=== PATIENT | male | born 1965 | race Two or more races ===

== ENCOUNTER 2024-02-19 22:42 | Emergency (ER) | payer OTHER, MEDICAID ==
[~2024-02-19] VITALS: Ht 167.6 cm; Wt 100.0 kg
[2024-02-19] MEDS: FAMOTIDINE (10MG/ML) 2ML VL IV ONE (23:00)
[2024-02-19] MEDS: SODIUM CHLORIDE 0.9% 500 ML IV ONE (23:00)
[2024-02-19] MEDS ORDERED: ONDANSETRON HCL 4 MG/2 ML VIAL IV ONE (23:00)
--- NOTE | 2024-02-19 23:04 | ED.PDOC ---
GI ASSESSMENT HPI Comments 58-year-old male came to ER via EMS for nausea and vomiting. Patient for the past couple of hours having episodes of nausea and vomiting, about 4-5 times, blackish in color. Noted to have abdominal discomfort, but denies any acute pain or changes in bowel habit. Patient admits that he has been drinking alcoh ol today. He does take Plavix for a recent cranial surgery/coiling of aneurysm. 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 Allergies: Coded Allergies: NO KNOWN ALLERGIES (Unverified , 02/19/24) Home Meds Active Scripts Famotidine (PEPCID TABLET) 20 Mg Tb, 1 TAB PO BID PRN for 30 Days, #60 TAB 5 Refills Prov:CHRISTEL LYON MD 02/20/24 Ondansetron HCl (Ondansetron Hydrochloride) 8 Mg Tab, 8 MG PO Q6HP PRN for 10 Days, #40 TAB Prov:CHRISTEL LYON MD 02/20/24 Famotidine (PEPCID TABLET) 20 Mg Tb, 1 TAB PO BID PRN for 10 Days, #20 TAB 5 Refills Prov:CHRISTEL LYON MD 02/20/24 Ondansetron HCl (Ondansetron Hydrochloride) 8 Mg Tab, 8 MG PO Q6HP PRN for 10 Days, #40 TAB Prov:CHRISTEL LYON MD 02/20/24 Information Source: Patient, Emergency Med Personnel Mode of Arrival: EMS Timing: Hours Duration: Since onset Prehospital treatment: None Quality: Aching Vomitus: Blood on Tissue Paper, Coffee Grounds Stool: Normal Severity: Moderate Recent: Ingestion of ETOH Recent Hx of: None Pain Location: Epigastric Modifying Factors: Nothing Associated sign and symptoms: Nausea, Vomiting, Hematemesis, Abdominal Pain Past Medical History PAST MEDICAL HISTORY: High Lipids, HTN Surgical History (Other): Coiling of aneurysm last month Family History Family History: Reviewed,noncontributory to illness Social History Smoker: Non-Smoker Alcohol: Heavy Drugs: Denies Drug Use Lives In: Home Constitutional: denies: chills, diaphoresis, fatigue, fever, malaise, sweats, weakness, others EENTM: denies: blurred vision, double vision, ear bleeding, ear discharge, ear drainage, ear pain, ear ringing, eye pain, eye redness, hearing loss, mouth pain, mouth swelling, nasal discharge, nose bleeding, nose congestion, nose pain, photophobia, tearing, throat pain, throat swelling, voice changes, others Respiratory: denies: cough, hemoptysis, orthopnea, SOB at rest, shortness of breath, SOB with excertion, stridor, wheezing, others Cardiovascular: denies: chest pain, dizzy spells, diaphoresis, Dyspnea on exertion, edema, irregular heart beat, left arm pain, lightheadedness, palpitations, PND, syncope, others Gastrointestinal: reports: abdominal pain, hematemesis, nausea, vomiting; denies: abdomen distended, blood streaked bowels, constipated, diarrhea, dysphagia, difficulty swallowing, melena, poor appetite, poor fluid intake, rectal bleeding, rectal pain, others Genitourinary: denies: burning, dysuria, flank pain, frequency, hematuria, incontinence, penile discharge, penile sore, pain, testicle pain, testicle swelling, urgency, others Neurological: denies: dizziness, fainting, headache, left sided numbness, left sided weakness, numbness, paresthesia, pre-existing deficit, right sided numbness, right sided weakness, seizure, speech problems, tingling, tremors, weakness, others Musculoskeletal: denies: back pain, gout, joint pain, joint swelling, muscle pain, muscle stiffness, neck pain, others Integumetry: denies: bruises, change in color, change in hair/nails, dryness, laceration, lesions, lumps, rash, wounds, others Allergic/Immunocompromised: denies: Difficulty Healing, Frequent Infections, Hives, Itching, others Hematologic/Lymphatic: denies: anemia, blood clots, easy bleeding, easy bruising, swollen glands, others Endocrine: denies: excessive hunger, excessive sweating, excessive thirst, excessive urination, flushing, intolerance to cold, intolerance to heat, unexplained weight gain, unexplained weight loss, others Psychiatric: denies: anxiety, bipolar disorder, depression, hopeless, panic disorder, schizophrenia, sleepless, suicidal, others Physical Exam General Appearance: No Apparent Distress, Normal HEENT: Normal ENT Inspection, Pharynx Normal, TMs Normal Neck: Full Range of Motion, Non-Tender, Normal, Normal Inspection Respiratory: Chest Non-Tender, Lungs Clear, No Accessory Muscle Use, No Respiratory Distress, Normal Breath Sounds Cardiovascular: No Edema, No JVD, No Murmur, No Gallop, Normal Peripheral Pulses, Regular Rate/Rhythm Breast Exam: Deferred Gastrointestinal: No Organomegaly, Non Tender, No Pulsatile Mass, Normal Bowel Sounds, Soft Genitalia: Deferred Pelvic: Deferred Rectal: Deferred Extremities: No calf tenderness, Normal capillary refill, Normal inspection, Normal range of motion, Non-tender, No pedal edema Musculoskeletal : Apperance: Normal Neurologic: Alert, bucket hooker II-XII nml as Tested, No Motor Deficits, Normal Affect, Normal Mood, No Sensory Deficits Cerebellar Function: Normal Reflexes: Normal Skin: Dry, Normal Color, Warm Lymphatic: No Adenopathy Was a procedure done? Was a procedure done?: No GI differential Dx Differential Diagnosis: Diverticular disease, Gastritis/PUD, Gastroenteritis, GI hemorrhage, Pancreatitis, UTI, Urolithiasis, Dehydration, Anemia, Esophageal Varicies X-Ray, Labs, Meds, VS Vital Signs Date Time Temp Pulse Resp B/P (MAP) Pulse Ox O2 Delivery O2 Flow Rate FiO2 02/20/24 00:40 98.5 83 21 110/74 (86) 96 98.5 02/19/24 22:50 98.5 92 18 131/80 (97) 99 Lab Test 02/19/24 23:05 Range/Units White Blood Count 6.1 4.4-10.8 10^3/uL Red Blood Count 4.48 L 4.5-5.90 10^6/uL Hemoglobin 12.4 L 13.5-17.5 g/dL Hematocrit 37.8 L 41.0-53.0 % Mean Corpuscular Volume 84.5 80.0-100.0 fL Mean Corpuscular Hemoglobin 27.6 L 28.0-32.0 pg Mean Corpuscular Hemoglobin Concent 32.6 32.0-36.0 g/dL Red Cell Distribution Width 15.1 H 11.8-14.3 % Platelet Count 394 140-450 10^3/uL Mean Platelet Volume 7.8 6.9-10.8 fL Neutrophils (%) (Auto) 61.2 37.0-80.0 % Lymphocytes (%) (Auto) 19.3 10.0-50.0 % Monocytes (%) (Auto) 6.8 0.0-12.0 % Eosinophils (%) (Auto) 11.9 H 0.0-7.0 % Basophils (%) (Auto) 0.8 0.0-2.0 % Neutrophils # (Auto) 3.7 1.6-8.6 10 ^3/uL Lymphocytes # (Auto) 1.2 0.4-5.4 10 ^3/uL Monocytes # (Auto) 0.4 0-1.3 10 ^3/uL Eosinophils # (Auto) 0.7 0-0.8 10 ^3/uL Basophils # (Auto) 0 0-0.2 10 ^3/uL Nucleated Red Blood Cells 0.1 % Prothrombin Time 11.5 9.3-11.8 sec Prothrombin Time INR 1.09 0.9-1.15 Activated Partial Thromboplast Time 29.8 24.5-34.5 SEC Sodium Level 141 136-145 mmol/L Potassium Level 3.2 L 3.5-5.1 mmol/L Chloride Level 99 98-107 mmol/L Carbon Dioxide Level 30 20-31 mmol/L Anion Gap 12 5-15 Blood Urea Nitrogen 18 9-23 mg/dL Creatinine 0.73 0.700-1.30 mg/dL Glomerular Filtration Rate Calc 105 >90 mL/min BUN/Creatinine Ratio 24.7 H 10.0-20.0 Serum Glucose 124 H 74-106 mg/dL Calcium Level 9.9 8.7-10.4 mg/dL Total Bilirubin 0.3 0.2-1.0 mg/dL Aspartate Amino Transferase (AST) 25 13-40 U/L Alanine Aminotransferase (ALT) 32 7-40 U/L Alkaline Phosphatase 98 46-116 U/L Total Protein 7.4 5.7-8.2 g/dL Albumin 4.4 3.2-4.8 g/dL Current Medications Medications (Trade) Dose Ordered Sig/Magdalene Route Start Time Stop Time Status Last Admin Famotidine (Pepcid Tablet) 40 mg ONCE ONCE PO 02/20/24 00:15 02/20/24 00:16 DC 02/20/24 00:30 Al Hydrox/Mg Hydrox/Simethicone (Maalox Plus) 30 ml ONCE ONCE PO 02/20/24 00:15 02/20/24 00:16 DC 11/30/24 00:30 Ondansetron HCl (Zofran Po) 4 mg ONCE ONCE PO 02/20/24 00:25 02/20/24 00:26 DC 02/20/24 00:30 Time of 1ST Reevaluation: 22:57 Reevaluation 1ST: Unchanged Patient Education/Counseling: Diagnosis, Treatment Family Education/Counseling: No Family Present Departure 1 Departure Time of Disposition: 23:50 Impression: Primary Impression: Nausea and vomiting Disposition: 01 HOME / SELF CARE / HOMELESS Condition: Stable e-Prescriptions Famotidine (PEPCID TABLET) 20 Mg Tb 1 TAB PO BID PRN for 30 Days, #60 TAB 5 Refills Prov: CHRISTEL LYON MD 02/20/24 Ondansetron HCl (Ondansetron Hydrochloride) 8 Mg Tab 8 MG PO Q6HP PRN for 10 Days, #40 TAB Prov: CHRISTEL LYON MD 02/20/24 Famotidine (PEPCID TABLET) 20 Mg Tb 1 TAB PO BID PRN for 10 Days, #20 TAB 5 Refills Prov: CHRISTEL LYON MD 02/20/24 Ondansetron HCl (Ondansetron Hydrochloride) 8 Mg Tab 8 MG PO Q6HP PRN for 10 Days, #40 TAB Prov: CHRISTEL LYON MD 02/20/24 Discharged With: Self Critical Care Note Critical Care Time?: No Stability Stability form required: No Heart Score Heart Score: Heart Score Response (Comments) Value History Slightly Suspicious 0 EKG Normal 0 Age 45-64 1 Risk Factors 1 or 2 risk factors 1 Troponin Normal limit 0 Total 2 I personally scribed for CHRISTEL LYON MD ([email or web address]) on 02/19/24 at 23:04. Electronically submitted by Chema Oden ([email or web address]). CHRISETL LYON MD Feb 19, 2024 23:04
[2024-02-19 23:19] LABS: Basophils # (auto) 0 10 ^3/uL (0-0.2); Basophils % (auto) 0.8 % (0.0-2.0); Eosinophils # (auto) 0.7 10 ^3/uL (0-0.8); Eosinophils % (auto) 11.9 % (0.0-7.0); Hematocrit 37.8 % (41.0-53.0); Hemoglobin 12.4 g/dL (13.5-17.5); Lymphocytes # (auto) 1.2 10 ^3/uL (0.4-5.4); Lymphocytes % (auto) 19.3 % (10.0-50.0); Mean Corpuscular Hemoglobin 27.6 pg (28.0-32.0); Mean Corpuscular Hgb Conc. 32.6 g/dL (32.0-36.0); Mean Corpuscular Volume 84.5 fL (80.0-100.0); Monocytes # (auto) 0.4 10 ^3/uL (0-1.3); Monocytes % (auto) 6.8 % (0.0-12.0); Neutrophils # (auto) 3.7 10 ^3/uL (1.6-8.6); Neutrophils % (auto) 61.2 % (37.0-80.0); Nucleated Red Blood Cells % 0.1 %; Platelet Count (auto) 394 10^3/uL (140-450); Red Blood Cells 4.48 10^6/uL (4.5-5.90); Red Cell Distribution Width 15.1 % (11.8-14.3); White Blood Cell 6.1 10^3/uL (4.4-10.8)
[2024-02-19 23:34] LABS: INR 1.09 (0.9-1.15); Partial Thromboplastin Time 29.8 SEC (24.5-34.5); Prothrombin Time 11.5 sec (9.3-11.8)
[2024-02-19 23:45] LABS: Alanine Aminotransferase 32 U/L (7-40); Albumin 4.4 g/dL (3.2-4.8); Alkaline Phosphatase 98 U/L (46-116); Anion Gap 12 (5-15); Aspartate Aminotransferase 25 U/L (13-40); BUN/Creatinine Ratio 24.7 (10.0-20.0); Blood Urea Nitrogen 18 mg/dL (9-23); Calcium 9.9 mg/dL (8.7-10.4); Carbon Dioxide 30 mmol/L (20-31); Chloride 99 mmol/L (98-107); Sodium 141 mmol/L (136-145)
[2024-02-19 23:46] LABS: Total Protein 7.4 g/dL (5.7-8.2)
[2024-02-19 23:54] LABS: Potassium 3.2 mmol/L (3.5-5.1)
[2024-02-19 23:55] LABS: Bilirubin, Total 0.3 mg/dL (0.2-1.0); Glucose 124 mg/dL (74-106)
[2024-02-20] MEDS ORDERED: ONDA-180 PO (00:11)
[2024-02-20] MEDS ORDERED: FAMO20TA10 PO (00:11)
[2024-02-20] MEDS: ONDANSETRON ODT 4 MG TAB PO ONE (00:30)
[2024-02-20] MEDS: FAMOTIDINE 20 MG TAB PO ONE (00:30)
[2024-02-20] MEDS: MAALOX PLUS or MAALOX 30 ML PO ONE (00:30)
[2024-02-20 00:40] VITALS: BP 110/74; PULSE 83; RESP 21; TEMP 98.5; O2SAT 96
== END 2024-02-20 00:41 | disposition home or self-care (01) ==
LOC: EDBD 22:42 → ER 22:42
DX: R11.2 Nausea with vomiting, unspecified (principal); E78.5 Hyperlipidemia, unspecified; I10 Essential (primary) hypertension; F10.10 Alcohol abuse, uncomplicated; Z98.890 Other specified postprocedural states; Z79.899 Other long term (current) drug therapy
CPT/HCPCS: 36415; 80053; 85025; 85610; 85730; 99284; Q0162

== ENCOUNTER 2024-08-22 03:05 | Inpatient (IN) | payer OTHER, MEDICAID ==
[2024-08-22] VITALS (7 sets, daily range): BP systolic 133–154; BP diastolic 77–83; PULSE 66–98; RESP 12–21; TEMP 98–98.6; O2SAT 95–98
[~2024-08-22] VITALS: Ht 175.3 cm; Wt 104.0 kg
[~2024-08-22 03:05] MED LIST: FAMO20TA10 PO; ONDA-180 PO
--- NOTE | 2024-08-22 03:49 | ED.PDOC ---
History of Present Illness HPI Comments 58 y/o M is BIBA for c/o nonradiating, diffused abdominal pain, with associated nausea and vomiting. Patient is a poor historian. He endorses on sudden and unprovoked onset of symptoms, that awoke him from his sleep, this morning. History of craniotomy, coiling of aneurism, C3-7 spine surgery, HLD, HTN, and alcohol abuse reported. Patient denies having any bloody or bilious vomitus, diarrhea, constipation, urinary symptoms, fever, chills, or further associated symptoms. Vitals were within normal limits and stable, with exception on being hypertensive. Chief Complaint: Abdominal Pain Time Seen by MD: 03:30 Reviewed Notes: Nurses Notes, Geophysical Laboratory Director Notes, Medications, Allergies Allergies: Coded Allergies: NO KNOWN ALLERGIES (Unverified , 02/19/24) Home Meds Active Scripts Famotidine (PEPCID TABLET) 20 Mg Tb, 1 TAB PO BID PRN for 30 Days, #60 TAB 5 Refills Prov:CHRISTEL LYON MD 02/20/24 Ondansetron HCl (Ondansetron Hydrochloride) 8 Mg Tab, 8 MG PO Q6HP PRN for 10 Days, #40 TAB Prov:CHRISTEL LYON MD 02/20/24 Famotidine (PEPCID TABLET) 20 Mg Tb, 1 TAB PO BID PRN for 10 Days, #20 TAB 5 Refills Prov:CHRISTEL LYON MD 02/20/24 Ondansetron HCl (Ondansetron Hydrochloride) 8 Mg Tab, 8 MG PO Q6HP PRN for 10 Days, #40 TAB Prov:CHRISTEL LYON MD 02/20/24 Information Source: Patient, Emergency Med Personnel Mode of Arrival: Ambulatory Severity: Moderate Timing: Hours Duration: Since onset Prehospital treatment: 12 Lead EKG, Accucheck, Building Pressure Washer Past Medical History PAST MEDICAL HISTORY: High Lipids, HTN Past Medical History (Other): brain aneurism Surgical History (Other): Craniotomy C3-7 spine surgery Coiling of aneurism Family History Family History: Reviewed,noncontributory to illness Social History Smoker: Non-Smoker Alcohol: Heavy Drugs: Denies Drug Use Lives In: Home All Other Systems: Reviewed and Negative (Comprehensive systems review obtained and negative except for what is stated in the HPI.) Physical Exam General Appearance: No Apparent Distress, Normal HEENT: Normal ENT Inspection, Pharynx Normal, TMs Normal Neck: Full Range of Motion, Non-Tender, Normal, Normal Inspection Respiratory: Chest Non-Tender, Lungs Clear, No Accessory Muscle Use, No Respiratory Distress, Normal Breath Sounds Cardiovascular: No Edema, No JVD, No Murmur, No Gallop, Normal Peripheral Puls es, Regular Rate/Rhythm Breast Exam: Deferred Gastrointestinal: Diffuse (tenderness), No Organomegaly, No Pulsatile Mass, Normal Bowel Sounds, Soft, Tenderness (diffused ) Genitalia: Deferred Pelvic: Deferred Rectal: Deferred Extremities: No calf tenderness, Normal capillary refill, Normal inspection, Normal range of motion, Non-tender, No pedal edema Musculoskeletal : Apperance: Normal Neurologic: Alert, novelties sales representative II-XII nml as Tested, No Motor Deficits, Normal Affect, Normal Mood, No Sensory Deficits Cerebellar Function: Normal Reflexes: Normal Skin: Dry, Normal Color, Warm Lymphatic: No Adenopathy Was a procedure done? Was a procedure done?: No Differential Dx Considerations may include: gastritis, gastroenteritis, cholelithiasis, cholecystitis, nephrolithiasis, UTI, diverticulitis, appendicitis, among others X-Ray, Labs, Meds, VS Vital Signs Date Time Temp Pulse Resp B/P (MAP) Pulse Ox O2 Delivery O2 Flow Rate FiO2 08/22/24 03:05 98.5 87 18 141/83 (102) 99 98.5 Lab Test 08/22/24 04:38 08/22/24 03:37 Range/Units Troponin I High Sensitivity 3 L < 3 L </=54 ng/L White Blood Count 5.1 4.4-10.8 10^3/uL Red Blood Count 5.18 4.5-5.90 10^6/uL Hemoglobin 14.5 13.5-17.5 g/dL Hematocrit 43.0 41.0-53.0 % Mean Corpuscular Volume 83.1 80.0-100.0 fL Mean Corpuscular Hemoglobin 28.1 28.0-32.0 pg Mean Corpuscular Hemoglobin Concent 33.8 32.0-36.0 g/dL Red Cell Distribution Width 19.8 H 11.8-14.3 % Platelet Count 249 140-450 10^3/uL Mean Platelet Volume 8.5 6.9-10.8 fL Neutrophils (%) (Auto) 72.8 37.0-80.0 % Lymphocytes (%) (Auto) 18.9 10.0-50.0 % Monocytes (%) (Auto) 5.3 0.0-12.0 % Eosinophils (%) (Auto) 2.3 0.0-7.0 % Basophils (%) (Auto) 0.7 0.0-2.0 % Neutrophils # (Auto) 3.7 1.6-8.6 10 ^3/uL Lymphocytes # (Auto) 1.0 0.4-5.4 10 ^3/uL Monocytes # (Auto) 0.3 0-1.3 10 ^3/uL Eosinophils # (Auto) 0.1 0-0.8 10 ^3/uL Basophils # (Auto) 0 0-0.2 10 ^3/uL Nucleated Red Blood Cells 0.0 % Sodium Level 135 L 136-145 mmol/L Potassium Level 3.5 3.5-5.1 mmol/L Chloride Level 95 L 98-107 mmol/L Carbon Dioxide Level 26 20-31 mmol/L Anion Gap 14 5-15 Blood Urea Nitrogen 16 9-23 mg/dL Creatinine 1.27 0.700-1.30 mg/dL Glomerular Filtration Rate Calc 65 >90 mL/min BUN/Creatinine Ratio 12.6 10.0-20.0 Serum Glucose 141 H 74-106 mg/dL Calcium Level 10.0 8.7-10.4 mg/dL Current Medications Medications (Trade) Dose Ordered Sig/Magdalene Route Start Time Stop Time Status Last Admin Sodium Chloride 1,000 ml @ 1,000 mls/hr Q1H ONCE IV 08/22/24 03:30 08/22/24 04:29 DC 08/22/24 03:53 Ondansetron HCl (Zofran) 4 mg ONCE ONCE IV 08/22/24 03:30 08/22/24 03:31 DC 08/22/24 03:53 Famotidine (Pepcid Injection) 20 mg ONCE ONCE IV 08/22/24 03:30 08/22/24 03:31 DC 08/22/24 03:53 Ondansetron HCl (Zofran) 4 mg ONCE ONCE IV 08/22/24 04:30 08/22/24 04:31 DC 08/22/24 04:28 Time of 1ST Reevaluation: 04:00 Reevaluation 1ST: Unchanged Patient Education/Counseling: Diagnosis, Treatment Family Education/Counseling: No Family Present Additional Information Previous visits reviewed: February 19, 2024 encounter for nausea and vomiting The following tests were ordered, and results were reviewed by me: EKG, CXR, CBC, BMP, troponin Additional Information was gathered from interviewing the following independent historians: EMS I reviewed and agreed with the following test results read by other providers: CXR I discussed treatment and results with medical personnel and: patient Departure 1 Departure Time of Disposition: 05:39 (Patient with intractable abdominal pain. Labs x- ray otherwise benign. We will admit patient for further workup and expert consultation) Impression: Primary Impression: Intractable abdominal pain Additional Impression: Nausea and vomiting Qualified Codes: R11.2 - Nausea with vomiting, unspecified Disposition: ADMITTED INPATIENT Admit to: Med Surg Condition: Serious Critical Care Note Critical Care Time?: No Stability Stability form required: No Heart Score Heart Score: Heart Score Response (Comments) Value History N/A 0 EKG N/A 0 Age N/A 0 Risk Factors N/A 0 Troponin N/A 0 Total 0 I personally scribed for BREE CARTER MD ([email or web address]) on 08/22/24 at 03:49. Electronically submitted by Pio Bess ([email or web address]). BREE CARTER MD Aug 22, 2024 03:49
[2024-08-22 03:51] LABS: Basophils # (auto) 0 10 ^3/uL (0-0.2); Basophils % (auto) 0.7 % (0.0-2.0); Eosinophils # (auto) 0.1 10 ^3/uL (0-0.8); Eosinophils % (auto) 2.3 % (0.0-7.0); Hemoglobin 14.5 g/dL (13.5-17.5); Lymphocytes % (auto) 18.9 % (10.0-50.0); Mean Corpuscular Hemoglobin 28.1 pg (28.0-32.0); Mean Corpuscular Hgb Conc. 33.8 g/dL (32.0-36.0); Mean Corpuscular Volume 83.1 fL (80.0-100.0); Monocytes # (auto) 0.3 10 ^3/uL (0-1.3); Monocytes % (auto) 5.3 % (0.0-12.0); Neutrophils # (auto) 3.7 10 ^3/uL (1.6-8.6); Neutrophils % (auto) 72.8 % (37.0-80.0); Platelet Count (auto) 249 10^3/uL (140-450); Red Blood Cells 5.18 10^6/uL (4.5-5.90); Red Cell Distribution Width 19.8 % (11.8-14.3); White Blood Cell 5.1 10^3/uL (4.4-10.8)
[2024-08-22] MEDS: ONDANSETRON HCL 4 MG/2 ML VIAL IV ONE ×3 (03:53→05:42)
[2024-08-22] MEDS: FAMOTIDINE (10MG/ML) 2ML VL IV ONE (03:53)
[2024-08-22] MEDS: SODIUM CHLORIDE 0.9% 1,000 ML IV ONE ×2 (03:53→09:29)
[2024-08-22 04:07] LABS: Potassium 3.5 mmol/L (3.5-5.1)
[2024-08-22 04:08] LABS: Anion Gap 14 (5-15); Carbon Dioxide 26 mmol/L (20-31); Chloride 95 mmol/L (98-107); Sodium 135 mmol/L (136-145)
[2024-08-22 04:13] LABS: BUN/Creatinine Ratio 12.6 (10.0-20.0); Blood Urea Nitrogen 16 mg/dL (9-23)
[2024-08-22 04:15] LABS: Glucose 141 mg/dL (74-106)
--- NOTE | 2024-08-22 05:41 | DVH ---
EXAM: XR Chest, 1 View CLINICAL INDICATION: chest pain TECHNIQUE: Frontal view of the chest. COMPARISON: None FINDINGS: LUNGS AND PLEURAL SPACES: Unremarkable. No consolidation. No pneumothorax. HEART: Unremarkable. No cardiomegaly. MEDIASTINUM: Unremarkable. Normal mediastinal contour. BONES/JOINTS: Unremarkable. No acute fracture. OTHER FINDINGS: . IMPRESSION: No acute cardiopulmonary process.
[2024-08-22] MEDS: IOHEXOL 300 MG/ML 100ML BOTTLE IJ ONE (06:24)
--- NOTE | 2024-08-22 06:37 | ECG ---
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
--- NOTE | 2024-08-22 06:45 | DVH ---
EXAM: CT Abdomen and Pelvis With Intravenous Contrast CLINICAL INDICATION: abdominal pain TECHNIQUE: Axial computed tomography images of the abdomen and pelvis with intravenous contrast. Th is CT exam was performed using one or more of the following dose reduction techniques: automated exp osure control, adjustment of the mA and/or kV according to patient size, and/or use of iterative [place] nstruction technique. CONTRAST: RADIATION DOSE: CTDIvol = 24.02 mGy, DLP = 1176.18 mGy-cm COMPARISON: None FINDINGS: LUNG BASES: Unremarkable. No mass. No consolidation. MEDIASTINUM: Small esophageal hiatal hernia. ABDOMEN: LIVER: Hepatomegaly with fatty infiltration. GALLBLADDER AND BILE DUCTS: Unremarkable. No calcified stones. No ductal dilation. PANCREAS: Unremarkable. No mass. No ductal dilation. SPLEEN: Unremarkable. No splenomegaly. ADRENALS: Unremarkable. No mass. KIDNEYS AND URETERS: Unremarkable. No solid mass. No hydronephrosis. STOMACH AND BOWEL: Fecal retention in the colon consistent with constipation. Colonic diverticulos is without acute diverticulitis. No obstruction. PELVIS: APPENDIX: No findings to suggest acute appendicitis. BLADDER: Unremarkable. No mass. REPRODUCTIVE: Unremarkable as visualized. ABDOMEN and PELVIS: INTRAPERITONEAL SPACE: Unremarkable. No free air. No significant fluid collection. BONES/JOINTS: No acute fracture. No dislocation. SOFT TISSUES: Umbilical hernia containing fat. VASCULATURE: Unremarkable. No abdominal aortic aneurysm. LYMPH NODES: Unremarkable. No enlarged lymph nodes. OTHER FINDINGS: . . IMPRESSION: 1. Small esophageal hiatal hernia. 2. Hepatomegaly with fatty infiltration. 3. Umbilical hernia containing fat. 4. Fecal retention in the colon consistent with constipation. 5. Colonic diverticulosis without acute diverticulitis.
[2024-08-22] MEDS ORDERED: ONDANSETRON HCL 4 MG/2 ML VIAL IV PRN ×2 (08:00→09:30)
[2024-08-22] MEDS ORDERED: ACETAMINOPHEN 325 MG TAB PO PRN (08:00)
[2024-08-22] MEDS ORDERED: DOCUSATE SOD 100 MG CAP PO PRN (08:00)
[2024-08-22] MEDS ORDERED: FLUO40CA PO (08:14)
[2024-08-22] MEDS ORDERED: ATOR40TA52 PO (08:14)
[2024-08-22] MEDS ORDERED: CLOP75TA70 PO (08:15)
[2024-08-22] MEDS ORDERED: QUET100T47 PO (08:15)
[2024-08-22] MEDS ORDERED: GABA-1250 PO (08:15)
[2024-08-22] MEDS ORDERED: ASPI-665 PO (08:15)
[2024-08-22] MEDS ORDERED: HYDR12.55 PO (08:15)
[2024-08-22] MEDS ORDERED: CHOL20003 PO (08:15)
[2024-08-22] MEDS ORDERED: HYDR-4072 PO (08:15)
[2024-08-22] MEDS ORDERED: MET50T PO (08:15)
--- NOTE | 2024-08-22 08:18 | DVHHP2 ---
History of Present Illness Reason for Visit: Abdominal pain History of Present Illness Wei Ojeda is a 58-year-old male with past medical history of hypertension, hyperlipidemia, chronic pain, brain aneurysm, bipolar, and schizophrenia, who came to the hospital due to abdominal pain. Patient states his abdominal pain started suddenly. He describes it as a burning pain. States he had an EGD completed prior that showed he had gastritis and esophagitis. He was on Prilosec and that worked well for him. Then he had to have a stent and coil placed in his brain. He was started on Plavix and the Prilosec was stopped and switched to pepcid. He states ever since then his stomach has been getting worse. He states the Pepcid does not work as well as the Prilosec did. 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 (brain aneurysm) Psych: Bipolar, Schizophrenia Smoke: <1 pack per day ALCOHOL: occassional Drugs: None Lives: Other (board and care) Domestic Violence: Neg Review of Systems Constitutional: No: Fever, Chills, Sweats, Weakness, Malaise, Other Eyes: No: Pain, Vision change, Conjunctivae inflammation, Eyelid inflammation, Other, Redness ENT: No: Ear pain, Ear discharge, Nose pain, Nose discharge, Nose congestion, Mouth pain, Mouth swelling, Throat pain, Throat swelling, Other Respiratory: No: Cough, Dry, Shortness of breath, SOB with excertion, Wheezing, Hemoptysis, Pleuritic Pain, Sputum, Wheezing, Other Cardiovascular: No: Chest Pain, Palpitations, Orthopnea, Paroxysmal Noc. Dyspnea, Edema, Lt Headedness, Other Gastrointestinal: Nausea, Vomiting, Abdominal Pain; No: Diarrhea, Constipation, Melena, Hematochezia, Other Genitourinary: No Dysuria, No Frequency, No Incontinence, No Hematuria, No Retention, No Other Musculoskeletal: No: other, neck pain, shoulder pain, arm pain, back pain, hand pain, leg pain, foot pain Skin: No: Rash, Lesions, Jaundice, Bruising, Other Neurological: No: Weakness, Numbness, Incoordination, Change in speech, Confusion, Seizures, Other Allergies: Coded Allergies: NO KNOWN ALLERGIES (Unverified , 02/19/24) Medications Current Medications Medications Dose Ordered Sig/Magdalene Route Start Time Stop Time Status Last Admin Dose Admin Metoclopramide HCl 5 mg Q6HPRN PRN IV 08/22/24 07:45 Exam Vital Signs Vital Signs Date Time Temp Pulse Resp B/P (MAP) Pulse Ox O2 Delivery O2 Flow Rate FiO2 08/22/24 06:30 98.5 91 21 131/88 (102) 96 98.5 08/22/24 06:30 Room Air* 0 21 General Appearance: Alert, Oriented X3, Cooperative, mild distress HEENT: Atraumatic, PERRLA Respiratory: Clear to auscultation, Normal air movement Cardiovascular: Regular rate, Normal S1, Normal S2, No murmurs Abdominal: Normal bowel sounds, Soft, No hepatospenomegaly, Other (C/O abdominal pain and nausea) Extremities: No clubbing, No cyanosis, No edema, Normal pulses, No tenderness/swelling Skin: No rashes, No breakdown, No significant lesion Neuro: Normal gait, Normal speech, Strength at 5/5 X4 ext, Normal tone Psych/Mental Status: Mental status NL, Mood NL Labs/Xrays Labs Test 08/22/24 07:45 08/22/24 03:37 Range/Units Troponin I High Sensitivity < 3 L </=54 ng/L White Blood Count 5.1 4.4-10.8 10^3/uL Red Blood Count 5.18 4.5-5.90 10^6/uL Hemoglobin 14.5 13.5-17.5 g/dL Hematocrit 43.0 41.0-53.0 % Mean Corpuscular Volume 83.1 80.0-100.0 fL Mean Corpuscular Hemoglobin 28.1 28.0-32.0 pg Mean Corpuscular Hemoglobin Concent 33.8 32.0-36.0 g/dL Red Cell Distribution Width 19.8 H 11.8-14.3 % Platelet Count 249 140-450 10^3/uL Mean Platelet Volume 8.5 6.9-10.8 fL Neutrophils (%) (Auto) 72.8 37.0-80.0 % Lymphocytes (%) (Auto) 18.9 10.0-50.0 % Monocytes (%) (Auto) 5.3 0.0-12.0 % Eosinophils (%) (Auto) 2.3 0.0-7.0 % Basophils (%) (Auto) 0.7 0.0-2.0 % Neutrophils # (Auto) 3.7 1.6-8.6 10 ^3/uL Lymphocytes # (Auto) 1.0 0.4-5.4 10 ^3/uL Monocytes # (Auto) 0.3 0-1.3 10 ^3/uL Eosinophils # (Auto) 0.1 0-0.8 10 ^3/uL Basophils # (Auto) 0 0-0.2 10 ^3/uL Nucleated Red Blood Cells 0.0 % Sodium Level 135 L 136-145 mmol/L Potassium Level 3.5 3.5-5.1 mmol/L Chloride Level 95 L 98-107 mmol/L Carbon Dioxide Level 26 20-31 mmol/L Anion Gap 14 5-15 Blood Urea Nitrogen 16 9-23 mg/dL Creatinine 1.27 0.700-1.30 mg/dL Glomerular Filtration Rate Calc 65 >90 mL/min BUN/Creatinine Ratio 12.6 10.0-20.0 Serum Glucose 141 H 74-106 mg/dL Calcium Level 10.0 8.7-10.4 mg/dL EXAM: XR Chest, 1 View COMPARISON: None FINDINGS: LUNGS AND PLEURAL SPACES: Unremarkable. No consolidation. No pneumothorax. HEART: Unremarkable. No cardiomegaly. MEDIASTINUM: Unremarkable. Normal mediastinal contour. BONES/JOINTS: Unremarkable. No acute fracture. OTHER FINDINGS: . IMPRESSION: No acute cardiopulmonary process. EXAM: CT Abdomen and Pelvis With Intravenous Contrast FINDINGS: LUNG BASES: Unremarkable. No mass. No consolidation. MEDIASTINUM: Small esophageal hiatal hernia. ABDOMEN: LIVER: Hepatomegaly with fatty infiltration. GALLBLADDER AND BILE DUCTS: Unremarkable. No calcified stones. No ductal dilation. PANCREAS: Unremarkable. No mass. No ductal dilation. SPLEEN: Unremarkable. No splenomegaly. ADRENALS: Unremarkable. No mass. KIDNEYS AND URETERS: Unremarkable. No solid mass. No hydronephrosis. STOMACH AND BOWEL: Fecal retention in the colon consistent with constipation. Colonic diverticulosis without acute diverticulitis. No obstruction. PELVIS: APPENDIX: No findings to suggest acute appendicitis. BLADDER: Unremarkable. No mass. REPRODUCTIVE: Unremarkable as visualized. ABDOMEN and PELVIS: INTRAPERITONEAL SPACE: Unremarkable. No free air. No significant fluid collection. BONES/JOINTS: No acute fracture. No dislocation. SOFT TISSUES: Umbilical hernia containing fat. VASCULATURE: Unremarkable. No abdominal aortic aneurysm. LYMPH NODES: Unremarkable. No enlarged lymph nodes. OTHER FINDINGS: . . IMPRESSION: 1. Small esophageal hiatal hernia. 2. Hepatomegaly with fatty infiltration. 3. Umbilical hernia containing fat. 4. Fecal retention in the colon consistent with constipation. 5. Colonic diverticulosis without acute diverticulitis. Assessment/Plan Assessment/Plan Assessment: Intractable abdominal pain, Constipation, Nausea/vomiting, Bipolar, Schizophrenia, Hypertension, Hyperlipidemia, Plan: Admit to Med-Surg, IV Protonix BID, Antiemetics, Lactulose for constipation, Pain management, Home medications reconciled, Plan discussed with: Patient My Orders Orders - SHELL VINCENT Procedure Category Date Status Time Metoclopramide PHA 08/22/24 In Process Injection (Reglan 07:45 Date of Service: Aug 22, 2024 Billing Provider: SHELL VINCENT Common Visit Codes: [id number] INP/OBS CARE (MOD) SHELL VINCENT Aug 22, 2024 08:18
[2024-08-22] MEDS: PANTOPRAZOLE 40 MG/10 ML VIAL INJ IV ONE (08:24)
[2024-08-22] MEDS: POTASSIUM CHL 20 Meq TABLET PO ONE (09:28)
[2024-08-22] MEDS: METOCLOPRAMIDE HCL 5MG/ml INJ 2ml VIAL IV PRN (09:28)
[2024-08-22] MEDS ORDERED: LACTULOSE 20Gm/30ML SOLN PO PRN (09:30)
[2024-08-22] MEDS ORDERED: LACTULOSE 20Gm/30ML SOLN PO ONE (09:30)
[2024-08-22] MEDS: SODIUM CHLORIDE 0.9% 1,000 ML IV SCH (10:15)
[2024-08-22] MEDS: GABAPENTIN 300 MG CAP PO SCH (13:22)
[2024-08-22] MEDS: CHOLECALCIFEROL (VITD3) 1,000UNIT=25mCg TAB PO SCH (15:03)
[2024-08-22] MEDS: HYDROcodone-ACET 10/325MG TAB PO PRN (17:43)
[2024-08-22] MEDS: QUEtiapine FUMARATE 100 MG TAB PO SCH (21:50)
[2024-08-22] MEDS: PANTOPRAZOLE 40 MG/10 ML VIAL INJ IV SCH (21:50)
[2024-08-22] MEDS: ATORVASTATIN 20 MG TAB PO SCH (21:51)
[2024-08-22] MEDS: METOPROLOL TARTRATE 50 MG TAB PO SCH (21:51)
[2024-08-22 22:10] LABS: Urine Bacteria None Seen /hpf (None Seen)
[2024-08-22 22:26] LABS: Urine Blood Negative /uL (Negative); Urine Clarity Clear (Clear); Urine Color Light-Yellow (Yellow); Urine Protein, UAD Negative (Negative); Urine Specific Gravity 1.018 (1.001-1.035); Urine Squamous Epithelial Cell None Seen /hpf (<5); Urine Urobilinogen Normal (Negative); Urine WBC < 1 /HPF (0-3)
[2024-08-23] VITALS (7 sets, daily range): BP systolic 105–127; BP diastolic 61–83; PULSE 70–79; RESP 16–19; TEMP 97.6–99; O2SAT 92–97
[2024-08-23 06:07] LABS: Basophils # (auto) 0 10 ^3/uL (0-0.2); Basophils % (auto) 0.8 % (0.0-2.0); Eosinophils # (auto) 0.2 10 ^3/uL (0-0.8); Eosinophils % (auto) 3.4 % (0.0-7.0); Hematocrit 32.9 % (41.0-53.0); Hemoglobin 10.9 g/dL (13.5-17.5); Lymphocytes % (auto) 20.2 % (10.0-50.0); Mean Corpuscular Hemoglobin 27.8 pg (28.0-32.0); Mean Corpuscular Hgb Conc. 33.3 g/dL (32.0-36.0); Mean Corpuscular Volume 83.4 fL (80.0-100.0); Monocytes # (auto) 0.4 10 ^3/uL (0-1.3); Monocytes % (auto) 8.8 % (0.0-12.0); Neutrophils # (auto) 3.2 10 ^3/uL (1.6-8.6); Neutrophils % (auto) 66.8 % (37.0-80.0); Nucleated Red Blood Cells % 0.1 %; Platelet Count (auto) 155 10^3/uL (140-450); Red Blood Cells 3.94 10^6/uL (4.5-5.90); Red Cell Distribution Width 20.6 % (11.8-14.3); White Blood Cell 4.7 10^3/uL (4.4-10.8)
[2024-08-23 06:17] LABS: Alanine Aminotransferase 32 U/L (7-40); Albumin 3.8 g/dL (3.2-4.8); Alkaline Phosphatase 90 U/L (46-116); Anion Gap 9 (5-15); Aspartate Aminotransferase 24 U/L (13-40); BUN/Creatinine Ratio 11.4 (10.0-20.0); Blood Urea Nitrogen 9 mg/dL (9-23); Carbon Dioxide 26 mmol/L (20-31); Chloride 103 mmol/L (98-107); Glucose 96 mg/dL (74-106); Potassium 3.8 mmol/L (3.5-5.1); Sodium 138 mmol/L (136-145)
[2024-08-23 06:18] LABS: Bilirubin, Total 0.7 mg/dL (0.2-1.0)
[2024-08-23 06:25] LABS: Calcium 8.2 mg/dL (8.7-10.4)
[2024-08-23] MEDS: ASPirin-EC 325mg tab PO SCH (09:32)
[2024-08-23] MEDS: FLUoxetine HCL 20 MG CAP PO SCH (09:33)
[2024-08-23] MEDS: CLOPIDOGREL BISULFATE 75 MG TAB PO SCH (09:34)
[2024-08-23] MEDS: hydroCHLOROthiazide 25 MG TAB PO SCH (09:35)
[2024-08-23 10:41] LABS: Hematocrit 34.5 % (41.0-53.0); Hemoglobin 11.3 g/dL (13.5-17.5)
--- NOTE | 2024-08-23 15:43 | DVHPN2 ---
Reviewed: Care Plan, H&P, Labs, Medications, Previous Orders, Radiology Changes from previous H/P or p: No Changes Eyes: No Pain, No Vision change, No Conjunctivae inflammation, No Eyelid inflammation, No Other, No Redness ENT: No Ear pain, No Ear discharge, No Nose pain, No Nose discharge, No Nose congestion, No Mouth pain, No Mouth swelling, No Throat pain, No Throat swelling, No Other Cardiovascular: No Chest Pain, No Palpitations, No Orthopnea, No Paroxysmal Noc. Dyspnea, No Edema, No Lt Headedness, No Other Respiratory: No Cough, No Dry, No Shortness of breath, No SOB with excertion, No Wheezing, No Hemoptysis, No Pleuritic Pain, No Sputum, No Other Gastrointestinal: Nausea, Vomiting, Abdominal Pain; No Diarrhea, No Constipation, No Melena, No Hematochezia, No Other Genitourinary: No Dysuria, No Frequency, No Incontinence, No Hematuria, No Retention, No Other Musculoskeletal: No other, No neck pain, No shoulder pain, No arm pain, No back pain, No hand pain, No leg pain, No foot pain Skin: No Rash, No Lesions, No Jaundice, No Bruising, No Other Objective Vitals Vital Signs Date Time Temp Pulse Resp B/P (MAP) Pulse Ox O2 Delivery O2 Flow Rate FiO2 08/23/24 13:00 97.9 75 18 115/82 (93) 95 97.9 08/23/24 08:00 Room Air* 0 21 Intake/Output Intake and Output 08/23/24 07:00 Intake Total 2400 ml Output Total 1000 ml Balance 1400 ml Intake Oral 100 ml IV Total 2300 ml Output Urine Total 600 ml Emesis 400 ml Medications Current Medications Medications Dose Ordered Sig/Magdalene Route Start Time Stop Time Status Last Admin Dose Admin Metoclopramide HCl 5 mg Q6HPRN PRN IV 08/22/24 07:45 08/22/24 17:38 5 MG Docusate Sodium 100 mg BIDPRN PRN PO 08/22/24 08:00 Acetaminophen 650 mg Q6HP PRN PO 08/22/24 08:00 Ondansetron HCl 4 mg Q4HPRN PRN IV 08/22/24 09:30 Sodium Chloride 1,000 ml @ 100 mls/hr Q10H IV 08/22/24 09:30 08/23/24 15:20 100 MLS/HR Lactulose 30 ml BIDPRN PRN PO 08/22/24 09:30 Pantoprazole Sodium 40 mg BID IV 08/22/24 22:00 08/23/24 09:35 40 MG Aspirin 325 mg DAILY PO 08/23/24 10:00 08/23/24 09:32 325 MG Clopidogrel Bisulfate 75 mg DAILY PO 08/23/24 10:00 08/23/24 09:34 75 MG Gabapentin 300 mg TID PO 08/22/24 14:00 08/23/24 14:15 300 MG Acetaminophen/ Hydrocodone Bitart 1 tab TIDPRN PRN PO 08/22/24 11:15 08/23/24 11:02 1 TAB Metoprolol Tartrate 50 mg BID PO 08/22/24 22:00 08/23/24 09:33 50 MG Quetiapine Fumarate 100 mg HS PO 08/22/24 22:00 08/22/24 21:50 100 MG Atorvastatin Calcium 40 mg HS PO 08/22/24 22:00 08/22/24 21:51 40 MG Cholecalciferol 2,000 unit DAILY PO 08/22/24 14:29 08/23/24 09:32 2,000 UNIT Fluoxetine HCl 40 mg DAILY PO 08/23/24 10:00 08/23/24 09:33 40 MG Hydrochlorothiazide 12.5 mg DAILY PO 08/23/24 10:00 08/23/24 09:35 12.5 MG Laboratory Results Laboratory Tests 08/23/24 05:36 08/23/24 10:20 Chemistry Test 08/23/24 05:36 Albumin 3.8 g/dL (3.2-4.8) Calcium Level 8.2 mg/dL (8.7-10.4) L Total Protein 6.0 g/dL (5.7-8.2) Lipid panel Test 08/23/24 05:36 Lipase Pending LFT Test 08/23/24 05:36 Alanine Aminotransferase (ALT) 32 U/L (7-40) Alkaline Phosphatase 90 U/L (46-116) Aspartate Amino Transferase (AST) 24 U/L (13-40) Total Bilirubin 0.7 mg/dL (0.2-1.0) Urinalysis Test 08/22/24 22:00 Urine Color Light-yellow (Yellow) Urine Clarity Clear (Clear) Urine pH 6.0 (5.0-9.0) Urine Specific [place] 1.018 (1.001-1.035) Urine Protein Negative (Negative) Urine Ketones Negative (Negative) Urine Blood Negative /uL (Negative) Urine Nitrite Negative (Negative) Urine Bilirubin Negative (Negative) Urine Urobilinogen Normal mg/dL (Negative) Urine Leukocyte Esterase Negative /uL (Negative) Urine RBC None seen /hpf (0 - 3) Urine Microscopic WBC < 1 /HPF (0-3) Urine Squamous Epithelial Cells None seen /hpf (<5) Urine Bacteria None seen /hpf (None Seen) Urine Glucose Normal mg/dL (Normal) Labs and/or images reviewed: Labs reviewed by me, Image(s) reviewed by me Assessment/Plan Assessment/Plan Acute abdominal pain: Pantoprazole Carafate consult for GI Dr.N Willingham History of esophagitis Hypertension Hypercholesterolemia Bipolar History of brain aneurysm Schizophrenia Chronic current smoker Plan discussed with: Patient My Orders Orders - JOSSE DIAZ MD Procedure Category Date Status Time Lipase LAB 08/23/24 In Process 15:35 * Gi [facility] Wet Process Miller Head Assistant CONS 08/23/24 Transmitted 15:35 Date of Service: Aug 23, 2024 Billing Provider: JOSSE DIAZ MD Common Visit Codes: [id number] INP/OBS CARE(HIGH) JOSSE DIAZ MD Aug 23, 2024 15:43
[2024-08-23] MEDS: SUCRALFATE 1 GM/10 ML ORAL SUSP PO SCH (17:24)
--- NOTE | 2024-08-23 20:09 | DVHINCON2 ---
Date of service: Aug 23, 2024 Referring Physician Abisai Bullock Reason for Consultation UGI bleed History of Present Illness Wei Ojeda is a 58-year-old male with past medical history of hypertension, hyperlipidemia, chronic pain, brain aneurysm, bipolar, and schizophrenia, who came to the hospital due to abdominal pain. Patient states his abdominal pain started suddenly. He describes it as a burning epigastric pain. States he had an EGD a few yrs ago that showed he had gastritis and esophagitis. He was on Prilosec and that worked well for him. Then he had to have a stent and coil placed in his brain. He was started on Plavix and the Prilosec was stopped and switched to pepcid. He states ever since then his stomach has been getting worse. He states the Pepcid does not work as well as the Prilosec did. 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) Psych: Bipolar, Schizophrenia Smoke: <1 pack per day ALCOHOL: occassional Family History: FH: hypertension Allergies: Coded Allergies: NO KNOWN ALLERGIES (Unverified , 02/19/24) Home Meds Active Scripts Famotidine (PEPCID TABLET) 20 Mg Tb, 1 TAB PO BID PRN for 10 Days, #20 TAB 5 Refills Prov:CHRISTEL LYON MD 02/20/24 Reported Medications Metoprolol Tartrate (LOPRESSOR TABLET) 50 Mg Tb, 1 TAB PO BID 08/22/24 Cholecalciferol (Vitamin D-3 Super Strengt) 2,000 Unit Tab, 1 TAB PO DAILY 08/22/24 Hydrocodone-Acetaminophen (Hydrocodone/Acetaminophen 10-325 mg) 1 Tab Tab, 1 TAB PO TIDPRN PRN 08/22/24 Aspirin (Aspirin Regular Strength) 325 Mg Tab, 1 TAB PO DAILY 08/22/24 Hydrochlorothiazide (Hydrochlorothiazide) 12.5 Mg Tab, 1 TAB PO DAILY 08/22/24 Clopidogrel Bisulfate (CLOPIDOGREL) 75 Mg Tab, 1 TAB PO DAILY 08/22/24 Quetiapine Fumerate (QUETIAPINE FUMARATE) 100 Mg Tab, 1 TAB PO HS 08/22/24 Gabapentin (Gabapentin) 300 Mg Cap, 1 CAP PO TID 08/22/24 Fluoxetine Hcl (Fluoxetine Hcl) 40 Mg Cap, 1 CAP PO DAILY 08/22/24 Atorvastatin Calcium (ATORVASTATIN CALCIUM) 40 Mg Tab, 1 TAB PO DAILY 08/22/24 Discontinued Scripts Famotidine (PEPCID TABLET) 20 Mg Tb, 1 TAB PO BID PRN for 30 Days, #60 TAB 5 Refills Prov:CHRISTEL LYON MD 02/20/24 Ondansetron HCl (Ondansetron Hydrochloride) 8 Mg Tab, 8 MG PO Q6HP PRN for 10 Days, #40 TAB Prov:CHRISTEL LYON MD 02/20/24 Ondansetron HCl (Ondansetron Hydrochloride) 8 Mg Tab, 8 MG PO Q6HP PRN for 10 Days, #40 TAB Prov:CHRISTEL LYON MD 02/20/24 Current Medications Current Medications Medications (Trade) Dose Ordered Sig/Magdalene Route PRN Reason Start Time Stop Time Status Last Admin Pantoprazole Sodium (Protonix) 40 mg BID IV 08/22/24 22:00 08/23/24 09:35 Aspirin (Ecotrin Enteric Coated Tablet) 325 mg DAILY PO 08/23/24 10:00 08/23/24 16:47 DC 08/23/24 09:32 Clopidogrel Bisulfate (Plavix) 75 mg DAILY PO 08/23/24 10:00 08/23/24 16:47 DC 08/23/24 09:34 Metoprolol Tartrate (Lopressor Tablet) 50 mg BID PO 08/22/24 22:00 08/23/24 09:33 Quetiapine Fumarate (SEROquel TABLET) 100 mg HS PO 08/22/24 22:00 08/22/24 21:50 Atorvastatin Calcium (Lipitor) 40 mg HS PO 08/22/24 22:00 08/22/24 21:51 Fluoxetine HCl (PROzac CAPSULE) 40 mg DAILY PO 08/23/24 10:00 08/23/24 09:33 Hydrochlorothiazide (hydroCHLOROthiazide TABLET) 12.5 mg DAILY PO 08/23/24 10:00 08/23/24 09:35 Sucralfate (Carafate Susp) 1 gm QID@0600,1130,1700,2200 PO 08/23/24 17:00 08/23/24 17:24 Vital Signs Vital Signs Date Time Temp Pulse Resp B/P (MAP) Pulse Ox O2 Delivery O2 Flow Rate FiO2 08/23/24 17:00 99.0 70 18 127/81 (96) 92 99.0 08/23/24 08:00 Room Air* 0 21 Physical Exam General Appearance: Alert, Oriented X3, Cooperative, mild distress HEENT: Atraumatic, PERRLA Respiratory: Clear to auscultation, Normal air movement Cardiovascular: Regular rate, Normal S1, Normal S2, No murmurs Abdominal: Normal bowel sounds, Soft, No hepatospenomegaly, Other (C/O abdominal pain and nausea) Extremities: No clubbing, No cyanosis, No edema, Normal pulses, No tenderness/swelling Skin: No rashes, No breakdown, No significant lesion Neuro: Normal gait, Normal speech, Strength at 5/5 X4 ext, Normal tone Psych/Mental Status: Mental status NL, Mood NL Labs/Diagnostic Data Labs Test 08/23/24 10:20 08/23/24 05:36 08/22/24 22:00 08/22/24 07:45 Range/Units Hemoglobin 11.3 L 13.5-17.5 g/dL Hematocrit 34.5 L 41.0-53.0 % White Blood Count 4.7 4.4-10.8 10^3/uL Red Blood Count 3.94 L 4.5-5.90 10^6/uL Mean Corpuscular Volume 83.4 80.0-100.0 fL Mean Corpuscular Hemoglobin 27.8 L 28.0-32.0 pg Mean Corpuscular Hemoglobin Concent 33.3 32.0-36.0 g/dL Red Cell Distribution Width 20.6 H 11.8-14.3 % Platelet Count 155 140-450 10^3/uL Mean Platelet Volume 8.3 6.9-10.8 fL Neutrophils (%) (Auto) 66.8 37.0-80.0 % Lymphocytes (%) (Auto) 20.2 10.0-50.0 % Monocytes (%) (Auto) 8.8 0.0-12.0 % Eosinophils (%) (Auto) 3.4 0.0-7.0 % Basophils (%) (Auto) 0.8 0.0-2.0 % Neutrophils # (Auto) 3.2 1.6-8.6 10 ^3/uL Lymphocytes # (Auto) 1.0 0.4-5.4 10 ^3/uL Monocytes # (Auto) 0.4 0-1.3 10 ^3/uL Eosinophils # (Auto) 0.2 0-0.8 10 ^3/uL Basophils # (Auto) 0 0-0.2 10 ^3/uL Nucleated Red Blood Cells 0.1 % Sodium Level 138 136-145 mmol/L Potassium Level 3.8 3.5-5.1 mmol/L Chloride Level 103 98-107 mmol/L Carbon Dioxide Level 26 20-31 mmol/L Anion Gap 9 5-15 Blood Urea Nitrogen 9 9-23 mg/dL Creatinine 0.79 0.700-1.30 mg/dL Glomerular Filtration Rate Calc 103 >90 mL/min BUN/Creatinine Ratio 11.4 10.0-20.0 Serum Glucose 96 74-106 mg/dL Calcium Level 8.2 L 8.7-10.4 mg/dL Total Bilirubin 0.7 0.2-1.0 mg/dL Aspartate Amino Transferase (AST) 24 13-40 U/L Alanine Aminotransferase (ALT) 32 7-40 U/L Alkaline Phosphatase 90 46-116 U/L Total Protein 6.0 5.7-8.2 g/dL Albumin 3.8 3.2-4.8 g/dL Lipase 32 12-53 U/L Urine Color Light-yellow Yellow Urine Clarity Clear Clear Urine pH 6.0 5.0-9.0 Urine Specific [place] 1.018 1.001-1.035 Urine Protein Negative Negative Urine Ketones Negative Negative Urine Blood Negative Negative /uL Urine Nitrite Negative Negative Urine Bilirubin Negative Negative Urine Urobilinogen Normal Negative mg/dL Urine Leukocyte Esterase Negative Negative /uL Urine RBC None seen 0 - 3 /hpf Urine Microscopic WBC < 1 0-3 /HPF Urine Squamous Epithelial Cells None seen <5 /hpf Urine Bacteria None seen None Seen /hpf Urine Glucose Normal Normal mg/dL Troponin I High Sensitivity < 3 L </=54 ng/L CT SCAN ABD PELVIS IMPRESSION: 1. Small esophageal hiatal hernia. 2. Hepatomegaly with fatty infiltration. 3. Umbilical hernia containing fat. 4. Fecal retention in the colon consistent with constipation. 5. Colonic diverticulosis without acute diverticulitis. Problems(with codes): (1) Intractable abdominal pain (2) Nausea and vomiting Plan/Recommendation Plan Hold Plavix and aspirin today and tomorrow Protonix 40 mg IV q.12 hours Carafate suspension 1 g 4 times a day to treat suspected esophagitis gastritis NPO after midnight Schedule a possible endoscopy with biopsy on 08/24/2024 Further recommendations made after the above Plan discussed with: Patient, Other (Nurse) JAZZY NULL MD Aug 23, 2024 20:09
[2024-08-24] VITALS (9 sets, daily range): BP systolic 104–140; BP diastolic 62–88; PULSE 57–75; RESP 17–20; TEMP 97.2–98.3; O2SAT 93–98
--- NOTE | 2024-08-24 09:29 | DVHPN2 ---
Reviewed: Care Plan, H&P, Labs, Medications, Previous Orders, Radiology Changes from previous H/P or p: No Changes Eyes: No Pain, No Vision change, No Conjunctivae inflammation, No Eyelid inflammation, No Other, No Redness ENT: No Ear pain, No Ear discharge, No Nose pain, No Nose discharge, No Nose congestion, No Mouth pain, No Mouth swelling, No Throat pain, No Throat swelling, No Other Cardiovascular: No Chest Pain, No Palpitations, No Orthopnea, No Paroxysmal Noc. Dyspnea, No Edema, No Lt Headedness, No Other Respiratory: No Cough, No Dry, No Shortness of breath, No SOB with excertion, No Wheezing, No Hemoptysis, No Pleuritic Pain, No Sputum, No Other Gastrointestinal: Nausea, Vomiting, Abdominal Pain; No Diarrhea, No Constipation, No Melena, No Hematochezia, No Other Genitourinary: No Dysuria, No Frequency, No Incontinence, No Hematuria, No Retention, No Other Musculoskeletal: No other, No neck pain, No shoulder pain, No arm pain, No back pain, No hand pain, No leg pain, No foot pain Skin: No Rash, No Lesions, No Jaundice, No Bruising, No Other Objective Vitals Vital Signs Date Time Temp Pulse Resp B/P (MAP) Pulse Ox O2 Delivery O2 Flow Rate FiO2 08/24/24 08:53 98.1 68 19 129/88 (102) 98 98.1 08/23/24 20:10 Room Air* 0 21 Intake/Output Intake and Output 08/24/24 07:00 Intake Total 1000 ml Balance 1000 ml IV Total 1000 ml Medications Current Medications Medications Dose Ordered Sig/Magdalene Route Start Time Stop Time Status Last Admin Dose Admin Metoclopramide HCl 5 mg Q6HPRN PRN IV 08/22/24 07:45 08/22/24 17:38 5 MG Docusate Sodium 100 mg BIDPRN PRN PO 08/22/24 08:00 Acetaminophen 650 mg Q6HP PRN PO 08/22/24 08:00 Ondansetron HCl 4 mg Q4HPRN PRN IV 08/22/24 09:30 Sodium Chloride 1,000 ml @ 100 mls/hr Q10H IV 08/22/24 09:30 08/24/24 07:22 100 MLS/HR Lactulose 30 ml BIDPRN PRN PO 08/22/24 09:30 Pantoprazole Sodium 40 mg BID IV 08/22/24 22:00 08/24/24 08:50 40 MG Gabapentin 300 mg TID PO 08/22/24 14:00 08/24/24 05:29 300 MG Acetaminophen/ Hydrocodone Bitart 1 tab TIDPRN PRN PO 08/22/24 11:15 08/24/24 08:51 1 TAB Metoprolol Tartrate 50 mg BID PO 08/22/24 22:00 08/24/24 08:52 50 MG Quetiapine Fumarate 100 mg HS PO 08/22/24 22:00 08/23/24 22:09 100 MG Atorvastatin Calcium 40 mg HS PO 08/22/24 22:00 08/23/24 22:08 40 MG Cholecalciferol 2,000 unit DAILY PO 08/22/24 14:29 08/24/24 08:52 2,000 UNIT Fluoxetine HCl 40 mg DAILY PO 08/23/24 10:00 08/24/24 08:52 40 MG Hydrochlorothiazide 12.5 mg DAILY PO 08/23/24 10:00 08/24/24 08:50 12.5 MG Sucralfate 1 gm QID@0600,1130,1700,2200 PO 08/23/24 17:00 08/24/24 05:30 1 GM Laboratory Results Laboratory Tests 08/23/24 05:36 08/23/24 10:20 Urinalysis Test 08/22/24 22:00 Urine Color Light-yellow (Yellow) Urine Clarity Clear (Clear) Urine pH 6.0 (5.0-9.0) Urine Specific [place] 1.018 (1.001-1.035) Urine Protein Negative (Negative) Urine Ketones Negative (Negative) Urine Blood Negative /uL (Negative) Urine Nitrite Negative (Negative) Urine Bilirubin Negative (Negative) Urine Urobilinogen Normal mg/dL (Negative) Urine Leukocyte Esterase Negative /uL (Negative) Urine RBC None seen /hpf (0 - 3) Urine Microscopic WBC < 1 /HPF (0-3) Urine Squamous Epithelial Cells None seen /hpf (<5) Urine Bacteria None seen /hpf (None Seen) Urine Glucose Normal mg/dL (Normal) Labs and/or images reviewed: Labs reviewed by me, Image(s) reviewed by me Assessment/Plan Assessment/Plan Acute abdominal pain: Pantoprazole Carafate consult for GI Dr.N Willingham History of esophagitis Hypertension Hypercholesterolemia Bipolar History of brain aneurysm status post clipping in [facility] Schizophrenia Chronic current smoker EGD today: Holding aspirin and Plavix Plan discussed with: Patient My Orders Orders - JOSSE DIAZ MD Procedure Category Date Status Time * [facility] Investigator Cash Shortage CONS 08/23/24 Transmitted 15:35 Date of Service: Aug 24, 2024 Billing Provider: JOSSE DIAZ MD Common Visit Codes: [id number] INP/OBS CARE(HIGH) JOSSE DIAZ MD Aug 24, 2024 09:29
[2024-08-24] MEDS ORDERED: SODIUM CHLORIDE LOCK 10 ML ONE (09:38)
[2024-08-24] MEDS: LIDOCAINE VISCOUS 2% 15ML UD ONE (17:30)
[2024-08-24] MEDS: fentaNYL CITRATE 100 MCG/2 ML VL ONE (17:30)
[2024-08-24] MEDS: diphenhdrAMINE HCL 50 MG/1 ML VL ONE (17:30)
[2024-08-24] MEDS: MIDAZOLAM HCL 5 MG/ML-1ML VIAL ONE (17:30)
--- NOTE | 2024-08-24 17:45 | DVHOP2 ---
Operative Report DATE OF OPERATION: 08/24/24 PROCEDURE: Upper Endoscopy with biopsy. PREOPERATIVE INDICATION: The patient is a 58 -year-old male undergoing endoscopy for atypical chest pain nausea vomiting coffee-ground emesis POSTOPERATIVE DIAGNOSES: 1. 2 cm sliding-type hiatal hernia with severe grade C erosive esophagitis with esophageal ulcers extending into the distal 8-10 cm of the esophagus from which biopsies were obtained 2. Mild to moderate antral gastritis with involvement of the pyloric channel pylorospasm and superficial pyloric channel ulceration from which biopsies were obtained 3. Otherwise normal examination up to the 2nd and 3rd part of the duodenum with no active bleeding and good bile drainage PROCEDURE PERFORMED BY: Jazzy Willingham GI NURSE: Alicia SCOPE: Olympus videoendoscope. ASA CLASS: 3 PREOPERATIVE MEDICATIONS: Versed 3 mg, Fentanyl 100 mcg, Benadryl 50 mg I administered moderate sedation throughout this _10_ minutes procedure. An independent trained observer pushed medications at my direction, and monitored the patient's level of consciousness and physiological status throughout. PROCEDURE IN DETAIL: After obtaining an informed consent, the patient was placed on left lateral decubitus position. The patient was then sedated with the above medications. A bite block was placed between his teeth. The endoscope was then passed through the oropharynx, into the esophagus, and through the stomach and pylorus up to the second and third part of the duodenum. The endoscope was then withdrawn. The 2nd and 3rd part of the duodenum and the duodenal bulb were normal. Patient had pylorospasm There was pre-pyloric antral gastritis and some superficial pyloric channel inflammation and ulceration. On retroflexion the fundus cardia and angularis were normal. Duodenal and gastric biopsies were obtained. The endoscope was then withdrawn into the distal esophagus where he had a 2-3 cm sliding-type hiatal hernia with severe grade C erosive esophagitis There were esophageal ulcers extending into the distal 8-10 cm of the esophagus from which biopsies were obtained. The remaining proximal esophagus and oropharynx were unremarkable. The patient tolerated the procedure well without difficulty. COMPLICATIONS : None SPECIMENS: Duodenal biopsies Gastric biopsies Esophageal biopsies DISPOSITION: Transfer back to the floor Stable PLAN: 1. Await for biopsy result 2. Will place pt on Protonix 40 mg bid IV 3. Carafate suspension 1 g p.o. 4 times a day 4. Full liquid diet advance to soft mechanical 5. Lifestyle and dietary modifications for GERD 6. Outpatient follow up with [place] to review results discuss further management including trial of Voquenza if symptoms persist 7. Resume aspirin and Plavix in 24-48 hours JAZZY WILLINGHAM MD Aug 24, 2024 17:45
[2024-08-25] VITALS (7 sets, daily range): BP systolic 111–142; BP diastolic 70–94; PULSE 56–76; RESP 17–21; TEMP 97–98.3; O2SAT 93–96
--- NOTE | 2024-08-25 09:32 | DVHPN2 ---
Reviewed: Care Plan, H&P, Labs, Medications, Previous Orders, Radiology Changes from previous H/P or p: No Changes Eyes: No Pain, No Vision change, No Conjunctivae inflammation, No Eyelid inflammation, No Other, No Redness ENT: No Ear pain, No Ear discharge, No Nose pain, No Nose discharge, No Nose congestion, No Mouth pain, No Mouth swelling, No Throat pain, No Throat swelling, No Other Cardiovascular: No Chest Pain, No Palpitations, No Orthopnea, No Paroxysmal Noc. Dyspnea, No Edema, No Lt Headedness, No Other Respiratory: No Cough, No Dry, No Shortness of breath, No SOB with excertion, No Wheezing, No Hemoptysis, No Pleuritic Pain, No Sputum, No Other Gastrointestinal: Nausea, Vomiting, Abdominal Pain; No Diarrhea, No Constipation, No Melena, No Hematochezia, No Other Genitourinary: No Dysuria, No Frequency, No Incontinence, No Hematuria, No Retention, No Other Musculoskeletal: No other, No neck pain, No shoulder pain, No arm pain, No back pain, No hand pain, No leg pain, No foot pain Skin: No Rash, No Lesions, No Jaundice, No Bruising, No Other Objective Vitals Vital Signs Date Time Temp Pulse Resp B/P (MAP) Pulse Ox O2 Delivery O2 Flow Rate FiO2 08/25/24 08:39 98.0 64 18 133/94 (107) 93 98.0 08/25/24 08:15 Room Air* 0 21 Intake/Output Intake and Output 08/25/24 07:00 Intake Total 3700 ml Output Total 1400 ml Balance 2300 ml Intake Oral 800 ml IV Total 2900 ml Output Urine Total 1400 ml Medications Current Medications Medications Dose Ordered Sig/Magdalene Route Start Time Stop Time Status Last Admin Dose Admin Metoclopramide HCl 5 mg Q6HPRN PRN IV 08/22/24 07:45 08/25/24 03:58 5 MG Docusate Sodium 100 mg BIDPRN PRN PO 08/22/24 08:00 Acetaminophen 650 mg Q6HP PRN PO 08/22/24 08:00 Ondansetron HCl 4 mg Q4HPRN PRN IV 08/22/24 09:30 Sodium Chloride 1,000 ml @ 100 mls/hr Q10H IV 08/22/24 09:30 08/24/24 21:51 100 MLS/HR Lactulose 30 ml BIDPRN PRN PO 08/22/24 09:30 Pantoprazole Sodium 40 mg BID IV 08/22/24 22:00 08/24/24 21:29 40 MG Gabapentin 300 mg TID PO 08/22/24 14:00 08/25/24 05:36 300 MG Acetaminophen/ Hydrocodone Bitart 1 tab TIDPRN PRN PO 08/22/24 11:15 08/25/24 03:58 1 TAB Metoprolol Tartrate 50 mg BID PO 08/22/24 22:00 08/24/24 21:29 50 MG Quetiapine Fumarate 100 mg HS PO 08/22/24 22:00 08/24/24 21:34 100 MG Atorvastatin Calcium 40 mg HS PO 08/22/24 22:00 08/24/24 21:27 40 MG Cholecalciferol 2,000 unit DAILY PO 08/22/24 14:29 08/24/24 08:52 2,000 UNIT Fluoxetine HCl 40 mg DAILY PO 08/23/24 10:00 08/24/24 08:52 40 MG Hydrochlorothiazide 12.5 mg DAILY PO 08/23/24 10:00 08/24/24 08:50 12.5 MG Sucralfate 1 gm QID@0600,1130,1700,2200 PO 08/23/24 17:00 08/25/24 05:36 1 GM Laboratory Results Laboratory Tests 08/23/24 05:36 08/23/24 10:20 Urinalysis Test 08/22/24 22:00 Urine Color Light-yellow (Yellow) Urine Clarity Clear (Clear) Urine pH 6.0 (5.0-9.0) Urine Specific [place] 1.018 (1.001-1.035) Urine Protein Negative (Negative) Urine Ketones Negative (Negative) Urine Blood Negative /uL (Negative) Urine Nitrite Negative (Negative) Urine Bilirubin Negative (Negative) Urine Urobilinogen Normal mg/dL (Negative) Urine Leukocyte Esterase Negative /uL (Negative) Urine RBC None seen /hpf (0 - 3) Urine Microscopic WBC < 1 /HPF (0-3) Urine Squamous Epithelial Cells None seen /hpf (<5) Urine Bacteria None seen /hpf (None Seen) Urine Glucose Normal mg/dL (Normal) Labs and/or images reviewed: Labs reviewed by me, Image(s) reviewed by me Assessment/Plan Assessment/Plan Acute abdominal pain: Pantoprazole Carafate consult for GI Dr.N Willingham EGD by Dr Glenis Willingham 08-24-24: Severe grade C erosive esophagitis with esophageal ulcers extending into the distal 8-10 cm of the esophagus from which biopsies were obtained Mild to moderate antral gastritis with involvement of the pyloric channel pylorospasm and superficial pyloric channel ulceration from which biopsies were obtained continue pantoprazole and Carafate History of esophagitis Hypertension Hypercholesterolemia Bipolar History of brain aneurysm status post clipping in [facility] History of C-spine surgery two years ago Schizophrenia Chronic current smoker Holding Aspirin and Plavix Patient lives in the Room and Board Physical therapy ordered Plan discussed with: Patient Date of Service: Aug 25, 2024 Billing Provider: JOSSE DIAZ MD Common Visit Codes: [id number] INP/OBS CARE(HIGH) JOSSE DIAZ MD Aug 25, 2024 09:32
[2024-08-25] MEDS: CLOPIDOGREL BISULFATE 75 MG TAB PO SCH (12:53)
[2024-08-25] MEDS: ASPirin 81 mg TAB PO SCH (12:53)
--- NOTE | 2024-08-25 23:04 | DVHPN2 ---
Progress Note - Dictate Date Seen: Aug 25, 2024 Medical Necessity Reason Pt with a Central, PICC or Fol: No Subjective No new complaints Tolerating full liquid diet vital signs Vital Sign Date Time Temp Pulse Resp B/P (MAP) Pulse Ox O2 Delivery O2 Flow Rate FiO2 08/25/24 21:46 62 138/81 08/25/24 21:00 97.7 18 96 97.7 08/25/24 08:15 Room Air* 0 21 Total Intake and Output 08/24/24 08/24/24 08/25/24 15:00 23:00 07:00 Intake Total 1000 ml 1000 ml 1700 ml Output Total 1400 ml Balance 1000 ml 1000 ml 300 ml medications Current Medications Medications Dose Ordered Sig/Magdalene Route Start Time Stop Time Status Last Admin Dose Admin Metoclopramide HCl 5 mg Q6HPRN PRN IV 08/22/24 07:45 08/25/24 03:58 5 MG Docusate Sodium 100 mg BIDPRN PRN PO 08/22/24 08:00 Acetaminophen 650 mg Q6HP PRN PO 08/22/24 08:00 Ondansetron HCl 4 mg Q4HPRN PRN IV 08/22/24 09:30 Sodium Chloride 1,000 ml @ 100 mls/hr Q10H IV 08/22/24 09:30 08/25/24 09:23 100 MLS/HR Lactulose 30 ml BIDPRN PRN PO 08/22/24 09:30 Pantoprazole Sodium 40 mg BID IV 08/22/24 22:00 08/25/24 21:39 40 MG Gabapentin 300 mg TID PO 08/22/24 14:00 08/25/24 21:39 300 MG Acetaminophen/ Hydrocodone Bitart 1 tab TIDPRN PRN PO 08/22/24 11:15 08/25/24 14:48 1 TAB Metoprolol Tartrate 50 mg BID PO 08/22/24 22:00 08/25/24 21:46 50 MG Quetiapine Fumarate 100 mg HS PO 08/22/24 22:00 08/25/24 21:39 100 MG Atorvastatin Calcium 40 mg HS PO 08/22/24 22:00 08/25/24 21:39 40 MG Cholecalciferol 2,000 unit DAILY PO 08/22/24 14:29 08/25/24 09:21 2,000 UNIT Fluoxetine HCl 40 mg DAILY PO 08/23/24 10:00 08/25/24 09:22 40 MG Hydrochlorothiazide 12.5 mg DAILY PO 08/23/24 10:00 08/25/24 09:23 12.5 MG Sucralfate 1 gm QID@0600,1130,1700,2200 PO 08/23/24 17:00 08/25/24 21:39 1 GM Aspirin 81 mg DAILY PO 08/25/24 10:00 08/25/24 12:53 81 MG Clopidogrel Bisulfate 75 mg DAILY PO 08/25/24 10:00 08/25/24 12:53 75 MG objective General Appearance: Alert, Oriented X3, Cooperative, mild distress HEENT: Atraumatic, PERRLA Respiratory: Clear to auscultation, Normal air movement Cardiovascular: Regular rate, Normal S1, Normal S2, No murmurs Abdominal: Normal bowel sounds, Soft, No hepatospenomegaly, Other (C/O abdominal pain and nausea) Extremities: No clubbing, No cyanosis, No edema, Normal pulses, No tenderness/swelling Skin: No rashes, No breakdown, No significant lesion Neuro: Normal gait, Normal speech, Strength at 5/5 X4 ext, Normal tone Psych/Mental Status: Mental status NL, Mood NL laboratory and microbiology Laboratory Tests 08/23/24 10:20 08/23/24 05:36 Test 08/23/24 05:36 Range/Units Serum Glucose 96 74-106 mg/dL Problems(with codes): (1) Hiatal hernia with gastroesophageal reflux disease and esophagitis (2) Intractable abdominal pain (3) Nausea and vomiting Prognosis Plan Advance to soft mechanical diet Continue PPI and Carafate while in the hospital and also upon discharge Patient can resume his Plavix and aspirin on 08/26/2024 He should avoid NSAIDs spicy foods and continue lifestyle modifications for GERD Plan discussed with: Patient JAZZY NULL MD Aug 25, 2024 23:04
[2024-08-26] VITALS (8 sets, daily range): BP systolic 107–139; BP diastolic 62–90; PULSE 58–75; RESP 16–18; TEMP 97.7–98.1; O2SAT 91–96
--- NOTE | 2024-08-26 10:44 | DVHPN2 ---
Reviewed: Care Plan, H&P, Labs, Medications, Previous Orders, Radiology Changes from previous H/P or p: No Changes Eyes: No Pain, No Vision change, No Conjunctivae inflammation, No Eyelid inflammation, No Other, No Redness ENT: No Ear pain, No Ear discharge, No Nose pain, No Nose discharge, No Nose congestion, No Mouth pain, No Mouth swelling, No Throat pain, No Throat swelling, No Other Cardiovascular: No Chest Pain, No Palpitations, No Orthopnea, No Paroxysmal Noc. Dyspnea, No Edema, No Lt Headedness, No Other Respiratory: No Cough, No Dry, No Shortness of breath, No SOB with excertion, No Wheezing, No Hemoptysis, No Pleuritic Pain, No Sputum, No Other Gastrointestinal: Nausea, Vomiting, Abdominal Pain; No Diarrhea, No Constipation, No Melena, No Hematochezia, No Other Genitourinary: No Dysuria, No Frequency, No Incontinence, No Hematuria, No Retention, No Other Musculoskeletal: No other, No neck pain, No shoulder pain, No arm pain, No back pain, No hand pain, No leg pain, No foot pain Skin: No Rash, No Lesions, No Jaundice, No Bruising, No Other Objective Vitals Vital Signs Date Time Temp Pulse Resp B/P (MAP) Pulse Ox O2 Delivery O2 Flow Rate FiO2 08/26/24 09:43 123/74 08/26/24 09:43 75 08/26/24 09:00 97.7 17 91 97.7 08/25/24 20:00 Room Air* 0 21 Intake/Output Intake and Output 08/26/24 07:00 Intake Total 4300 ml Output Total 5010 ml Balance -710 ml Intake Oral 3300 ml IV Total 1000 ml Output Urine Total 5010 ml Medications Current Medications Medications Dose Ordered Sig/Magdalene Route Start Time Stop Time Status Last Admin Dose Admin Metoclopramide HCl 5 mg Q6HPRN PRN IV 08/22/24 07:45 08/25/24 03:58 5 MG Docusate Sodium 100 mg BIDPRN PRN PO 08/22/24 08:00 Acetaminophen 650 mg Q6HP PRN PO 08/22/24 08:00 Ondansetron HCl 4 mg Q4HPRN PRN IV 08/22/24 09:30 Sodium Chloride 1,000 ml @ 100 mls/hr Q10H IV 08/22/24 09:30 08/26/24 05:19 100 MLS/HR Lactulose 30 ml BIDPRN PRN PO 08/22/24 09:30 Pantoprazole Sodium 40 mg BID IV 08/22/24 22:00 08/26/24 09:42 40 MG Gabapentin 300 mg TID PO 08/22/24 14:00 08/26/24 05:19 300 MG Acetaminophen/ Hydrocodone Bitart 1 tab TIDPRN PRN PO 08/22/24 11:15 08/26/24 09:55 1 TAB Metoprolol Tartrate 50 mg BID PO 08/22/24 22:00 08/26/24 09:43 50 MG Quetiapine Fumarate 100 mg HS PO 08/22/24 22:00 08/25/24 21:39 100 MG Atorvastatin Calcium 40 mg HS PO 08/22/24 22:00 08/25/24 21:39 40 MG Cholecalciferol 2,000 unit DAILY PO 08/22/24 14:29 08/26/24 09:44 2,000 UNIT Fluoxetine HCl 40 mg DAILY PO 08/23/24 10:00 08/26/24 09:42 40 MG Hydrochlorothiazide 12.5 mg DAILY PO 08/23/24 10:00 08/26/24 09:43 12.5 MG Sucralfate 1 gm QID@0600,1130,1700,2200 PO 08/23/24 17:00 08/26/24 05:19 1 GM Aspirin 81 mg DAILY PO 08/25/24 10:00 08/26/24 09:44 81 MG Clopidogrel Bisulfate 75 mg DAILY PO 08/25/24 10:00 08/26/24 09:43 75 MG Laboratory Results Laboratory Tests 08/23/24 05:36 08/23/24 10:20 Urinalysis Test 08/22/24 22:00 Urine Color Light-yellow (Yellow) Urine Clarity Clear (Clear) Urine pH 6.0 (5.0-9.0) Urine Specific [place] 1.018 (1.001-1.035) Urine Protein Negative (Negative) Urine Ketones Negative (Negative) Urine Blood Negative /uL (Negative) Urine Nitrite Negative (Negative) Urine Bilirubin Negative (Negative) Urine Urobilinogen Normal mg/dL (Negative) Urine Leukocyte Esterase Negative /uL (Negative) Urine RBC None seen /hpf (0 - 3) Urine Microscopic WBC < 1 /HPF (0-3) Urine Squamous Epithelial Cells None seen /hpf (<5) Urine Bacteria None seen /hpf (None Seen) Urine Glucose Normal mg/dL (Normal) Labs and/or images reviewed: Labs reviewed by me, Image(s) reviewed by me Assessment/Plan Assessment/Plan Acute abdominal pain: Pantoprazole Carafate consult for GI Dr.N Willingham EGD by Dr Glenis Willingham 08-24-24: Severe grade C erosive esophagitis with esophageal ulcers extending into the distal 8-10 cm of the esophagus from which biopsies were obtained Mild to moderate antral gastritis with involvement of the pyloric channel pylorospasm and superficial pyloric channel ulceration from which biopsies were obtained continue pantoprazole and Carafate History of esophagitis Hypertension Hypercholesterolemia Bipolar History of brain aneurysm status post clipping in [facility] History of C-spine surgery two years ago Schizophrenia Chronic current smoker Resume aspirin and Plavix Patient lives in the Room and Board Physical therapy ordered Plan discussed with: Patient Date of Service: Aug 26, 2024 Billing Provider: JOSSE DIAZ MD Common Visit Codes: [id number] INP/OBS CARE(HIGH) JOSSE DIAZ MD Aug 26, 2024 10:44
--- NOTE | 2024-08-26 10:50 | DVHDS2 ---
Discharge Summary Date of Admission Aug 22, 2024 at 07:56 Date of Discharge: Aug 26, 2024 Admitting Diagnosis Acute abdominal pain Wounds: EGD Labs/Diagnostic Data: Laboratory Results Test 08/23/24 10:20 08/23/24 05:36 08/22/24 22:00 08/22/24 07:45 Hemoglobin 11.3 g/dL (13.5-17.5) Hematocrit 34.5 % (41.0-53.0) White Blood Count 4.7 10^3/uL (4.4-10.8) Red Blood Count 3.94 10^6/uL (4.5-5.90) Mean Corpuscular Volume 83.4 fL (80.0-100.0) Mean Corpuscular Hemoglobin 27.8 pg (28.0-32.0) Mean Corpuscular Hemoglobin Concent 33.3 g/dL (32.0-36.0) Red Cell Distribution Width 20.6 % (11.8-14.3) Platelet Count 155 10^3/uL (140-450) Mean Platelet Volume 8.3 fL (6.9-10.8) Neutrophils (%) (Auto) 66.8 % (37.0-80.0) Lymphocytes (%) (Auto) 20.2 % (10.0-50.0) Monocytes (%) (Auto) 8.8 % (0.0-12.0) Eosinophils (%) (Auto) 3.4 % (0.0-7.0) Basophils (%) (Auto) 0.8 % (0.0-2.0) Neutrophils # (Auto) 3.2 10 ^3/uL (1.6-8.6) Lymphocytes # (Auto) 1.0 10 ^3/uL (0.4-5.4) Monocytes # (Auto) 0.4 10 ^3/uL (0-1.3) Eosinophils # (Auto) 0.2 10 ^3/uL (0-0.8) Basophils # (Auto) 0 10 ^3/uL (0-0.2) Nucleated Red Blood Cells 0.1 % Sodium Level 138 mmol/L (136-145) Potassium Level 3.8 mmol/L (3.5-5.1) Chloride Level 103 mmol/L (98-107) Carbon Dioxide Level 26 mmol/L (20-31) Anion Gap 9 (5-15) Blood Urea Nitrogen 9 mg/dL (9-23) Creatinine 0.79 mg/dL (0.700-1.30) Glomerular Filtration Rate Calc 103 mL/min (>90) BUN/Creatinine Ratio 11.4 (10.0-20.0) Serum Glucose 96 mg/dL (74-106) Calcium Level 8.2 mg/dL (8.7-10.4) Total Bilirubin 0.7 mg/dL (0.2-1.0) Aspartate Amino Transferase (AST) 24 U/L (13-40) Alanine Aminotransferase (ALT) 32 U/L (7-40) Alkaline Phosphatase 90 U/L (46-116) Total Protein 6.0 g/dL (5.7-8.2) Albumin 3.8 g/dL (3.2-4.8) Lipase 32 U/L (12-53) Urine Color Light-yellow (Yellow) Urine Clarity Clear (Clear) Urine pH 6.0 (5.0-9.0) Urine Specific [place] 1.018 (1.001-1.035) Urine Protein Negative (Negative) Urine Ketones Negative (Negative) Urine Blood Negative /uL (Negative) Urine Nitrite Negative (Negative) Urine Bilirubin Negative (Negative) Urine Urobilinogen Normal mg/dL (Negative) Urine Leukocyte Esterase Negative /uL (Negative) Urine RBC None seen /hpf (0 - 3) Urine Microscopic WBC < 1 /HPF (0-3) Urine Squamous Epithelial Cells None seen /hpf (<5) Urine Bacteria None seen /hpf (None Seen) Urine Glucose Normal mg/dL (Normal) Troponin I High Sensitivity < 3 ng/L (</=54) Other Laboratory Tests 08/23/24 10:20 08/23/24 05:36 Brief Hx & Hospital Course: 58-year-old male with a history of erosive esophagitis hypotension hypercholesterolemia bipolar history of brain aneurysm status post clipping in [facility] history of C spine surgery two years ago schizophrenia chronic current smoker on aspirin and Plavix came in for severe abdominal pain found to have grade C severe erosive esophagitis by EGD by Dr. Glenis Willingham occupying the entire distal 8-10 cm of the esophagus biopsies were performed placed on pantoprazole and Carafate. [facility] to receive pantoprazole 40 mg IV q.12h for one month along with the Carafate . The plan is acceptable to the patient Acute abdominal pain: Pantoprazole Carafate consult for GI Dr.N Willingham Consults/Reason for consult GI Dr. Glenis Willingham Operations or Procedures EGD Condition at Discharge: Fair Final Diagnosis/Problems List Acute abdominal pain: Pantoprazole Carafate consult for GI Dr.N Willingham EGD by Dr Glenis Willingham 08-24-24: Severe grade C erosive esophagitis with esophageal ulcers extending into the distal 8-10 cm of the esophagus from which biopsies were obtained Mild to moderate antral gastritis with involvement of the pyloric channel pylorospasm and superficial pyloric channel ulceration from which biopsies were obtained continue pantoprazole and Carafate History of esophagitis Hypertension Hypercholesterolemia Bipolar History of brain aneurysm status post clipping in [facility] History of C-spine surgery two years ago Schizophrenia Chronic current smoker Resume aspirin and Plavix Discharge Disposition: Longterm Facility Discharge Instruct/Medications Diet: Cardiac 2g Na,low cholest Activity: Light activity Follow Up/Referral: Follow up with the [facility] doctor Medications: see list Pantoprazole 40 mg IV q.12h for one month 39 (Time taken for discharge summary 39 minutes) Discharge Statement: "Patient was advised to return to the ER or call 911 if any headaches, dizziness, shortness of breath, chest pain, abdominal pain, bleeding, fevers, or worsening of medical condition. Patient was counseled about treatment plan, medications, possible side effects, patientverbalized understanding. All questions were answered to the best of my ability. This discharge took greater then 30 minutes in planning, reviewing documentation, counseling the patient, and discussing with other team members." ASSESSMENT ASSESSMENT Hospital Course Improved Assessment Acute abdominal pain: Pantoprazole Carafate consult for GI Dr.N Willingham EGD by Dr Glenis Willingham 08-24-24: Severe grade C erosive esophagitis with esophageal ulcers extending into the distal 8-10 cm of the esophagus from which biopsies were obtained Mild to moderate antral gastritis with involvement of the pyloric channel pylorospasm and superficial pyloric channel ulceration from which biopsies were obtained continue pantoprazole and Carafate History of esophagitis Hypertension Hypercholesterolemia Bipolar History of brain aneurysm status post clipping in [facility] [place] History of C-spine surgery two years ago Schizophrenia Chronic current smoker Resume aspirin and Plavix Date of Service: Aug 26, 2024 Billing Provider: JOSSE DIAZ MD Common Visit Codes: [id number] DISCH DAY >30min JOSSE DIAZ MD Aug 26, 2024 10:50
--- NOTE | 2024-08-26 11:54 | DVHPN2 ---
Progress Note - Dictate Date Seen: Aug 26, 2024 Medical Necessity Reason Pt with a Central, PICC or Fol: No Subjective No new complaints Tolerating soft mechanical diet Patient stated because he had Plavix due to his stents his doctor had taken him off the Prilosec and put him on Pepcid which does not appear to be strong enough to control his GERD symptoms vital signs Vital Sign Date Time Temp Pulse Resp B/P (MAP) Pulse Ox O2 Delivery O2 Flow Rate FiO2 08/26/24 10:43 70 124/56 08/26/24 09:00 97.7 17 91 97.7 08/25/24 20:00 Room Air* 0 21 Total Intake and Output 08/25/24 08/25/24 08/26/24 15:00 23:00 07:00 Intake Total 2100 ml 2200 ml Output Total 3860 ml 1150 ml Balance -1760 ml 1050 ml medications Current Medications Medications Dose Ordered Sig/Magdalene Route Start Time Stop Time Status Last Admin Dose Admin Metoclopramide HCl 5 mg Q6HPRN PRN IV 08/22/24 07:45 08/25/24 03:58 5 MG Docusate Sodium 100 mg BIDPRN PRN PO 08/22/24 08:00 Acetaminophen 650 mg Q6HP PRN PO 08/22/24 08:00 Ondansetron HCl 4 mg Q4HPRN PRN IV 08/22/24 09:30 Sodium Chloride 1,000 ml @ 100 mls/hr Q10H IV 08/22/24 09:30 08/26/24 05:19 100 MLS/HR Lactulose 30 ml BIDPRN PRN PO 08/22/24 09:30 Pantoprazole Sodium 40 mg BID IV 08/22/24 22:00 08/26/24 09:42 40 MG Gabapentin 300 mg TID PO 08/22/24 14:00 08/26/24 05:19 300 MG Acetaminophen/ Hydrocodone Bitart 1 tab TIDPRN PRN PO 08/22/24 11:15 08/26/24 09:55 1 TAB Metoprolol Tartrate 50 mg BID PO 08/22/24 22:00 08/26/24 09:43 50 MG Quetiapine Fumarate 100 mg HS PO 08/22/24 22:00 08/25/24 21:39 100 MG Atorvastatin Calcium 40 mg HS PO 08/22/24 22:00 08/25/24 21:39 40 MG Cholecalciferol 2,000 unit DAILY PO 08/22/24 14:29 08/26/24 09:44 2,000 UNIT Fluoxetine HCl 40 mg DAILY PO 08/23/24 10:00 08/26/24 09:42 40 MG Hydrochlorothiazide 12.5 mg DAILY PO 08/23/24 10:00 08/26/24 09:43 12.5 MG Sucralfate 1 gm QID@0600,1130,1700,2200 PO 08/23/24 17:00 08/26/24 11:16 1 GM Aspirin 81 mg DAILY PO 08/25/24 10:00 08/26/24 09:44 81 MG Clopidogrel Bisulfate 75 mg DAILY PO 08/25/24 10:00 08/26/24 09:43 75 MG objective General Appearance: Alert, Oriented X3, Cooperative, mild distress HEENT: Atraumatic, PERRLA Respiratory: Clear to auscultation, Normal air movement Cardiovascular: Regular rate, Normal S1, Normal S2, No murmurs Abdominal: Normal bowel sounds, Soft, No hepatospenomegaly, Other (C/O abdominal pain and nausea) Extremities: No clubbing, No cyanosis, No edema, Normal pulses, No tenderness/swelling Skin: No rashes, No breakdown, No significant lesion Neuro: Normal gait, Normal speech, Strength at 5/5 X4 ext, Normal tone Psych/Mental Status: Mental status NL, Mood NL laboratory and microbiology Laboratory Tests 08/23/24 10:20 08/23/24 05:36 Test 08/23/24 05:36 Range/Units Serum Glucose 96 74-106 mg/dL Problems(with codes): (1) Hiatal hernia with gastroesophageal reflux disease and esophagitis (2) Intractable abdominal pain (3) Nausea and vomiting Prognosis Plan Protonix 40 mg p.o. twice a day, this medication is safer to use along with Plavix or there could be consideration for Dexilant 60 mg p.o. daily Lifestyle and dietary modifications for GERD ; Carafate suspension 1 g p.o. twice a day Outpatient follow up with me in 4-6 weeks or as needed Discharge planning is in order, patient is going to [facility] for IV antibiotics Plan discussed with: Patient JAZZY NULL MD Aug 26, 2024 11:54
[2024-08-26 12:01] LABS: COVID19 ANTIGEN SOFIA FIA NEGATIVE (NEGATIVE)
[2024-08-27 01:00] VITALS: BP 115/72; PULSE 68; RESP 18; TEMP 98; O2SAT 97
[2024-08-27 05:08] VITALS: BP 119/76; PULSE 70; RESP 18; TEMP 97.9; O2SAT 96
[2024-08-27 09:00] VITALS: BP 125/72; PULSE 68; RESP 16; TEMP 97.9; O2SAT 96
--- NOTE | 2024-08-27 10:27 | DVHPN2 ---
Reviewed: Care Plan, H&P, Labs, Medications, Previous Orders, Radiology Changes from previous H/P or p: No Changes Eyes: No Pain, No Vision change, No Conjunctivae inflammation, No Eyelid inflammation, No Other, No Redness ENT: No Ear pain, No Ear discharge, No Nose pain, No Nose discharge, No Nose congestion, No Mouth pain, No Mouth swelling, No Throat pain, No Throat swelling, No Other Cardiovascular: No Chest Pain, No Palpitations, No Orthopnea, No Paroxysmal Noc. Dyspnea, No Edema, No Lt Headedness, No Other Respiratory: No Cough, No Dry, No Shortness of breath, No SOB with excertion, No Wheezing, No Hemoptysis, No Pleuritic Pain, No Sputum, No Other Gastrointestinal: Nausea, Vomiting, Abdominal Pain; No Diarrhea, No Constipation, No Melena, No Hematochezia, No Other Genitourinary: No Dysuria, No Frequency, No Incontinence, No Hematuria, No Retention, No Other Musculoskeletal: No other, No neck pain, No shoulder pain, No arm pain, No back pain, No hand pain, No leg pain, No foot pain Skin: No Rash, No Lesions, No Jaundice, No Bruising, No Other Objective Vitals Vital Signs Date Time Temp Pulse Resp B/P (MAP) Pulse Ox O2 Delivery O2 Flow Rate FiO2 08/27/24 09:00 97.9 68 16 125/72 (89) 96 97.9 08/26/24 20:00 Room Air* 0 21 Intake/Output Intake and Output 08/27/24 07:00 Intake Total 2000 ml Output Total 3151 ml Balance -1151 ml Intake Oral 2000 ml Output Urine Total 3150 ml Stool Total 1 ml Medications Current Medications Medications Dose Ordered Sig/Magdalene Route Start Time Stop Time Status Last Admin Dose Admin Metoclopramide HCl 5 mg Q6HPRN PRN IV 08/22/24 07:45 08/25/24 03:58 5 MG Docusate Sodium 100 mg BIDPRN PRN PO 08/22/24 08:00 Acetaminophen 650 mg Q6HP PRN PO 08/22/24 08:00 Ondansetron HCl 4 mg Q4HPRN PRN IV 08/22/24 09:30 Sodium Chloride 1,000 ml @ 100 mls/hr Q10H IV 08/22/24 09:30 08/26/24 05:19 100 MLS/HR Lactulose 30 ml BIDPRN PRN PO 08/22/24 09:30 Pantoprazole Sodium 40 mg BID IV 08/22/24 22:00 08/27/24 08:48 40 MG Gabapentin 300 mg TID PO 08/22/24 14:00 08/27/24 05:25 300 MG Acetaminophen/ Hydrocodone Bitart 1 tab TIDPRN PRN PO 08/22/24 11:15 08/26/24 21:58 1 TAB Metoprolol Tartrate 50 mg BID PO 08/22/24 22:00 08/27/24 08:50 50 MG Quetiapine Fumarate 100 mg HS PO 08/22/24 22:00 08/26/24 20:56 100 MG Atorvastatin Calcium 40 mg HS PO 08/22/24 22:00 08/26/24 20:56 40 MG Cholecalciferol 2,000 unit DAILY PO 08/22/24 14:29 08/27/24 08:51 2,000 UNIT Fluoxetine HCl 40 mg DAILY PO 08/23/24 10:00 08/27/24 08:51 40 MG Hydrochlorothiazide 12.5 mg DAILY PO 08/23/24 10:00 08/27/24 08:49 12.5 MG Sucralfate 1 gm QID@0600,1130,1700,2200 PO 08/23/24 17:00 08/27/24 05:24 1 GM Aspirin 81 mg DAILY PO 08/25/24 10:00 08/27/24 08:48 81 MG Clopidogrel Bisulfate 75 mg DAILY PO 08/25/24 10:00 08/27/24 08:51 75 MG Laboratory Results Laboratory Tests 08/23/24 05:36 08/23/24 10:20 Urinalysis Test 08/22/24 22:00 Urine Color Light-yellow (Yellow) Urine Clarity Clear (Clear) Urine pH 6.0 (5.0-9.0) Urine Specific [place] 1.018 (1.001-1.035) Urine Protein Negative (Negative) Urine Ketones Negative (Negative) Urine Blood Negative /uL (Negative) Urine Nitrite Negative (Negative) Urine Bilirubin Negative (Negative) Urine Urobilinogen Normal mg/dL (Negative) Urine Leukocyte Esterase Negative /uL (Negative) Urine RBC None seen /hpf (0 - 3) Urine Microscopic WBC < 1 /HPF (0-3) Urine Squamous Epithelial Cells None seen /hpf (<5) Urine Bacteria None seen /hpf (None Seen) Urine Glucose Normal mg/dL (Normal) Labs and/or images reviewed: Labs reviewed by me, Image(s) reviewed by me Assessment/Plan Assessment/Plan Acute abdominal pain: Pantoprazole Carafate consult for GI Dr.N Willingham EGD by Dr Glenis Willingham 08-24-24: Severe grade C erosive esophagitis with esophageal ulcers extending into the distal 8-10 cm of the esophagus from which biopsies were obtained Mild to moderate antral gastritis with involvement of the pyloric channel pylorospasm and superficial pyloric channel ulceration from which biopsies were obtained continue pantoprazole and Carafate History of esophagitis Hypertension Hypercholesterolemia Bipolar History of brain aneurysm status post clipping in [facility] History of C-spine surgery two years ago Schizophrenia Chronic current smoker Resume aspirin and Plavix Patient lives in the Room and Board Physical therapy ordered Patient's insurance [facility] denied authorization to go to [facility] facility and advised the patient can go on p.o. pantoprazole instead of IV pantoprazole Discharged back to board and care Medications transmitted to the pharmacy Plan discussed with: Patient My Orders Orders - JOSSE DIAZ MD Procedure Category Date Status Time Pt Request For Service PT 08/26/24 Logged 10:18 Insert Midline ORDERS 08/26/24 Transmitted 10:45 * Pre Fabricator CONS 08/26/24 Transmitted Consult Date of Service: Aug 27, 2024 Billing Provider: JOSSE DIAZ MD Common Visit Codes: [id number] INP/OBS CARE(HIGH) JOSSE DIAZ MD Aug 27, 2024 10:27
[2024-08-27] MEDS ORDERED: SUCR1TAB31 PO (10:29)
[2024-08-27] MEDS ORDERED: PANT40T PO (10:29)
[2024-08-27 12:31] VITALS: BP 121/76; PULSE 67; RESP 17; TEMP 98; O2SAT 93
== END 2024-08-27 13:45 | disposition home or self-care (01) | DRG 392 ==
LOC: EDBD 03:05 → ER 03:05 → OVERFLOW 07:56 → EAST 17:31
PROVIDERS: ADMIT Family Medicine; ATTEND Family Medicine
PROC: 0DB68ZX Excision of Stomach, Via Natural or Artificial Opening Endoscopic, Diagnostic (ICD-10-PCS; 2024-08-24)
PROC: 0DB38ZX Excision of Lower Esophagus, Via Natural or Artificial Opening Endoscopic, Diagnostic (ICD-10-PCS; 2024-08-24)
PROC: 0DB98ZX Excision of Duodenum, Via Natural or Artificial Opening Endoscopic, Diagnostic (ICD-10-PCS; principal; 2024-08-24 17:25)
PROC: 05HF33Z Insertion of Infusion Device into Left Cephalic Vein, Percutaneous Approach (ICD-10-PCS; 2024-08-26)
PROC: B54NZZA Ultrasonography of Left Upper Extremity Veins, Guidance (ICD-10-PCS; 2024-08-26)
DX: K29.70 Gastritis, unspecified, without bleeding (principal); K22.10 Ulcer of esophagus without bleeding; F20.9 Schizophrenia, unspecified; F31.9 Bipolar disorder, unspecified; I10 Essential (primary) hypertension; K59.00 Constipation, unspecified; K31.3 Pylorospasm, not elsewhere classified; K44.9 Diaphragmatic hernia without obstruction or gangrene; F17.210 Nicotine dependence, cigarettes, uncomplicated; E78.00 Pure hypercholesterolemia, unspecified; Z82.49 Family history of ischemic heart disease and other diseases of the circulatory system; Z79.82 Long term (current) use of aspirin; Z79.899 Other long term (current) drug therapy
CPT/HCPCS: 36415; 43239; 71045; 74177; 80048; 80053; 81001; 83690; 84484; 85014; 85018; 85025; 87426; 93005; 96374; 96375; 97163; G0378; J2250; J2405; J2470; J3490

== ENCOUNTER 2024-09-12 01:17 | Inpatient (IN) | payer OTHER, MEDICAID ==
[~2024-09-12] VITALS: Ht 168.9 cm; Wt 96.8 kg
[~2024-09-12 01:17] MED LIST changes: +ASPI-665 PO; +ATOR40TA52 PO; +CHOL20003 PO; +CLOP75TA70 PO; +FLUO40CA PO; +GABA-1250 PO; +HYDR-4072 PO; +HYDR12.55 PO; +MET50T PO; -ONDA-180 PO; +PANT40T PO; +QUET100T47 PO; +SUCR1TAB31 PO
[2024-09-12] MEDS: HALOPERIDOL LACTATE 5 MG/ML INJ VIAL IM ONE (01:51)
[2024-09-12 02:20] VITALS: PULSE 78; RESP 74; O2SAT 96
[2024-09-12 03:41] LABS: Basophils # (auto) 0.1 10 ^3/uL (0-0.2); Basophils % (auto) 1.1 % (0.0-2.0); Eosinophils # (auto) 0.6 10 ^3/uL (0-0.8); Eosinophils % (auto) 8.7 % (0.0-7.0); Hematocrit 44.8 % (41.0-53.0); Hemoglobin 14.9 g/dL (13.5-17.5); Lymphocytes # (auto) 1.6 10 ^3/uL (0.4-5.4); Lymphocytes % (auto) 24.1 % (10.0-50.0); Mean Corpuscular Hemoglobin 28.4 pg (28.0-32.0); Mean Corpuscular Hgb Conc. 33.4 g/dL (32.0-36.0); Mean Corpuscular Volume 85.2 fL (80.0-100.0); Monocytes # (auto) 0.5 10 ^3/uL (0-1.3); Monocytes % (auto) 7.2 % (0.0-12.0); Neutrophils % (auto) 58.9 % (37.0-80.0); Nucleated Red Blood Cells % 0.1 %; Platelet Count (auto) 234 10^3/uL (140-450); Red Blood Cells 5.25 10^6/uL (4.5-5.90); Red Cell Distribution Width 19.6 % (11.8-14.3); White Blood Cell 6.7 10^3/uL (4.4-10.8)
[2024-09-12 03:54] LABS: Anion Gap 13 (5-15); BUN/Creatinine Ratio 10.7 (10.0-20.0); Blood Urea Nitrogen 16 mg/dL (9-23); Calcium 9.5 mg/dL (8.7-10.4); Carbon Dioxide 25 mmol/L (20-31); Magnesium 1.8 mg/dL (1.6-2.6); Total Protein 7.7 g/dL (5.7-8.2)
[2024-09-12 04:02] LABS: Lactic Acid w/Reflex 3.3 mmol/L (0.4-2.0)
[2024-09-12 04:03] LABS: Alanine Aminotransferase 54 U/L (7-40); Albumin 4.9 g/dL (3.2-4.8); Alkaline Phosphatase 129 U/L (46-116); Aspartate Aminotransferase 51 U/L (<34); Chloride 97 mmol/L (98-107); Glucose 127 mg/dL (74-106); Lipase 59 U/L (12-53); Potassium 3.2 mmol/L (3.5-5.1); Sodium 135 mmol/L (136-145)
[2024-09-12 04:04] LABS: Bilirubin, Total 0.5 mg/dL (0.2-1.0)
--- NOTE | 2024-09-12 04:05 | ED.PDOC ---
History of Present Illness HPI Comments 58-year-old male who is brought in by ambulance from home for altered level of consciousness. Per EMS report, family called, due to patient behaving unusual following alcohol consumption, earlier. Alcohol consumption amount reported to be either a couple of drinks to nonstop consumption of several beverages all day, today. Patient has a history of DM, HTN, HLD, GERD, and thrombosis with current Plavix use. Vitals were noted to have been stable and within normal limits, with a blood glucose of 169 and a 12 lead showing elevation V1, V2, and V3. Patient has no reported chest pain, shortness of breath, headache, dizziness, or further associated symptoms. 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 Chief Complaint: ALOC Time Seen by MD: :30 Reviewed Notes: Nurses Notes, Alfalfa Dehydrator Operator Notes, Medications, Allergies Allergies: Coded Allergies: NO KNOWN ALLERGIES (Unverified , 02/19/24) Home Meds Active Scripts Sucralfate (CARAFATE) 1 Gm Tab, 1 GM PO QID, #120 TAB Prov:JOSSE DIAZ MD 08/27/24 Pantoprazole Sodium Sesquihydr (Pantoprazole Sodium) 40 Mg Tab, 40 MG PO BID, #60 TAB Prov:JOSSE DIAZ MD 08/27/24 Famotidine (PEPCID TABLET) 20 Mg Tb, 1 TAB PO BID PRN for 10 Days, #20 TAB 5 Refills Prov:CHRISTEL LYON MD 02/20/24 Reported Medications Hydrocodone-Acetaminophen (Hydrocodone Bitartrate/AC 10-325 mg) 1 Tab Tab, 1 TAB PO, TAB 09/12/24 Metoprolol Tartrate (Metoprolol Tartrate) 50 Mg Tab, 50 MG PO BID, TAB 09/12/24 Hydrochlorothiazide (Hydrochlorothiazide) 12.5 Mg Tab, 1 TAB PO DAILY 09/12/24 Aspirin (Aspirin Regular Strength) 325 Mg Tab, 1 TAB PO DAILY 09/12/24 Clopidogrel Bisulfate (CLOPIDOGREL) 75 Mg Tab, 1 TAB PO DAILY 09/12/24 Gabapentin (Gabapentin) 300 Mg Cap, 1 CAP PO TID 09/12/24 Atorvastatin Calcium (ATORVASTATIN CALCIUM) 40 Mg Tab, 1 TAB PO HS 09/12/24 Sucralfate (Sucralfate) 1 Gm Tab, 1 TAB PO QID 09/12/24 Fluoxetine Hcl (Fluoxetine Hcl) 40 Mg Cap, 1 CAP PO DAILY 09/12/24 Metoprolol Tartrate (LOPRESSOR TABLET) 50 Mg Tb, 1 TAB PO BID 08/22/24 Cholecalciferol (Vitamin D-3 Super Strengt) 2,000 Unit Tab, 1 TAB PO DAILY 08/22/24 Hydrocodone-Acetaminophen (Hydrocodone/Acetaminophen 10-325 mg) 1 Tab Tab, 1 TAB PO TIDPRN PRN 08/22/24 Aspirin (Aspirin Regular Strength) 325 Mg Tab, 1 TAB PO DAILY 08/22/24 Hydrochlorothiazide (Hydrochlorothiazide) 12.5 Mg Tab, 1 TAB PO DAILY 08/22/24 Clopidogrel Bisulfate (CLOPIDOGREL) 75 Mg Tab, 1 TAB PO DAILY 08/22/24 Quetiapine Fumerate (QUETIAPINE FUMARATE) 100 Mg Tab, 1 TAB PO HS 08/22/24 Gabapentin (Gabapentin) 300 Mg Cap, 1 CAP PO TID 08/22/24 Fluoxetine Hcl (Fluoxetine Hcl) 40 Mg Cap, 1 CAP PO DAILY 08/22/24 Atorvastatin Calcium (ATORVASTATIN CALCIUM) 40 Mg Tab, 1 TAB PO DAILY 08/22/24 Information Source: Emergency Med Personnel Mode of Arrival: EMS Severity: Moderate Timing: Hours Duration: Since onset Prehospital treatment: 12 Lead EKG, Accucheck, Electrical Maintenance Supervisor Review of Systems: REVIEW OF SYSTEMS: No fever, no chills, or fatigue HEENT: No sore throat, no earache, no congestion, no neck pain. Cardiac: No chest pain. No palpitations. Lungs: No shortness of breath, no cough. GI: No nausea, no vomiting, no diarrhea, no constipation, no abdominal pain : No dysuria, frequency, or urgency. No hematuria. Musculoskeletal: No joint pain , no joint swelling, no extremity edema. Skin: No rash, no itching. Neuro: Altered level of consciousness. No headache, no dizziness, no weakness Vital Signs Vital Signs Date Time Temp Pulse Resp B/P (MAP) Pulse Ox O2 Delivery O2 Flow Rate FiO2 09/12/24 07:30 79 14 110/82 (91) 94 09/12/24 07:30 Room Air* 0 21 09/12/24 02:35 98.1 98.1 Physical Exam General: Awake, intoxicated. No acute distress. Skin: Skin in warm, dry and intact. Appropriate color for ethnicity. HEENT: The head is normocephalic and atraumatic. Conjunctivae are clear without exudates or hemorrhage. Sclera is non-icteric. EOM are intact. No signs of nystagmus. Eyelids are normal in appearance without swelling or lesions. Oral mucosa is pink and moist Neck: The neck is supple with normal range of motion. No JVD. Cardiac: Heart rate and rhythm are normal. No murmurs, gallops, or rubs are auscultated. Respiratory: No signs of respiratory distress. Lung sounds are clear in all lobes bilaterally without rales, rhonchi, or wheezes. Abdominal: Abdomen is soft, non-tender without distention, guarding or rigidity. Bowel sounds are present and normoactive in all four quadrants. Extremities: Upper and lower extremities are atraumatic in appearance without deformity or edema. Neurological: The patient is awake, speech is slurred. There is no facial asymmetry. Psychiatric: Intoxicated mood and affect. Past Medical History PAST MEDICAL HISTORY: DM, GERD, High Lipids, HTN Past Medical History (Other): Thrombosis Surgical History: Unknown, Unobtainable Family History Family History: Unknown, Unobtainable Social History Smoker: Unknown, Unobtainable Alcohol: Heavy Drugs: Unknown, Unobtainable Lives In: Home Was a procedure done? Was a procedure done?: No Differential Dx Considerations may include: Differential diagnosis considered includes but not limited to intracranial hemorrhage, stroke, head injury, seizure, metabolic disturbance, electrolyte imbalance, infection, substance intoxication, psychiatric cause, other systemic illness, other X-Ray, Labs, Meds, VS Vital Signs Date Time Temp Pulse Resp B/P (MAP) Pulse Ox O2 Delivery O2 Flow Rate FiO2 09/12/24 07:30 79 14 110/82 (91) 94 09/12/24 07:30 79 14 94 Room Air* 0 21 09/12/24 06:35 82 19 110/67 (81) 09/12/24 06:05 76 09/12/24 04:35 75 25 100/62 (75) 93 09/12/24 04:00 84 09/12/24 02:35 98.1 77 20 101/59 (73) 90 98.1 09/12/24 02:34 77 09/12/24 02:20 78 74 96 Room Air* 0 21 09/12/24 01:22 97.9 78 18 108/83 (91) 96 97.9 Lab Test 09/12/24 08:31 09/12/24 08:28 09/12/24 08:10 09/12/24 07:53 Range/Units Urine Color Colorless Yellow Urine Clarity Clear Clear Urine pH 6.0 5.0-9.0 Urine Specific [place] 1.006 1.001-1.035 Urine Protein Negative Negative Urine Ketones Negative Negative Urine Blood 1+ H Negative /uL Urine Nitrite Negative Negative Urine Bilirubin Negative Negative Urine Urobilinogen Normal Negative mg/dL Urine Leukocyte Esterase Negative Negative /uL Urine RBC <1 0 - 3 /hpf Urine Microscopic WBC 1 0-3 /HPF Urine Squamous Epithelial Cells Few <5 /hpf Urine Bacteria None seen None Seen /hpf Urine Glucose Normal Normal mg/dL Urine Opiates Screen Neg NEGATIVE Urine Fentanyl Screen Neg NEGATIVE Urine Barbiturates Screen Neg NEGATIVE Urine Phencyclidine Screen Neg NEGATIVE Urine Amphetamines Screen Neg NEGATIVE Urine Benzodiazepines Screen Neg NEGATIVE Urine Cocaine Screen Neg NEGATIVE Urine Cannabinoids Screen Neg NEGATIVE Lactic Acid Level 2.8 *H 0.4-2.0 mmol/L POC Glucose 115 H 70-106 mg/dl Influenza Type A Antigen Negative Negative Influenza Type B Antigen Negative Negative SARS-CoV-2 Antigen (Rapid) Negative NEGATIVE Test 09/12/24 06:50 09/12/24 04:40 09/12/24 03:22 Range/Units Troponin I High Sensitivity < 3 L < 3 L < 3 L </=54 ng/L Free Thyroxine (T4) Calculated 1.20 0.89-1.76 ng/dL Free Triiodothyronine (T3) pg/mL 3.44 2.3-4.2 pg/mL White Blood Count 6.7 4.4-10.8 10^3/uL Red Blood Count 5.25 4.5-5.90 10^6/uL Hemoglobin 14.9 13.5-17.5 g/dL Hematocrit 44.8 41.0-53.0 % Mean Corpuscular Volume 85.2 80.0-100.0 fL Mean Corpuscular Hemoglobin 28.4 28.0-32.0 pg Mean Corpuscular Hemoglobin Concent 33.4 32.0-36.0 g/dL Red Cell Distribution Width 19.6 H 11.8-14.3 % Platelet Count 234 140-450 10^3/uL Mean Platelet Volume 8.0 6.9-10.8 fL Neutrophils (%) (Auto) 58.9 37.0-80.0 % Lymphocytes (%) (Auto) 24.1 10.0-50.0 % Monocytes (%) (Auto) 7.2 0.0-12.0 % Eosinophils (%) (Auto) 8.7 H 0.0-7.0 % Basophils (%) (Auto) 1.1 0.0-2.0 % Neutrophils # (Auto) 4.0 1.6-8.6 10 ^3/uL Lymphocytes # (Auto) 1.6 0.4-5.4 10 ^3/uL Monocytes # (Auto) 0.5 0-1.3 10 ^3/uL Eosinophils # (Auto) 0.6 0-0.8 10 ^3/uL Basophils # (Auto) 0.1 0-0.2 10 ^3/uL Nucleated Red Blood Cells 0.1 % Sodium Level 135 L 136-145 mmol/L Potassium Level 3.2 L 3.5-5.1 mmol/L Chloride Level 97 L 98-107 mmol/L Carbon Dioxide Level 25 20-31 mmol/L Anion Gap 13 5-15 Blood Urea Nitrogen 16 9-23 mg/dL Creatinine 1.50 H 0.700-1.30 mg/dL Glomerular Filtration Rate Calc 54 >90 mL/min BUN/Creatinine Ratio 10.7 10.0-20.0 Serum Glucose 127 H 74-106 mg/dL Lactic Acid Level 3.3 *H 0.4-2.0 mmol/L Calcium Level 9.5 8.7-10.4 mg/dL Magnesium Level 1.8 1.6-2.6 mg/dL Total Bilirubin 0.5 0.2-1.0 mg/dL Aspartate Amino Transferase (AST) 51 H <34 U/L Alanine Aminotransferase (ALT) 54 H 7-40 U/L Alkaline Phosphatase 129 H 46-116 U/L B-Type Natriuretic Peptide 10.44 0-100 pg/mL Total Protein 7.7 5.7-8.2 g/dL Albumin 4.9 H 3.2-4.8 g/dL Lipase 59 H 12-53 U/L Thyroid Stimulating Hormone (TSH) 0.53 L 0.55-4.78 uIU/mL Plasma/Serum Blood Alcohol 305.1 H <10 mg/dL Microbiology Date/Time Source Procedure Growth Status 09/12/24 03:22 Blood Blood Culture - Final NO GROWTH AFTER 5 DAYS OF INCUBATION. Complete 09/12/24 03:15 Blood Blood Culture - Final NO GROWTH AFTER 5 DAYS OF INCUBATION. Complete Time of 1ST Reevaluation: 02:00 Reevaluation 1ST: Unchanged Patient Education/Counseling: Other (Patient is altered) Family Education/Counseling: No Family Present SEPSIS Sepsis Screen Date sepsis recognized/suspect: Sep 12, 2024 Time Sepsis recognized/suspect: 012 Recent Procedure: No On Antibiotic Therapy: No Respiratory Rate >20: No Heart Rate >90: No Temp<36 C (96.8 F) or >38.3 C: No SBP <90 or MAP <65 mmHG: No New Acute Mental Status Change: No Is the patient on CPAP, BIPAP,: No Physician Orders Chest Xray 1 View (09/12/24 01:37) Electrocardigram (09/12/24 01:37) Straight Cath. (09/12/24 ) Head Without Contrast (09/12/24 01:37) Electrical Maintenance Supervisor (09/12/24 ) Vital Signs Date Time Temp Pulse Resp B/P (MAP) Pulse Ox O2 Delivery O2 Flow Rate FiO2 09/12/24 07:30 79 14 110/82 (91) 94 09/12/24 07:30 79 14 94 Room Air* 0 21 09/12/24 06:35 82 19 110/67 (81) 09/12/24 06:05 76 09/12/24 04:35 75 25 100/62 (75) 93 09/12/24 04:00 84 09/12/24 02:35 98.1 77 20 101/59 (73) 90 98.1 09/12/24 02:34 77 09/12/24 02:20 78 74 96 Room Air* 0 21 09/12/24 01:22 97.9 78 18 108/83 (91) 96 97.9 Laboratory Tests Test 09/12/24 03:22 09/12/24 08:28 Lactic Acid Level 3.3 mmol/L (0.4-2.0) *H 2.8 mmol/L (0.4-2.0) *H White Blood Count 6.7 10^3/uL (4.4-10.8) Departure 1 Departure Time of Disposition: 05:20 Impression: Primary Impression: Altered mental status Additional Impressions: Alcohol intoxication Lactic acidemia Hypokalemia Hyponatremia MENA (acute kidney injury) Elevated LFTs Disposition: ADMITTED INPATIENT Condition: Stable Comments 58-year-old male arrived to the emergency department with altered mental status, intoxicated, uncooperative, unsafe for discharge, attempting to get out of bed, fall risk. Patient was placed in soft restraints and Haldol administered. Patient is stabilized in the ED Patient admitted to hospitalist service for further treatment, evaluation and monitoring. Extensive evaluation was performed in attempt to identify or rule out: (See differential diagnosis section) The following tests were ordered, and results were reviewed by me and discussed with patient: (See diagnostic results section) The following test were independently interpreted by me: N/A I reviewed and agreed with the following test results read by other providers: N/A I reviewed the following notes from the pt's past medical encounters: N/A Additional information was gathered from interviewing the following independent historians: EMS personnel Discussion of management or test interpretation with external physician/other qualified health critical care unit manager: N/A Decision regarding hospitalization or escalation of hospital level of care: Risks and benefits of admission for further treatment of patient's condition was considered however due to patient's stable condition patient will be discharged to follow up closely or return to care for worsening of condition or inability to follow up. Critical Care Note Critical Care Time?: No Stability Stability form required: No Heart Score Heart Score: Heart Score Response (Comments) Value History N/A 0 EKG N/A 0 Age N/A 0 Risk Factors N/A 0 Troponin N/A 0 Total 0 I personally scribed for RIVAS BLANK MD ([email or web address]) on 09/12/24 at 04:05. Electronically submitted by Pio Bess [email or web address]). I personally scribed for RIVAS BLANK MD ([email or web address]) on 09/12/24 at 04:45. Electronically submitted by Pio Bess [email or web address]). RIVAS BLANK MD Sep 12, 2024 04:05
[2024-09-12 05:03] LABS: Blood Alcohol 305.1 mg/dL (<10)
--- NOTE | 2024-09-12 05:07 | DVH ---
EXAM: CT HEAD WITHOUT CONTRAST INDICATION: ALTERED MENTAL STATUS TECHNIQUE: CT of the head without intravenous contrast. Radiation Dose : 1. Head: CT Dose: CTDI volume is 62 mGy. Dose-length product is 1099 mGy*cm The dose indicators for CT are the volume Computed Tomography (CT) Dose Index (CTDIvol) and the Dose Length Product (DLP), and are measured in units of mGy and mGy-cm, respectively. These indicators are not patient dose, but values generated from the CT scanner acquisition factors. The report includes radiation exposure data for exposures received during this examination. COMPARISON: None FINDINGS: There is no evidence of acute intracranial hemorrhage, extra-axial collection, mass effect, midline s hift, herniation or hydrocephalus. The ventricles, sulci and cisterns are age appropriate. The harden-white differentiation is intact. Patchy periventricular and subcortical white matter hypoattenuation is nonspecific but may be related to small vessel ischemic disease. Embolization coils in the region of the anterior cerebral artery. The visualized paranasal sinuses and mastoid air cells are clear. The surrounding soft tissues and osseous structures are unremarkable. Right frontal craniotomy. IMPRESSION: No acute intracranial abnormality. Radiation optimization: All CT scans at this facility use at least one of these dose optimization aaron hniques: automated exposure control mA and/or kV adjustment per patient size (includes targeted exam s where dose is matched to clinical indication) or iterative reconstruction.
--- NOTE | 2024-09-12 05:14 | DVH ---
EXAM: XR Chest, 1 View CLINICAL INDICATION: Pain TECHNIQUE: Frontal view of the chest. COMPARISON: No relevant prior studies available. FINDINGS: LUNGS AND PLEURAL SPACES: Unremarkable. No consolidation. No pneumothorax. HEART: Unremarkable. No cardiomegaly. MEDIASTINUM: Unremarkable. Normal mediastinal contour. BONES/JOINTS: Unremarkable. No acute fracture. IMPRESSION: No acute cardiopulmonary process.
[2024-09-12] MEDS: POTASSIUM CHL 20MEQ/100ML 100 ML IV ONE (06:04)
[2024-09-12] MEDS: SODIUM CHLORIDE 0.9% 1,000 ML IV ONE ×3 (06:05→09:31)
[2024-09-12 07:30] VITALS: PULSE 79; RESP 14; O2SAT 94
[2024-09-12 08:36] LABS: Urine Bacteria None Seen /hpf (None Seen)
[2024-09-12] MEDS ORDERED: ATOR40TA52 PO (08:39)
[2024-09-12] MEDS ORDERED: HYDR12.55 PO (08:39)
[2024-09-12] MEDS ORDERED: ASPI-665 PO (08:39)
[2024-09-12] MEDS ORDERED: METO-158 PO (08:39)
[2024-09-12] MEDS ORDERED: FLUO40CA PO (08:39)
[2024-09-12] MEDS ORDERED: SUCR1TAB PO (08:39)
[2024-09-12] MEDS ORDERED: GABA-1250 PO (08:39)
[2024-09-12] MEDS ORDERED: CLOP75TA70 PO (08:39)
[2024-09-12 08:41] LABS: Urine Blood 1+ /uL (Negative); Urine Clarity Clear (Clear); Urine Color Colorless (Yellow); Urine Protein, UAD Negative (Negative); Urine Specific Gravity 1.006 (1.001-1.035); Urine Squamous Epithelial Cell FEW /hpf (<5); Urine Urobilinogen Normal (Negative); Urine WBC 1 /HPF (0-3)
[2024-09-12] MEDS ORDERED: NITROGLYCERIN 0.4 MG SL TAB SL PRN (08:45)
[2024-09-12] MEDS ORDERED: HYDROcodone-ACET 5/325MG TAB PO PRN (08:45)
[2024-09-12] MEDS ORDERED: DOCUSATE SOD 100 MG CAP PO PRN (08:45)
[2024-09-12] MEDS ORDERED: ACETAMINOPHEN 325 MG TAB PO PRN (08:45)
[2024-09-12] MEDS ORDERED: ONDANSETRON HCL 4 MG/2 ML VIAL IV PRN (08:45)
[2024-09-12] MEDS ORDERED: LORazepam 2MG/ML-1ML VIAL IV PRN (08:45)
[2024-09-12] MEDS ORDERED: MORPHINE SULFATE INJ 2 MG/ml SYRG IV PRN (08:45)
[2024-09-12 08:55] LABS: Amphetamine Screen, Urine Neg (NEGATIVE); Barbiturate Scree,Urine Neg (NEGATIVE); Benzodiazephine Screen, Urine Neg (NEGATIVE); Cannabinoid Screen, Urine Neg (NEGATIVE); Cocaine Screen, Urine Neg (NEGATIVE); Opiate Scree,Urine Neg (NEGATIVE); Phencyclidine Screen, Urine Neg (NEGATIVE)
[2024-09-12 08:59] LABS: Rapid Influenza A Negative (Negative); Rapid Influenza B Negative (Negative)
[2024-09-12 09:00] LABS: COVID19 ANTIGEN SOFIA FIA NEGATIVE (NEGATIVE)
--- NOTE | 2024-09-12 09:29 | DVHHP2 ---
History of Present Illness Reason for Visit: ALOC History of Present Illness Wei Ojeda is a 58-year-old male with past medical history of hypertension, hyperlipidemia, brain aneurysm in 1995, who was brought to the hospital for ALOC. According to family the patient was drinking alcohol and began acting weird, prompting them to call EMS. When first in the ER the patient was not following commands or being cooperative with his care. At my time of a ssessment the patient is calm, answering questions, and agrees with the plan of care. Cardiovascular: HTN, hyperipidemia GI: GERD Past Surgical History: Other (Spine surgery) Smoke: <1 pack per day ALCOHOL: heavy Drugs: None Lives: with Family Domestic Violence: Neg Review of Systems Constitutional: No: Fever, Chills, Sweats, Weakness, Malaise, Other Eyes: No: Pain, Vision change, Conjunctivae inflammation, Eyelid inflammation, Other, Redness ENT: No: Ear pain, Ear discharge, Nose pain, Nose discharge, Nose congestion, Mouth pain, Mouth swelling, Throat pain, Throat swelling, Other Respiratory: No: Cough, Dry, Shortness of breath, SOB with excertion, Wheezing, Hemoptysis, Pleuritic Pain, Sputum, Wheezing, Other Cardiovascular: No: Chest Pain, Palpitations, Orthopnea, Paroxysmal Noc. Dyspnea, Edema, Lt Headedness, Other Gastrointestinal: No: Nausea, Vomiting, Abdominal Pain, Diarrhea, Constipation, Melena, Hematochezia, Other Genitourinary: No Dysuria, No Frequency, No Incontinence, No Hematuria, No Retention, No Other Musculoskeletal: No: other, neck pain, shoulder pain, arm pain, back pain, hand pain, leg pain, foot pain Skin: No: Rash, Lesions, Jaundice, Bruising, Other Neurological: Weakness, Incoordination, Change in speech, Confusion; No: Numbness, Seizures, Other Allergies: Coded Allergies: NO KNOWN ALLERGIES (Unverified , 09/12/24) Medications Current Medications Medications Dose Ordered Sig/Magdalene Route Start Time Stop Time Status Last Admin Dose Admin Multivitamins 1 tab DAILY PO 09/12/24 10:00 UNV Folic Acid 1 mg DAILY PO 09/12/24 10:00 UNV Thiamine HCl 100 mg DAILY PO 09/12/24 10:00 UNV Chlordiazepoxide HCl 50 mg Q8H PO 09/12/24 08:45 09/13/24 00:46 UNV Chlordiazepoxide HCl 50 mg Q12HR PO 09/13/24 10:00 09/13/24 22:01 UNV Chlordiazepoxide HCl 25 mg Q12HR PO 09/14/24 10:00 09/14/24 22:01 UNV Chlordiazepoxide HCl 25 mg QAM PO 09/15/24 07:00 09/15/24 07:01 UNV Lorazepam 1 mg Q2HP PRN IV 09/12/24 08:45 UNV Acetaminophen/ Hydrocodone Bitart 1 tab Q4HP PRN PO 09/12/24 08:45 UNV Ondansetron HCl 4 mg Q4HP PRN IV 09/12/24 08:45 UNV Docusate Sodium 100 mg BIDPRN PRN PO 09/12/24 08:45 UNV Acetaminophen 650 mg Q6HP PRN PO 09/12/24 08:45 UNV Nitroglycerin 0.4 mg Q5MINP PRN SL 09/12/24 08:45 UNV Morphine Sulfate 2 mg Q30M PRN IV 09/12/24 08:45 UNV Exam Vital Signs Vital Signs Date Time Temp Pulse Resp B/P (MAP) Pulse Ox O2 Delivery O2 Flow Rate FiO2 09/12/24 06:35 82 19 110/67 (81) 09/12/24 04:35 93 09/12/24 02:35 98.1 98.1 09/12/24 02:20 Room Air* 0 21 General Appearance: Alert, Oriented X3, Cooperative, mild distress HEENT: Atraumatic, PERRLA, Mucous membr. moist/pink Respiratory: Clear to auscultation, Normal air movement Cardiovascular: Regular rate, Normal S1, Normal S2, No murmurs Abdominal: Normal bowel sounds, Soft, No tenderness Extremities: No clubbing, No cyanosis, No edema, Normal pulses, No tenderness/swelling Skin: No rashes, No breakdown, No significant lesion Neuro: Normal gait, Normal speech, Strength at 5/5 X4 ext Psych/Mental Status: Mental status NL, Mood NL Labs/Xrays Labs Test 09/12/24 08:31 09/12/24 08:28 09/12/24 08:10 09/12/24 07:53 Range/Units POC Glucose 115 H 70-106 mg/dl Test 09/12/24 06:50 09/12/24 03:22 Range/Units Troponin I High Sensitivity < 3 L </=54 ng/L White Blood Count 6.7 4.4-10.8 10^3/uL Red Blood Count 5.25 4.5-5.90 10^6/uL Hemoglobin 14.9 13.5-17.5 g/dL Hematocrit 44.8 41.0-53.0 % Mean Corpuscular Volume 85.2 80.0-100.0 fL Mean Corpuscular Hemoglobin 28.4 28.0-32.0 pg Mean Corpuscular Hemoglobin Concent 33.4 32.0-36.0 g/dL Red Cell Distribution Width 19.6 H 11.8-14.3 % Platelet Count 234 140-450 10^3/uL Mean Platelet Volume 8.0 6.9-10.8 fL Neutrophils (%) (Auto) 58.9 37.0-80.0 % Lymphocytes (%) (Auto) 24.1 10.0-50.0 % Monocytes (%) (Auto) 7.2 0.0-12.0 % Eosinophils (%) (Auto) 8.7 H 0.0-7.0 % Basophils (%) (Auto) 1.1 0.0-2.0 % Neutrophils # (Auto) 4.0 1.6-8.6 10 ^3/uL Lymphocytes # (Auto) 1.6 0.4-5.4 10 ^3/uL Monocytes # (Auto) 0.5 0-1.3 10 ^3/uL Eosinophils # (Auto) 0.6 0-0.8 10 ^3/uL Basophils # (Auto) 0.1 0-0.2 10 ^3/uL Nucleated Red Blood Cells 0.1 % Sodium Level 135 L 136-145 mmol/L Potassium Level 3.2 L 3.5-5.1 mmol/L Chloride Level 97 L 98-107 mmol/L Carbon Dioxide Level 25 20-31 mmol/L Anion Gap 13 5-15 Blood Urea Nitrogen 16 9-23 mg/dL Creatinine 1.50 H 0.700-1.30 mg/dL Glomerular Filtration Rate Calc 54 >90 mL/min BUN/Creatinine Ratio 10.7 10.0-20.0 Serum Glucose 127 H 74-106 mg/dL Calcium Level 9.5 8.7-10.4 mg/dL Magnesium Level 1.8 1.6-2.6 mg/dL Total Bilirubin 0.5 0.2-1.0 mg/dL Aspartate Amino Transferase (AST) 51 H <34 U/L Alanine Aminotransferase (ALT) 54 H 7-40 U/L Alkaline Phosphatase 129 H 46-116 U/L B-Type Natriuretic Peptide 10.44 0-100 pg/mL Total Protein 7.7 5.7-8.2 g/dL Albumin 4.9 H 3.2-4.8 g/dL Lipase 59 H 12-53 U/L Thyroid Stimulating Hormone (TSH) 0.53 L 0.55-4.78 uIU/mL Plasma/Serum Blood Alcohol 305.1 H <10 mg/dL EXAM: XR Chest, 1 View FINDINGS: LUNGS AND PLEURAL SPACES: Unremarkable. No consolidation. No pneumothorax. HEART: Unremarkable. No cardiomegaly. MEDIASTINUM: Unremarkable. Normal mediastinal contour. BONES/JOINTS: Unremarkable. No acute fracture. IMPRESSION: No acute cardiopulmonary process. EXAM: CT HEAD WITHOUT CONTRAST FINDINGS: There is no evidence of acute intracranial hemorrhage, extra-axial collection, mass effect, midline shift, herniation or hydrocephalus. The ventricles, sulci and cisterns are age appropriate. The harden-white differentiation is intact. Patchy periventricular and subcortical white matter hypoattenuation is nonspecific but may be related to small vessel ischemic disease. Embolization coils in the region of the anterior cerebral artery. The visualized paranasal sinuses and mastoid air cells are clear. The surrounding soft tissues and osseous structures are unremarkable. Right frontal craniotomy. IMPRESSION: No acute intracranial abnormality. 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 Procedure Category Date Status Time Sodium Chloride 0.9% PHA 09/12/24 Logged 08:45 Multiple Vitamin PHA 09/12/24 Logged Tablet (Mvi Tab) 10:00 Folic Acid Tablet PHA 09/12/24 Logged 10:00 Thiamine Tab PHA 09/12/24 Logged 10:00 Chlordiazepoxide Hcl PHA 09/12/24 Logged Capsule (Librium Ca 08:45 Chlordiazepoxide Hcl PHA 09/13/24 Logged Capsule (Librium Ca 10:00 Chlordiazepoxide Hcl PHA 09/14/24 Logged Capsule (Librium Ca 10:00 Chlordiazepoxide Hcl PHA 09/15/24 Logged Capsule (Librium Ca 07:00 Lorazepam 2mg/Ml Inj PHA 09/12/24 Logged (Ativan Inj) 08:45 Admit ADMIT 09/12/24 Transmitted 08:33 Code Status CODE 09/12/24 Transmitted 08:33 2 Gm Sodium Diet DIET 09/12/24 Transmitted Breakfast Hydrocodone-Acet PHA 09/12/24 Logged 5/325mg Tab ([place] 08:45 Ondansetron Hcl PHA 09/12/24 Logged (Zofran) 08:45 Docusate Sodium PHA 09/12/24 Logged Capsule (Colace 08:45 Complete Blood Count LAB 09/13/24 Verified 04:00 Comprehensive LAB 09/13/24 Verified Metabolic Panel 04:00 Condition: Serious [place] 09/12/24 In Process 08:33 Acetaminophen Tablet PHA 09/12/24 Logged (Tylenol Tablet) 08:45 Nitroglycerin PHA 09/12/24 Logged Sublingual (Ntrostat 08:45 Morphine Sulfate PHA 09/12/24 Logged Injection 08:45 Stat Ekg For Chest [place] 09/12/24 In Process Pain 08:33 Notify Of Changes [facility] 09/12/24 In Process From Base 08:33 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 HALLEY 09/12/24 In Process 24 Hours 08:33 Emergency Dysrhythmia [place] 09/12/24 In Process Protocol 08:33 Rhythm Strips Once [place] 09/12/24 In Process Every Shift 08:33 Oxygen By Nasal RT 09/12/24 Transmitted Cannula 08:33 Aspirin Enteric PHA 09/12/24 Transmitted Coated Tablet 10:00 Clopidogrel Bisulfate PHA 09/12/24 Transmitted (Plavix) 10:00 Metoprolol Tartrate PHA 09/12/24 Transmitted Tablet (Lopressor Ta 10:00 Sucralfate Tab PHA 09/12/24 Transmitted (Carafate Tab) 12:00 (Nf) Atorvastatin PHA 09/12/24 Transmitted Calcium 22:00 (Nf) Fluoxetine Hcl PHA 09/12/24 Transmitted 10:00 (NF) PHA 09/12/24 Transmitted Hydrochlorothiazide 10:00 Date of Service: Sep 12, 2024 Billing Provider: SHELL VINCENT Common Visit Codes: [id number] INP/OBS CARE (MOD) SHELL VINCENT Sep 12, 2024 09:29
[2024-09-12] MEDS: chlordiazePOXIDE HCL 25 MG CAP PO SCH (09:31)
--- NOTE | 2024-09-12 09:50 | DVH ---
INDICATION: Transaminitis, ETOH abuse TECHNIQUE: Multiple real-time sonographic images of the abdomen were obtained. COMPARISON: None FINDINGS: The liver is heterogeneous in echogenicity. The liver measures 18cm. No intrahepatic bilia ry ductal dilatation is noted. The gallbladder wall measures 0.2 cm and is unremarkable. No gallstones or sludge is seen. The commo n duct measures 0.5 cm and is unremarkable. No pericholecystic fluid is noted. The right kidney measures 10cm. No hydronephrosis. The left kidney measures 11cm. No hydronephrosis . The pancreas is not well visualized due to obscuration from bowel gas. The visualized portions of the IVC and aorta are grossly unremarkable. IMPRESSION: Hepatic steatosis. Hepatomegaly.
[2024-09-12] MEDS ORDERED: PATIENTS OWN MEDICATION (Hydrochlorothiazide 1 TAB) PO SCH (10:00)
[2024-09-12] MEDS ORDERED: PATIENTS OWN MEDICATION (Fluoxetine Hcl 1 CAP) PO SCH (10:00)
[2024-09-12] MEDS: hydroCHLOROthiazide 25 MG TAB PO SCH (10:00)
[2024-09-12] MEDS: METOPROLOL TARTRATE 50 MG TAB PO SCH (10:00)
[2024-09-12] MEDS: FOLIC ACID 1 MG TAB PO SCH (10:04)
[2024-09-12] MEDS: FLUoxetine HCL 20 MG CAP PO SCH (10:05)
[2024-09-12] MEDS: CLOPIDOGREL BISULFATE 75 MG TAB PO SCH (10:05)
[2024-09-12] MEDS: ASPirin-EC 325mg tab PO SCH (10:05)
[2024-09-12] MEDS: THIAMINE HCL 100 MG TAB PO SCH (10:05)
[2024-09-12] MEDS: MULTIPLE VITAMIN TAB PO SCH (10:06)
[2024-09-12 10:11] LABS: Free T3 3.44 pg/mL (2.3-4.2)
[2024-09-12 10:13] LABS: Free T4 (Free Thyroxine) 1.2 ng/dL (0.89-1.76)
[2024-09-12] MEDS: SUCRALFATE 1 GM TAB PO SCH (12:22)
[2024-09-12 12:26] LABS: Potassium 3.9 mmol/L (3.5-5.1)
[2024-09-12 12:59] LABS: Magnesium 1.8 mg/dL (1.6-2.6)
[2024-09-12] MEDS: GABAPENTIN 300 MG CAP PO SCH (14:19)
[2024-09-12] MEDS: MAGNESIUM SULFATE 1GM/100ML 100 ML IV SCH (16:05)
[2024-09-12 19:35] VITALS: PULSE 92; RESP 20; O2SAT 90
[2024-09-12 20:40] VITALS: BP 143/76; PULSE 83; RESP 20; O2SAT 96
[2024-09-12] MEDS ORDERED: HYDR-4798 PO (21:28)
[2024-09-12] MEDS: ATORVASTATIN 20 MG TAB PO SCH (21:47)
[2024-09-12] MEDS ORDERED: PATIENTS OWN MEDICATION (Atorvastatin Calcium 1 TAB) PO SCH (22:00)
[2024-09-12 22:45] VITALS: PULSE 82; RESP 18; O2SAT 96
[2024-09-13 01:00] VITALS: BP 131/81; PULSE 84; RESP 18; TEMP 98; O2SAT 95
[2024-09-13 05:00] VITALS: BP 137/75; PULSE 82; RESP 18; TEMP 97.8; O2SAT 96
[2024-09-13 06:43] LABS: Albumin 3.8 g/dL (3.2-4.8); Alkaline Phosphatase 89 U/L (46-116); Anion Gap 11 (5-15); BUN/Creatinine Ratio 16.2 (10.0-20.0); Blood Urea Nitrogen 12 mg/dL (9-23); Calcium 8.9 mg/dL (8.7-10.4); Carbon Dioxide 27 mmol/L (20-31); Chloride 106 mmol/L (98-107); Glucose 91 mg/dL (74-106); Magnesium 1.7 mg/dL (1.6-2.6); Potassium 4.2 mmol/L (3.5-5.1); Sodium 144 mmol/L (136-145); Total Protein 5.9 g/dL (5.7-8.2)
[2024-09-13 06:44] LABS: Bilirubin, Total 0.3 mg/dL (0.2-1.0)
[2024-09-13 06:46] LABS: Basophils # (auto) 0.1 10 ^3/uL (0-0.2); Basophils % (auto) 1.1 % (0.0-2.0); Eosinophils # (auto) 0.4 10 ^3/uL (0-0.8); Eosinophils % (auto) 6.8 % (0.0-7.0); Hematocrit 34.9 % (41.0-53.0); Hemoglobin 11.6 g/dL (13.5-17.5); Lymphocytes # (auto) 1.2 10 ^3/uL (0.4-5.4); Lymphocytes % (auto) 21.8 % (10.0-50.0); Mean Corpuscular Hemoglobin 27.7 pg (28.0-32.0); Mean Corpuscular Hgb Conc. 33.2 g/dL (32.0-36.0); Mean Corpuscular Volume 83.2 fL (80.0-100.0); Monocytes # (auto) 0.6 10 ^3/uL (0-1.3); Monocytes % (auto) 10.4 % (0.0-12.0); Neutrophils # (auto) 3.3 10 ^3/uL (1.6-8.6); Neutrophils % (auto) 59.9 % (37.0-80.0); Nucleated Red Blood Cells % 0.2 %; Platelet Count (auto) 214 10^3/uL (140-450); Red Cell Distribution Width 19.6 % (11.8-14.3); White Blood Cell 5.5 10^3/uL (4.4-10.8)
[2024-09-13 06:51] LABS: Alanine Aminotransferase 45 U/L (7-40); Aspartate Aminotransferase 46 U/L (<34)
[2024-09-13 08:00] VITALS: PULSE 71
[2024-09-13 08:38] LABS: Platelet Estimate Adequate
[2024-09-13 09:00] VITALS: BP 130/75; PULSE 74; RESP 19; TEMP 97.6; O2SAT 98
[2024-09-13] MEDS: chlordiazePOXIDE HCL 25 MG CAP PO SCH (09:20)
--- NOTE | 2024-09-13 14:03 | ECG ---
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
--- NOTE | 2024-09-13 14:42 | DVHDS2 ---
Discharge Summary Date of Admission Sep 12, 2024 at 08:33 Date of Discharge: Sep 13, 2024 Labs/Diagnostic Data: Laboratory Results Test 09/13/24 05:49 09/12/24 16:00 09/12/24 08:31 09/12/24 08:10 White Blood Count 5.5 10^3/uL (4.4-10.8) Red Blood Count 4.20 10^6/uL (4.5-5.90) Hemoglobin 11.6 g/dL (13.5-17.5) Hematocrit 34.9 % (41.0-53.0) Mean Corpuscular Volume 83.2 fL (80.0-100.0) Mean Corpuscular Hemoglobin 27.7 pg (28.0-32.0) Mean Corpuscular Hemoglobin Concent 33.2 g/dL (32.0-36.0) Red Cell Distribution Width 19.6 % (11.8-14.3) Platelet Count 214 10^3/uL (140-450) Mean Platelet Volume 8.4 fL (6.9-10.8) Neutrophils (%) (Auto) 59.9 % (37.0-80.0) Lymphocytes (%) (Auto) 21.8 % (10.0-50.0) Monocytes (%) (Auto) 10.4 % (0.0-12.0) Eosinophils (%) (Auto) 6.8 % (0.0-7.0) Basophils (%) (Auto) 1.1 % (0.0-2.0) Neutrophils # (Auto) 3.3 10 ^3/uL (1.6-8.6) Lymphocytes # (Auto) 1.2 10 ^3/uL (0.4-5.4) Monocytes # (Auto) 0.6 10 ^3/uL (0-1.3) Eosinophils # (Auto) 0.4 10 ^3/uL (0-0.8) Basophils # (Auto) 0.1 10 ^3/uL (0-0.2) Nucleated Red Blood Cells 0.2 % Platelet Estimate Adequate Clumped Platelets None Sodium Level 144 mmol/L (136-145) Potassium Level 4.2 mmol/L (3.5-5.1) Chloride Level 106 mmol/L (98-107) Carbon Dioxide Level 27 mmol/L (20-31) Anion Gap 11 (5-15) Blood Urea Nitrogen 12 mg/dL (9-23) Creatinine 0.74 mg/dL (0.700-1.30) Glomerular Filtration Rate Calc 105 mL/min (>90) BUN/Creatinine Ratio 16.2 (10.0-20.0) Serum Glucose 91 mg/dL (74-106) Calcium Level 8.9 mg/dL (8.7-10.4) Magnesium Level 1.7 mg/dL (1.6-2.6) Total Bilirubin 0.3 mg/dL (0.2-1.0) Aspartate Amino Transferase (AST) 46 U/L (<34) Alanine Aminotransferase (ALT) 45 U/L (7-40) Alkaline Phosphatase 89 U/L (46-116) Total Protein 5.9 g/dL (5.7-8.2) Albumin 3.8 g/dL (3.2-4.8) Lactic Acid Level 2.0 mmol/L (0.4-2.0) Urine Color Colorless (Yellow) Urine Clarity Clear (Clear) Urine pH 6.0 (5.0-9.0) Urine Specific [place] 1.006 (1.001-1.035) Urine Protein Negative (Negative) Urine Ketones Negative (Negative) Urine Blood 1+ /uL (Negative) Urine Nitrite Negative (Negative) Urine Bilirubin Negative (Negative) Urine Urobilinogen Normal mg/dL (Negative) Urine Leukocyte Esterase Negative /uL (Negative) Urine RBC <1 /hpf (0 - 3) Urine Microscopic WBC 1 /HPF (0-3) Urine Squamous Epithelial Cells Few /hpf (<5) Urine Bacteria None seen /hpf (None Seen) Urine Glucose Normal mg/dL (Normal) Urine Opiates Screen Neg (NEGATIVE) Urine Fentanyl Screen Neg (NEGATIVE) Urine Barbiturates Screen Neg (NEGATIVE) Urine Phencyclidine Screen Neg (NEGATIVE) Urine Amphetamines Screen Neg (NEGATIVE) Urine Benzodiazepines Screen Neg (NEGATIVE) Urine Cocaine Screen Neg (NEGATIVE) Urine Cannabinoids Screen Neg (NEGATIVE) POC Glucose 115 mg/dl (70-106) Test 09/12/24 07:53 09/12/24 06:50 09/12/24 03:22 Influenza Type A Antigen Negative (Negative) Influenza Type B Antigen Negative (Negative) SARS-CoV-2 Antigen (Rapid) Negative (NEGATIVE) Troponin I High Sensitivity < 3 ng/L (</=54) Free Thyroxine (T4) Calculated 1.20 ng/dL (0.89-1.76) Free Triiodothyronine (T3) pg/mL 3.44 pg/mL (2.3-4.2) B-Type Natriuretic Peptide 10.44 pg/mL (0-100) Lipase 59 U/L (12-53) Thyroid Stimulating Hormone (TSH) 0.53 uIU/mL (0.55-4.78) Plasma/Serum Blood Alcohol 305.1 mg/dL (<10) Other Laboratory Tests 09/13/24 05:49 Brief Hx & Hospital Course: Wei Ojeda is a 58-year-old male with past medical history of hypertension, hyperlipidemia, brain aneurysm in 1995, who was brought to the hospital for ALOC. According to family the patient was drinking alcohol and began acting weird, prompting them to call EMS. When first in the ER the patient was not following commands or being cooperative with his care. At my time of assessment the patient is calm, answering questions, and agrees with the plan of care. Alcohol intoxication, Hypokalemia, Acute kidney injury, Dehydration, Transaminitis, Lactic acidosis, Hypertension, Hyperlipidemia, discharged to home Condition at Discharge: Fair Final Diagnosis/Problems List see above Discharge Disposition: Home Discharge Instruct/Medications Diet: Cardiac 2g Na,low cholest Activity: No Restrictions, As Tolerated Discharge Statement: "Patient was advised to return to the ER or call 911 if any headaches, dizziness, shortness of breath, chest pain, abdominal pain, bleeding, fevers, or worsening of medical condition. Patient was counseled about treatment plan, medications, possible side effects, patientverbalized understanding. All questions were answered to the best of my ability. This discharge took greater then 30 minutes in planning, reviewing documentation, counseling the patient, and discussing with other team members." ASSESSMENT ASSESSMENT Assessment Date of Service: Sep 13, 2024 Billing Provider: SABINO CAPONE DO Common Visit Codes: [id number] DISCH DAY >30min SABINO CAPONE DO Sep 13, 2024 14:42
[2024-09-14] MEDS ORDERED: chlordiazePOXIDE HCL 25 MG CAP PO SCH (10:00)
[2024-09-15] MEDS ORDERED: chlordiazePOXIDE HCL 25 MG CAP PO SCH (07:00)
== END 2024-09-13 16:34 | disposition home or self-care (01) | DRG 917 ==
LOC: ER 01:17 → EDBD 01:17 → OVERFLOW 08:33 → MERGE 08:33 → TELE-EAST 22:45
PROVIDERS: ADMIT Internal Medicine; ATTEND Internal Medicine
DX: T51.0X1A Toxic effect of ethanol, accidental (unintentional), initial encounter (principal); G92.8 Other toxic encephalopathy; N17.0 Acute kidney failure with tubular necrosis; E87.1 Hypo-osmolality and hyponatremia; E87.20 Acidosis, unspecified; E86.0 Dehydration; E78.5 Hyperlipidemia, unspecified; Z20.822 Contact with and (suspected) exposure to COVID-19; E87.6 Hypokalemia; F10.129 Alcohol abuse with intoxication, unspecified; I10 Essential (primary) hypertension; K21.9 Gastro-esophageal reflux disease without esophagitis; E11.9 Type 2 diabetes mellitus without complications; R74.01 Elevation of levels of liver transaminase levels; F17.210 Nicotine dependence, cigarettes, uncomplicated; Z79.899 Other long term (current) drug therapy; Y90.8 Blood alcohol level of 240 mg/100 ml or more; Y92.89 Other specified places as the place of occurrence of the external cause
CPT/HCPCS: 36415; 70450; 71045; 76700; 80053; 80307; 80320; 81001; 82962; 83605; 83690; 83735; 83880; 84132; 84439; 84443; 84481; 84484; 85025; 87040; 87426; 87804; 93005; 96365; 96372; G0378; J3480

== ENCOUNTER 2024-11-16 11:58 | Emergency (ER) | payer OTHER, MEDICAID ==
[~2024-11-16] VITALS: Ht 167.6 cm; Wt 99.3 kg
[~2024-11-16 11:58] MED LIST changes: +HYDR-4798 PO; +METO-158 PO; +SUCR1TAB PO
[2024-11-16 12:00] VITALS: BP 127/74; PULSE 104; RESP 18; O2SAT 96
--- NOTE | 2024-11-16 13:09 | ED.PDOC ---
Musculoskeletal HPI Comments THIS IS A 59 YEAR-OLD WHO PRESENTS TO THE ED WITH A CHIEF COMPLAINT OF R KNEE PAIN WITH ASSOCIATED SWELLING FOR X4 DAYS. PATIENT REPORTS BUMPING HIS R KNEE INTO A WALL. PATIENT HAS NO FURTHER COMPLAINTS AT THIS TIME AND OTHERWISE DENIES FURTHER ASSOCIATED SYMPTOMS OF CHEST PAIN, DIZZINESS, WEAKNESS, N/V, FEVER, OR CHILLS. PATIENT IS ALERT, ORIENTED X 4, AND HAS STEADY GAIT. Chief Complaint: Lower Extremity Time Seen by MD: 12:20 Reviewed Notes: Medications, Allergies Allergies: Coded Allergies: NO KNOWN ALLERGIES (Unverified , 02/19/24) Home Meds Active Scripts Sucralfate (CARAFATE) 1 Gm Tab, 1 GM PO QID, #120 TAB Prov:JOSSE DIAZ MD 08/27/24 Pantoprazole Sodium Sesquihydr (Pantoprazole Sodium) 40 Mg Tab, 40 MG PO BID, #60 TAB Prov:JOSSE DIAZ MD 08/27/24 Famotidine (PEPCID TABLET) 20 Mg Tb, 1 TAB PO BID PRN for 10 Days, #20 TAB 5 Refills Prov:CHRISTEL LYON MD 02/20/24 Reported Medications Hydrocodone-Acetaminophen (Hydrocodone Bitartrate/AC 10-325 mg) 1 Tab Tab, 1 TAB PO, TAB 09/12/24 Metoprolol Tartrate (Metoprolol Tartrate) 50 Mg Tab, 50 MG PO BID, TAB 09/12/24 Hydrochlorothiazide (Hydrochlorothiazide) 12.5 Mg Tab, 1 TAB PO DAILY 09/12/24 Aspirin (Aspirin Regular Strength) 325 Mg Tab, 1 TAB PO DAILY 09/12/24 Clopidogrel Bisulfate (CLOPIDOGREL) 75 Mg Tab, 1 TAB PO DAILY 09/12/24 Gabapentin (Gabapentin) 300 Mg Cap, 1 CAP PO TID 09/12/24 Atorvastatin Calcium (ATORVASTATIN CALCIUM) 40 Mg Tab, 1 TAB PO HS 09/12/24 Sucralfate (Sucralfate) 1 Gm Tab, 1 TAB PO QID 09/12/24 Fluoxetine Hcl (Fluoxetine Hcl) 40 Mg Cap, 1 CAP PO DAILY 09/12/24 Metoprolol Tartrate (LOPRESSOR TABLET) 50 Mg Tb, 1 TAB PO BID 08/22/24 Cholecalciferol (Vitamin D-3 Super Strengt) 2,000 Unit Tab, 1 TAB PO DAILY 08/22/24 Hydrocodone-Acetaminophen (Hydrocodone/Acetaminophen 10-325 mg) 1 Tab Tab, 1 TAB PO TIDPRN PRN 08/22/24 Aspirin (Aspirin Regular Strength) 325 Mg Tab, 1 TAB PO DAILY 08/22/24 Hydrochlorothiazide (Hydrochlorothiazide) 12.5 Mg Tab, 1 TAB PO DAILY 08/22/24 Clopidogrel Bisulfate (CLOPIDOGREL) 75 Mg Tab, 1 TAB PO DAILY 08/22/24 Quetiapine Fumerate (QUETIAPINE FUMARATE) 100 Mg Tab, 1 TAB PO HS 08/22/24 Gabapentin (Gabapentin) 300 Mg Cap, 1 CAP PO TID 08/22/24 Fluoxetine Hcl (Fluoxetine Hcl) 40 Mg Cap, 1 CAP PO DAILY 08/22/24 Atorvastatin Calcium (ATORVASTATIN CALCIUM) 40 Mg Tab, 1 TAB PO DAILY 08/22/24 Information Source: Patient Mode of Arrival: Ambulatory Location: Right Extremity Location: Knee Timing: Days Prehospital treatment: None Severity: Moderate Able to Move Extremity: Yes Pain: Moderate Onset of Symptoms: After Trauma Symptoms: Swelling, Pain DVT Risk Factors: NONE Last Tetanus: UTD Associated signs and symptoms: Knee pain (RIGHT ) Past Medical History PAST MEDICAL HISTORY: High Lipids, HTN Surgical History: Denies all surgeries Family History Family History: Reviewed,noncontributory to illness Social History Smoker: Non-Smoker Alcohol: Heavy Drugs: Denies Drug Use Lives In: Home Constitutional: denies: chills, diaphoresis, fatigue, fever, malaise, sweats, weakness, others EENTM: denies: blurred vision, double vision, ear bleeding, ear discharge, ear drainage, ear pain, ear ringing, eye pain, eye redness, hearing loss, mouth pain, mouth swelling, nasal discharge, nose bleeding, nose congestion, nose pain, photophobia, tearing, throat pain, throat swelling, voice changes, others Respiratory: denies: cough, hemoptysis, orthopnea, SOB at rest, shortness of breath, SOB with excertion, stridor, wheezing, others Cardiovascular: denies: chest pain, dizzy spells, diaphoresis, Dyspnea on exertion, edema, irregular heart beat, left arm pain, lightheadedness, palpitations, PND, syncope, others Gastrointestinal: denies: abdomen distended, abdominal pain, blood streaked bowels, constipated, diarrhea, dysphagia, difficulty swallowing, hematemesis, melena, nausea, poor appetite, poor fluid intake, rectal bleeding, rectal pain, vomiting, others Genitourinary: denies: burning, dysuria, flank pain, frequency, hematuria, incontinence, penile discharge, penile sore, pain, testicle pain, testicle swelling, urgency, others Neurological: denies: dizziness, fainting, headache, left sided numbness, left sided weakness, numbness, paresthesia, pre-existing deficit, right sided numbness, right sided weakness, seizure, speech problems, tingling, tremors, weakness, others Musculoskeletal: reports: joint pain; denies: back pain, gout, joint swelling, muscle pain, muscle stiffness, neck pain, others Integumetry: reports: bruises (RIGHT ANTERIOR KNEE, NO BONY TENDERNESS AND DEFORMITY. ); denies: change in color, change in hair/nails, dryness, laceration, lesions, lumps, rash, wounds, others Allergic/Immunocompromised: denies: Difficulty Healing, Frequent Infections, Hives, Itching, others Hematologic/Lymphatic: denies: anemia, blood clots, easy bleeding, easy bruising, swollen glands, others Endocrine: denies: excessive hunger, excessive sweating, excessive thirst, excessive urination, flushing, intolerance to cold, intolerance to heat, unexplained weight gain, unexplained weight loss, others Psychiatric: denies: anxiety, bipolar disorder, depression, hopeless, panic disorder, schizophrenia, sleepless, suicidal, others All Other Systems: Reviewed and Negative Physical Exam General Appearance: Mild Distress, Normal HEENT: Normal ENT Inspection, PERRL/EOMI, Pharynx Normal, TMs Normal Neck: Full Range of Motion, Non-Tender, Normal, Normal Inspection Respiratory: Chest Non-Tender, Lungs Clear, No Accessory Muscle Use, No Respiratory Distress, Normal Breath Sounds Cardiovascular: No Edema, No JVD, No Murmur, No Gallop, Normal Peripheral Pulse s, Regular Rate/Rhythm Breast Exam: Deferred Gastrointestinal: No Organomegaly, Non Tender, No Pulsatile Mass, Normal Bowel Sounds, Soft Genitalia: Deferred Pelvic: Deferred Rectal: Deferred Extremities: No calf tenderness, Normal capillary refill, Normal range of motion, No pedal edema, Tender (AND CONTUSION ON RIGHT ANTERIOR KNEE, NO BONY TENDERNESS AND DEFORMITY. ) Musculoskeletal : Apperance: Normal Neurologic: Alert, tree cutter II-XII nml as Tested, No Motor Deficits, Normal Affect, Normal Mood, No Sensory Deficits Cerebellar Function: Normal Reflexes: Normal Skin: Bruises (ON RIGHT ANTERIOR KNEE. ), Dry, Normal Color, Warm Peripheral Pulses: 2+ carotid (R), 2+ carotid (L), 2+ dorsalis pedis (R), 2+ dorsalis pedis (L) Lymphatic: No Adenopathy Was a procedure done? Was a procedure done?: No Differential Diagnosis EXT Differential Diagnosis: Fracture, Sprain, Contusion, Strain, Bursitis X-Ray, Labs, Meds, VS Vital Signs Date Time Temp Pulse Resp B/P (MAP) Pulse Ox O2 Delivery O2 Flow Rate FiO2 11/16/24 12:00 104 18 127/74 [address] [address] Ph: [phone] DIAGNOSTIC IMAGING Diagnostic Imaging Report : [id number] Signed PATIENT: GENI STAPLETON ACCT: [id number] UNIT: [id number] : 1965 LOC: ER ROOM / BED: / AGE / SEX: 59 / M ADM STATUS: REG ER SERVICE [id number] ORDERING PHYSICIAN: LUIS ENRIQUE CAMERON PROCEDURE(s): RKN3 - R KNEE 3V XRAY REASON: HIOT THE DOOR ORDER NUMBER(s): [id number], ACCESSION NUMBER(s): [id number] CLINICAL INDICATION: HIOT THE DOOR TECHNIQUE: XY R KNEE 3V XRAY Comparison: None FINDINGS/IMPRESSION: : There is no evidence of acute fracture or dislocation. Soft tissues are unremarkable. ATED BY: ANGEL SWAIN MD DICTATED DATE/TIME: 11/16/24 1308 SIGNED BY: ANGEL SWAIN MD SIGNED DATE/TIME: 11/16/24 1308 CC: X-Ray, Labs, Meds, VS Comment EXTERNAL MEDICAL RECORDS REVIEWED: [NONE] INDEPENDENT HISTORIANS: [NONE] SOCIAL DETERMINANTS OF HEALTH: [NONE] LABS ORDERED: NONE REVIEWED AND INTERPRETED RESULTS: NONE IMAGING ORDERED: R KNEE XRAY TREATMENTS ORDERED: NONE PROCEDURES PERFORMED: NONE CRITICAL CARE TIME: NONE I HAVE DISCUSSED THE PATIENT WITH THE ATTENDING PHYSICIAN, DR. BUSH, AND HE AGREES WITH THE PATIENT'S PLAN OF CARE AND DISPOSITION. BASED ON HISTORY OF PRESENT ILLNESS, AND PHYSICAL EXAM, PATIENT WILL BE DISCHARGED HOME. SHARED DECISION MAKING: DISCUSSED WITH PATIENT THAT THEIR WORKUP WAS NORMAL. PATIENT INSTRUCTED TO FOLLOW UP WITH PRIMARY CARE PROVIDER IN 1-2 DAYS FOR RE- EVALUATION OF SYMPTOMS. PATIENT VERBALIZES UNDERSTANDING TO RETURN TO ED FOR NEW OR WORSENING SYMPTOMS OR IF FOLLOW UP WITH PCP CANNOT BE OBTAINED. PATIENT FEELS COMFORTABLE GOING HOME AT THIS TIME. ALL QUESTIONS ADDRESSED AT TIME OF DISCHARGE. Images Reviewed?: Images reviewed and evaluated by me Time of 1ST Reevaluation: 13:08 Reevaluation 1ST: Improved Patient Education/Counseling: Diagnosis, Treatment, Need For Follow Up Family Education/Counseling: Diagnosis, Treatment, No Family Present Medical Screening: No EMC Exist At This Time Departure 1 Departure Time of Disposition: 13:30 Impression: Primary Impression: Contusion of right knee Qualified Codes: S80.01XA - Contusion of right knee, initial encounter Disposition: HOME / SELF CARE / HOMELESS Condition: Stable Additional Instructions: FOLLOW-UP WITH PCP IN 1 TO 2 DAYS. TAKE MEDICATIONS PRESCRIBED. RETURN TO ED FOR ANY NEW OR WORSENING SYMPTOMS. Discharged With: Self Critical Care Note Critical Care Time?: No Stability Stability form required: No Heart Score Heart Score: Heart Score Response (Comments) Value History N/A 0 EKG N/A 0 Age N/A 0 Risk Factors N/A 0 Troponin N/A 0 Total 0 I personally scribed for LUIS ENRIQUE CAMERON ([email or web address]) on 11/16/24 at 13:09. Electronically submitted by Isabel Gastelum (Dot [email or web address]). I personally scribed for LUIS ENRIQUE CAMERON ([email or web address]) on 11/16/24 at 13:13. Electronically submitted by Isabel Gastelum (Dot [email or web address]). I personally scribed for LUIS ENRIQUE CAMERON ([email or web address]) on 11/16/24 at 13:21. Electronically submitted by Isabel Gastelum (Dot [email or web address]). LUIS ENRIQUE CAMERON Nov 16, 2024 13:09
== END 2024-11-16 13:29 | disposition home or self-care (01) ==
LOC: ER 11:58
DX: S80.01XA Contusion of right knee, initial encounter (principal); E78.5 Hyperlipidemia, unspecified; I10 Essential (primary) hypertension; F10.90 Alcohol use, unspecified, uncomplicated; Z79.899 Other long term (current) drug therapy; Z79.82 Long term (current) use of aspirin; Z79.02 Long term (current) use of antithrombotics/antiplatelets; W22.01XA Walked into wall, initial encounter; Y93.89 Activity, other specified; Y92.098 Other place in other non-institutional residence as the place of occurrence of the external cause; Y99.8 Other external cause status; Y90.9 Presence of alcohol in blood, level not specified
CPT/HCPCS: 73562

== ENCOUNTER 2024-12-19 06:19 | Inpatient (IN) | payer MEDICARE, MEDICAID ==
[~2024-12-19] VITALS: Ht 167.6 cm; Wt 96.7 kg
--- NOTE | 2024-12-19 06:39 | ED.PDOC ---
GI ASSESSMENT HPI Comments 59 year old male presents to the ED via EMS with a chief complaint of abdominal pain onset today (12/19/24) around 00:00. Patient states he was trying to sleep around midnight, was not able to due to diffused abdominal pain as well as nausea/vomiting. Patient began experiencing cold symptoms 4 days ago, including cough, runny nose, congestion, intermittent shortness of breath, took OTC medication, symptoms had slight improvement. He has not taken his Protonix for the past 2 weeks. PMHx HTN, HLD. NO other symptoms or modifying factors present at this time. Time Seen by MD: 06:30 Reviewed Notes: Medications, Allergies Allergies: Coded Allergies: NO KNOWN ALLERGIES (Unverified , 02/19/24) Home Meds Active Scripts Sucralfate (CARAFATE) 1 Gm Tab, 1 GM PO QID, #120 TAB Prov:JOSSE DIAZ MD 08/27/24 Pantoprazole Sodium Sesquihydr (Pantoprazole Sodium) 40 Mg Tab, 40 MG PO BID, #60 TAB Prov:JOSSE DIAZ MD 08/27/24 Famotidine (PEPCID TABLET) 20 Mg Tb, 1 TAB PO BID PRN for 10 Days, #20 TAB 5 Refills Prov:CHRISTEL LYON MD 02/20/24 Reported Medications Hydrocodone-Acetaminophen (Hydrocodone Bitartrate/AC 10-325 mg) 1 Tab Tab, 1 TAB PO, TAB 09/12/24 Metoprolol Tartrate (Metoprolol Tartrate) 50 Mg Tab, 50 MG PO BID, TAB 09/12/24 Hydrochlorothiazide (Hydrochlorothiazide) 12.5 Mg Tab, 1 TAB PO DAILY 09/12/24 Aspirin (Aspirin Regular Strength) 325 Mg Tab, 1 TAB PO DAILY 09/12/24 Clopidogrel Bisulfate (CLOPIDOGREL) 75 Mg Tab, 1 TAB PO DAILY 09/12/24 Gabapentin (Gabapentin) 300 Mg Cap, 1 CAP PO TID 09/12/24 Atorvastatin Calcium (ATORVASTATIN CALCIUM) 40 Mg Tab, 1 TAB PO HS 09/12/24 Sucralfate (Sucralfate) 1 Gm Tab, 1 TAB PO QID 09/12/24 Fluoxetine Hcl (Fluoxetine Hcl) 40 Mg Cap, 1 CAP PO DAILY 09/12/24 Metoprolol Tartrate (LOPRESSOR TABLET) 50 Mg Tb, 1 TAB PO BID 08/22/24 Cholecalciferol (Vitamin D-3 Super Strengt) 2,000 Unit Tab, 1 TAB PO DAILY 08/22/24 Hydrocodone-Acetaminophen (Hydrocodone/Acetaminophen 10-325 mg) 1 Tab Tab, 1 TAB PO TIDPRN PRN 08/22/24 Aspirin (Aspirin Regular Strength) 325 Mg Tab, 1 TAB PO DAILY 08/22/24 Hydrochlorothiazide (Hydrochlorothiazide) 12.5 Mg Tab, 1 TAB PO DAILY 08/22/24 Clopidogrel Bisulfate (CLOPIDOGREL) 75 Mg Tab, 1 TAB PO DAILY 08/22/24 Quetiapine Fumerate (QUETIAPINE FUMARATE) 100 Mg Tab, 1 TAB PO HS 08/22/24 Gabapentin (Gabapentin) 300 Mg Cap, 1 CAP PO TID 08/22/24 Fluoxetine Hcl (Fluoxetine Hcl) 40 Mg Cap, 1 CAP PO DAILY 08/22/24 Atorvastatin Calcium (ATORVASTATIN CALCIUM) 40 Mg Tab, 1 TAB PO DAILY 08/22/24 Information Source: Patient, Emergency Med Personnel Timing: Hours Duration: Since onset Prehospital treatment: None Quality: Sharp Severity: Moderate Recent: None Recent Hx of: None Pain Location: Diffuse Modifying Factors: Nothing Associated sign and symptoms: Nausea, Vomiting, Abdominal Pain Past Medical History PAST MEDICAL HISTORY: High Lipids, HTN Past Medical History (Other): gastritis Surgical History: Denies all surgeries Family History Family History: Reviewed,noncontributory to illness Social History Smoker: Non-Smoker, Quit Greater Than 1 Year Alcohol: Heavy Drugs: Denies Drug Use Lives In: Home Constitutional: denies: chills, diaphoresis, fatigue, fever, malaise, sweats, weakness, others EENTM: reports: nose congestion; denies: blurred vision, double vision, ear bleeding, ear discharge, ear drainage, ear pain, ear ringing, eye pain, eye redness, hearing loss, mouth pain, mouth swelling, nasal discharge, nose bleeding, nose pain, photophobia, tearing, throat pain, throat swelling, voice changes, others Respiratory: reports: cough, shortness of breath; denies: hemoptysis, ort hopnea, SOB at rest, SOB with excertion, stridor, wheezing, others Cardiovascular: denies: chest pain, dizzy spells, diaphoresis, Dyspnea on exertion, edema, irregular heart beat, left arm pain, lightheadedness, palpitations, PND, syncope, others Gastrointestinal: reports: abdominal pain, nausea, vomiting; denies: abdomen distended, blood streaked bowels, constipated, diarrhea, dysphagia, difficulty swallowing, hematemesis, melena, poor appetite, poor fluid intake, rectal bleeding, rectal pain, others Genitourinary: denies: burning, dysuria, flank pain, frequency, hematuria, incontinence, penile discharge, penile sore, pain, testicle pain, testicle swelling, urgency, others Neurological: denies: dizziness, fainting, headache, left sided numbness, left sided weakness, numbness, paresthesia, pre-existing deficit, right sided numbness, right sided weakness, seizure, speech problems, tingling, tremors, weakness, others Musculoskeletal: denies: back pain, gout, joint pain, joint swelling, muscle pain, muscle stiffness, neck pain, others Integumetry: denies: bruises, change in color, change in hair/nails, dryness, laceration, lesions, lumps, rash, wounds, others Allergic/Immunocompromised: denies: Difficulty Healing, Frequent Infections, Hives, Itching, others Hematologic/Lymphatic: denies: anemia, blood clots, easy bleeding, easy bruising, swollen glands, others Endocrine: denies: excessive hunger, excessive sweating, excessive thirst, excessive urination, flushing, intolerance to cold, intolerance to heat, une xplained weight gain, unexplained weight loss, others Psychiatric: denies: anxiety, bipolar disorder, depression, hopeless, panic disorder, schizophrenia, sleepless, suicidal, others All Other Systems: Reviewed and Negative Physical Exam General Appearance: Moderate Distress, Normal HEENT: Normal ENT Inspection, Pharynx Normal, TMs Normal Neck: Full Range of Motion, Non-Tender, Normal, Normal Inspection Respiratory: Chest Non-Tender, Lungs Clear, No Accessory Muscle Use, No Respiratory Distress, Normal Breath Sounds Cardiovascular: No Edema, No JVD, No Murmur, No Gallop, Normal Peripheral Pulses, Regular Rate/Rhythm Breast Exam: Deferred Gastrointestinal: No Organomegaly, Non Tender, No Pulsatile Mass, Normal Bowel Sounds, Soft Genitalia: Deferred Pelvic: Deferred Rectal: Deferred Extremities: No calf tenderness, Normal capillary refill, Normal inspection, Normal range of motion, Non-tender, No pedal edema Musculoskeletal : Apperance: Normal Neurologic: Alert, ios 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 Was a procedure done?: No GI differential Dx Differential Diagnosis: Constipation, Diverticular disease, Esophagitis, Gastritis/PUD, Gastroenteritis X-Ray, Labs, Meds, VS Vital Signs Date Time Temp Pulse Resp B/P (MAP) Pulse Ox O2 Delivery O2 Flow Rate FiO2 12/19/24 06:54 98.4 100 18 137/87 95 98.4 Lab Test 12/19/24 06:46 Range/Units White Blood Count 3.8 L 4.4-10.8 10^3/uL Red Blood Count 4.29 L 4.5-5.90 10^6/uL Hemoglobin 12.6 L 13.5-17.5 g/dL Hematocrit 37.0 L 41.0-53.0 % Mean Corpuscular Volume 86.2 80.0-100.0 fL Mean Corpuscular Hemoglobin 29.3 28.0-32.0 pg Mean Corpuscular Hemoglobin Concent 34.0 32.0-36.0 g/dL Red Cell Distribution Width 16.6 H 11.8-14.3 % Platelet Count 234 140-450 10^3/uL Mean Platelet Volume 8.1 6.9-10.8 fL Neutrophils (%) (Auto) 65.0 37.0-80.0 % Lymphocytes (%) (Auto) 16.1 10.0-50.0 % Monocytes (%) (Auto) 9.3 0.0-12.0 % Eosinophils (%) (Auto) 8.7 H 0.0-7.0 % Basophils (%) (Auto) 0.9 0.0-2.0 % Neutrophils # (Auto) 2.5 1.6-8.6 10 ^3/uL Lymphocytes # (Auto) 0.6 0.4-5.4 10 ^3/uL Monocytes # (Auto) 0.4 0-1.3 10 ^3/uL Eosinophils # (Auto) 0.3 0-0.8 10 ^3/uL Basophils # (Auto) 0 0-0.2 10 ^3/uL Nucleated Red Blood Cells 0.1 % Sodium Level 134 L 136-145 mmol/L Potassium Level 3.7 3.5-5.1 mmol/L Chloride Level 96 L 98-107 mmol/L Carbon Dioxide Level 26 20-31 mmol/L Anion Gap 12 5-15 Blood Urea Nitrogen 15 9-23 mg/dL Creatinine 0.85 0.700-1.30 mg/dL Glomerular Filtration Rate Calc 100 >90 mL/min BUN/Creatinine Ratio 17.6 10.0-20.0 Serum Glucose 82 74-106 mg/dL Calcium Level 9.7 8.7-10.4 mg/dL Troponin I High Sensitivity 3 L </=54 ng/L Patient alert. Came in because of abdominal pain nausea vomiting. Vitals stable. Answering questions. Saturation pristine on room air. Continues to have abdominal pain. Cardiac marker within normal limits. Establish intravenous access. Was given fluids. Explained to the patient. Continue monitoring. Time of 1ST Reevaluation: 07:00 Reevaluation 1ST: Unchanged Patient Education/Counseling: Diagnosis, Treatment, Prognosis Family Education/Counseling: No Family Present SEPSIS Sepsis Screen Physician Orders Chest Portable (12/19/24 06:34) Ct Ab Pel Wo Con-No Oral Or Iv (12/19/24 08:13) Pantoprazole (Protonix) (12/19/24 08:15) Vital Signs Date Time Temp Pulse Resp B/P (MAP) Pulse Ox O2 Delivery O2 Flow Rate FiO2 12/19/24 06:54 98.4 100 18 137/87 95 98.4 Laboratory Tests Test 12/19/24 06:46 White Blood Count 3.8 10^3/uL (4.4-10.8) L Departure 1 Departure Time of Disposition: 08:12 Impression: Primary Impression: Acute abdominal pain Additional Impression: Gastritis Qualified Codes: K29.00 - Acute gastritis without bleeding Disposition: ADMITTED INPATIENT Admit to: Med Surg Condition: Guarded Critical Care Note Critical Care Time?: No Stability Stability form required: No Heart Score Heart Score: Heart Score Response (Comments) Value History N/A 0 EKG N/A 0 Age N/A 0 Risk Factors N/A 0 Troponin N/A 0 Total 0 I personally scribed for ELICEO BUSH MD ([email or web address]) on 12/19/24 at 06:39. Electronically submitted by Nancy Lehman ([email or web address]). ELICEO BUSH MD Dec 19, 2024 06:39
[2024-12-19 07:05] LABS: Hematocrit 37.0 % (41.0-53.0); Hemoglobin 12.6 g/dL (13.5-17.5); Mean Corpuscular Hemoglobin 29.3 pg (28.0-32.0); Mean Corpuscular Volume 86.2 fL (80.0-100.0); Nucleated Red Blood Cells % 0.1 %
[2024-12-19 07:11] LABS: Potassium 3.7 mmol/L (3.5-5.1)
[2024-12-19 07:12] LABS: Anion Gap 12 (5-15); Carbon Dioxide 26 mmol/L (20-31)
[2024-12-19 07:13] LABS: Calcium 9.7 mg/dL (8.7-10.4)
[2024-12-19 07:14] LABS: Chloride 96 mmol/L (98-107); Sodium 134 mmol/L (136-145)
[2024-12-19 07:17] LABS: BUN/Creatinine Ratio 17.6 (10.0-20.0); Blood Urea Nitrogen 15 mg/dL (9-23); Glucose 82 mg/dL (74-106)
--- NOTE | 2024-12-19 08:41 | DVH ---
INDICATION: sob TECHNIQUE: Frontal view of the chest. COMPARISON: XY CHEST XRAY 1 VIEW on DOS: 09/12/24, XY CHEST PORTABLE on DOS: 08/22/24, XY CHEST XRAY 1 V IEW on DOS: 01/28/24, XY CHEST PORTABLE on DOS: 10/29/23, XR CHEST 1 VIEW on DOS: 01/28/23 FINDINGS: . The heart and mediastinal contours are grossly unremarkable. There is no evidence of pleural disea se. The lungs are clear. The bony structures of the chest are intact without fracture. IMPRESSION: 1. No evidence of acute disease.
[2024-12-19] MEDS: PANTOPRAZOLE 40 MG/10 ML VIAL INJ IV ONE (09:59)
--- NOTE | 2024-12-19 13:54 | DVH ---
Indication: gastritis Technique: CT axial images of the abdomen and pelvis are obtained without contrast. Coronal and sagit megan reformats were obtained. Radiation Dose Information: CTDI volume is 22.98 mGy. Dose-length product is 3.92 mGy*cm Comparison: CT CT AB PEL WO CON-NO ORAL OR IV on DOS: 10/26/23, ECIDC on DOS: 12/27/21 FINDINGS: There is limited interpretation of the abdomen and pelvis without administration of intravenous contr ast. Lung bases demonstrate no pleural effusion. Adrenal glands demonstrate left adrenal adenoma measuring 2.2 cm. Right adrenal gland unremarkable. Spleen, pancreas unremarkable. Cirrhotic morphology liver. Hepatic steatosis. No CT evidence for ch olelithiasis. No hydronephrosis /nephrolithiasis. Stomach partially distended. Small bowel loops are normal in caliber. Moderate volume stool in the colon. Normal appendix. Abdominal aortic atherosclerotic disease. Bladder is partially distended. No free pelvic fluid. No in guinal lymphadenopathy. No aggressive osseous process. Moderate thoracolumbar degenerative disc disease. L5 pars defects. 6 mm anterolisthesis L5 on S1. IMPRESSION: Limited evaluation without contrast. Cirrhotic morphology appearance of the liver. Correlate with appropriate lab values / clinical histo ry. Hepatic steatosis. No hydronephrosis /nephrolithiasis. Other findings as described.
[2024-12-19] MEDS ORDERED: ONDANSETRON HCL 4 MG/2 ML VIAL IV PRN (15:45)
[2024-12-19] MEDS ORDERED: DOCUSATE SOD 100 MG CAP PO PRN (15:45)
[2024-12-19] MEDS ORDERED: ACETAMINOPHEN 325 MG TAB PO PRN (15:45)
[2024-12-19] MEDS ORDERED: METOCLOPRAMIDE HCL 5MG/ml INJ 2ml VIAL IV PRN (16:15)
[2024-12-19] MEDS ORDERED: LACTULOSE 20Gm/30ML SOLN PO PRN (16:15)
--- NOTE | 2024-12-19 16:40 | DVHHP2 ---
History of Present Illness Reason for Visit: Abdominal pain History of Present Illness Wei Ojeda is a 59-year-old male with past medical history of hypertension, hyperlipidemia, cirrhosis, bipolar, and schizophrenia, who came to the hospital for abdominal pain. Patient was seen here in August 2024 for abdominal pain. Had an EGD completed that showed gastritis, erosive esophagitis, with esophageal ulcers. He states he was placed on Protonix and Carafate, and doing better. He ran out of his medication about 2 weeks and has not been able to get it refilled. He states he began having abdominal pain a couple days ago. Last night it became severe and this morning he began having nausea and vomiting that lasted about 4 hours before he decided to come in. While the patient was in ER it was discovered that he has bed bugs. He was decontaminated and the room and board facility he lives at was notified. I spoke with Nikole there. Cardiovascular: HTN, hyperipidemia GI: GERD, Other (Gastritis) Psych: Bipolar, Schizophrenia Past Surgical History: Other (Brain aneurysm in 1995 treated with craniotomy and clip, then a preventative coil and stent 2022, spine surgery, jaw surgery) Smoke: <1 pack per day ALCOHOL: occassional Drugs: None Lives: Other (Board and care) Domestic Violence: Neg Review of Systems Constitutional: No: Fever, Chills, Sweats, Weakness, Malaise, Other Eyes: No: Pain, Vision change, Conjunctivae inflammation, Eyelid inflammation, Other, Redness ENT: No: Ear pain, Ear discharge, Nose pain, Nose discharge, Nose congestion, Mouth pain, Mouth swelling, Throat pain, Throat swelling, Other Respiratory: No: Cough, Dry, Shortness of breath, SOB with excertion, Wheezing, Hemoptysis, Pleuritic Pain, Sputum, Wheezing, Other Cardiovascular: No: Chest Pain, Palpitations, Orthopnea, Paroxysmal Noc. Dyspnea, Edema, Lt Headedness, Other Gastrointestinal: Nausea, Vomiting, Abdominal Pain; No: Diarrhea, Constipation, Melena, Hematochezia, Other Genitourinary: No Dysuria, No Frequency, No Incontinence, No Hematuria, No Retention, No Other Musculoskeletal: No: other, neck pain, shoulder pain, arm pain, back pain, hand pain, leg pain, foot pain Skin: No: Rash, Lesions, Jaundice, Bruising, Other Neurological: No: Weakness, Numbness, Incoordination, Change in speech, Confusion, Seizures, Other Allergies: Coded Allergies: NO KNOWN ALLERGIES (Unverified , 02/19/24) Medications Current Medications Medications Dose Ordered Sig/Magdalene Route Start Time Stop Time Status Last Admin Dose Admin Acetaminophen/ Hydrocodone Bitart 1 tab Q4HP PRN PO 12/19/24 15:45 UNV Ondansetron HCl 4 mg Q4HP PRN IV 12/19/24 15:45 UNV Docusate Sodium 100 mg BIDPRN PRN PO 12/19/24 15:45 UNV Acetaminophen 650 mg Q6HP PRN PO 12/19/24 15:45 UNV Pantoprazole Sodium 40 mg DAILY IV 12/20/24 10:00 UNV Aspirin 325 mg DAILY PO 12/20/24 10:00 UNV Clopidogrel Bisulfate 75 mg DAILY PO 12/20/24 10:00 UNV Gabapentin 300 mg TID PO 12/19/24 22:00 UNV Metoprolol Tartrate 50 mg BID PO 12/19/24 22:00 UNV Quetiapine Fumarate 100 mg HS PO 12/19/24 22:00 UNV Sucralfate 1 gm QID PO 12/19/24 18:00 UNV Patient Own Medication 1 tab HS PO 12/19/24 22:00 UNV Patient Own Medication 1 tab DAILY PO 12/20/24 10:00 UNV Patient Own Medication 1 cap DAILY PO 12/20/24 10:00 UNV Patient Own Medication 1 tab DAILY PO 12/20/24 10:00 UNV Exam Vital Signs Vital Signs Date Time Temp Pulse Resp B/P (MAP) Pulse Ox O2 Delivery O2 Flow Rate FiO2 12/19/24 14:10 98.9 89 17 135/81 (99) 92 98.9 General Appearance: Alert, Oriented X3, Cooperative, mild distress HEENT: Atraumatic, Other (mucous membr dry) Cardiovascular: Regular rate, Normal S1, Normal S2 Abdominal: Normal bowel sounds, Soft, No tenderness Extremities: No clubbing, No cyanosis, No edema, Normal pulses, No tend erness/swelling Skin: No rashes, No breakdown, No significant lesion Neuro: Normal gait, Normal speech, Strength at 5/5 X4 ext Psych/Mental Status: Mental status NL Labs/Xrays Labs Test 12/19/24 06:46 Range/Units White Blood Count 3.8 L 4.4-10.8 10^3/uL Red Blood Count 4.29 L 4.5-5.90 10^6/uL Hemoglobin 12.6 L 13.5-17.5 g/dL Hematocrit 37.0 L 41.0-53.0 % Mean Corpuscular Volume 86.2 80.0-100.0 fL Mean Corpuscular Hemoglobin 29.3 28.0-32.0 pg Mean Corpuscular Hemoglobin Concent 34.0 32.0-36.0 g/dL Red Cell Distribution Width 16.6 H 11.8-14.3 % Platelet Count 234 140-450 10^3/uL Mean Platelet Volume 8.1 6.9-10.8 fL Neutrophils (%) (Auto) 65.0 37.0-80.0 % Lymphocytes (%) (Auto) 16.1 10.0-50.0 % Monocytes (%) (Auto) 9.3 0.0-12.0 % Eosinophils (%) (Auto) 8.7 H 0.0-7.0 % Basophils (%) (Auto) 0.9 0.0-2.0 % Neutrophils # (Auto) 2.5 1.6-8.6 10 ^3/uL Lymphocytes # (Auto) 0.6 0.4-5.4 10 ^3/uL Monocytes # (Auto) 0.4 0-1.3 10 ^3/uL Eosinophils # (Auto) 0.3 0-0.8 10 ^3/uL Basophils # (Auto) 0 0-0.2 10 ^3/uL Nucleated Red Blood Cells 0.1 % Sodium Level 134 L 136-145 mmol/L Potassium Level 3.7 3.5-5.1 mmol/L Chloride Level 96 L 98-107 mmol/L Carbon Dioxide Level 26 20-31 mmol/L Anion Gap 12 5-15 Blood Urea Nitrogen 15 9-23 mg/dL Creatinine 0.85 0.700-1.30 mg/dL Glomerular Filtration Rate Calc 100 >90 mL/min BUN/Creatinine Ratio 17.6 10.0-20.0 Serum Glucose 82 74-106 mg/dL Calcium Level 9.7 8.7-10.4 mg/dL Troponin I High Sensitivity 3 L </=54 ng/L TECHNIQUE: Frontal view of the chest. COMPARISON: XY CHEST XRAY 1 VIEW on DOS: 09/12/24, XY CHEST PORTABLE on DOS: 08/22/24, XY CHEST XRAY 1 VIEW on DOS: 01/28/24, XY CHEST PORTABLE on DOS: 10/29/23, XR CHEST 1 VIEW on DOS: 01/28/23 FINDINGS: The heart and mediastinal contours are grossly unremarkable. There is no evidence of pleural disease. The lungs are clear. The bony structures of the chest are intact without fracture. IMPRESSION: 1. No evidence of acute disease. Technique: CT axial images of the abdomen and pelvis are obtained without contrast. FINDINGS: There is limited interpretation of the abdomen and pelvis without administration of intravenous contrast. Lung bases demonstrate no pleural effusion. Adrenal glands demonstrate left adrenal adenoma measuring 2.2 cm. Right adrenal gland unremarkable. Spleen, pancreas unremarkable. Cirrhotic morphology liver. Hepatic steatosis. No CT evidence for cholelithiasis. No hydronephrosis /nephrolithiasis. Stomach partially distended. Small bowel loops are normal in caliber. Moderate volume stool in the colon. Normal appendix. Abdominal aortic atherosclerotic disease. Bladder is partially distended. No free pelvic fluid. No inguinal lymphadenopathy. No aggressive osseous process. Moderate thoracolumbar degenerative disc disease. L5 pars defects. 6 mm anterolisthesis L5 on S1. IMPRESSION: Limited evaluation without contrast. Cirrhotic morphology appearance of the liver. Correlate with appropriate lab values / clinical history. Hepatic steatosis. No hydronephrosis /nephrolithiasis. SEPSIS Sepsis Screen Date sepsis recognized/suspect: Dec 19, 2024 Time Sepsis recognized/suspect: 0658 Recent Procedure: No On Antibiotic Therapy: No Respiratory Rate >20: No Heart Rate >90: No Temp<36 C (96.8 F) or >38.3 C: No SBP <90 or MAP <65 mmHG: No New Acute Mental Status Change: No Is the patient on CPAP, BIPAP,: No Physician Orders Ct Ab Pel Wo Con-No Oral Or Iv (12/19/24 08:13) Admit (12/19/24 15:45) Code Status (12/19/24 15:45) Hydrocodone-Acet 5/325mg Tab ([place] 5/32 (12/19/24 15:45) Ondansetron Hcl (Zofran) (12/19/24 15:45) Docusate Sodium Capsule (Colace Capsule) (12/19/24 15:45) Complete Blood Count (12/20/24 04:00) Comprehensive Metabolic Panel (12/20/24 04:00) Cardiac Diet-2gna,Lofat,Lochol (12/19/24 Dinner) Condition: Serious (12/19/24 15:45) Acetaminophen Tablet (Tylenol Tablet) (12/19/24 15:45) Pantoprazole (Protonix) (12/20/24 10:00) Aspirin Enteric Coated Tablet (Ecotrin E (12/20/24 10:00) Clopidogrel Bisulfate (Plavix) (12/20/24 10:00) Gabapentin Capsule (Neurontin Capsule) (12/19/24 22:00) Metoprolol Tartrate Tablet (Lopressor Ta (12/19/24 22:00) Quetiapine Fumarate Tablet (Seroquel Tab (12/19/24 22:00) Sucralfate Tab (Carafate Tab) (12/19/24 18:00) (Nf) Atorvastatin Calcium (12/19/24 22:00) (Nf) Cholecalciferol (Vitamin D-3 Super (12/20/24 10:00) (Nf) Fluoxetine Hcl (12/20/24 10:00) (Nf) Hydrochlorothiazide (12/20/24 10:00) Lactulose Oral (12/19/24 16:15) Lactulose Oral (12/19/24 16:15) Metoclopramide Injection (Reglan Injecti (12/19/24 16:15) Vital Signs Date Time Temp Pulse Resp B/P (MAP) Pulse Ox O2 Delivery O2 Flow Rate FiO2 12/19/24 14:10 98.9 89 17 135/81 (99) 92 98.9 12/19/24 10:38 94 16 137/90 (106) 95 Laboratory Tests Test 12/19/24 06:46 White Blood Count 3.8 10^3/uL (4.4-10.8) L Medications Medications Dose Ordered Sig/Magdalene Route Start Time Stop Time Status Last Admin Dose Admin Pantoprazole Sodium 40 mg ONCE ONCE IV 12/19/24 08:15 12/19/24 08:16 DC 12/19/24 09:59 40 MG Assessment/Plan Assessment/Plan Assessment: Gastritis, Intractable nausea and vomiting, Constipation, Hypertension, Hyperlipidemia, Bipolar, Schizophrenia, Plan: Admit to Med-Surg, IV Protonix, IV antiemetics, IV hydration, IV antibiotics, Carafate, Lactulose for constipation, Home medications reconciled, Plan discussed with: Patient My Orders Orders - 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 Procedure Category Date Status Time Admit ADMIT 12/19/24 Transmitted 15:45 Code Status CODE 12/19/24 Transmitted 15:45 Hydrocodone-Acet PHA 12/19/24 Logged 5/325mg Tab ([place] 15:45 Ondansetron Hcl PHA 12/19/24 Logged (Zofran) 15:45 Docusate Sodium PHA 12/19/24 Logged Capsule (Colace 15:45 Complete Blood Count LAB 12/20/24 Verified 04:00 Comprehensive LAB 12/20/24 Verified Metabolic Panel 04:00 Cardiac DIET 12/19/24 Transmitted Diet-2gna,Lofat,Lochol Dinner Condition: Serious [place] 12/19/24 In Process 15:45 Acetaminophen Tablet PHA 12/19/24 Logged (Tylenol Tablet) 15:45 Pantoprazole PHA 12/20/24 Logged (Protonix) 10:00 Aspirin Enteric PHA 12/20/24 Logged Coated Tablet 10:00 Clopidogrel Bisulfate PHA 12/20/24 Logged (Plavix) 10:00 Gabapentin Capsule PHA 12/19/24 Logged (Neurontin Capsule) 22:00 Metoprolol Tartrate PHA 12/19/24 Logged Tablet (Lopressor Ta 22:00 Quetiapine Fumarate PHA 12/19/24 Logged Tablet (Seroquel Tab 22:00 Sucralfate Tab PHA 12/19/24 Logged (Carafate Tab) 18:00 (Nf) Atorvastatin PHA 12/19/24 Logged Calcium 22:00 (Nf) Cholecalciferol PHA 12/20/24 Logged (Vitamin D-3 Super 10:00 (Nf) Fluoxetine Hcl PHA 12/20/24 Logged 10:00 (NF) PHA 12/20/24 Logged Hydrochlorothiazide 10:00 Lactulose Oral PHA 12/19/24 Verified 16:15 Lactulose Oral PHA 12/19/24 Verified 16:15 Metoclopramide PHA 12/19/24 Verified Injection (Reglan 16:15 Date of Service: Dec 19, 2024 Billing Provider: SHELL VINCENT Common Visit Codes: [id number] INP/OBS CARE (MOD) SHELL VINCENT Dec 19, 2024 16:40
[2024-12-19 17:09] VITALS: PULSE 82; RESP 15; O2SAT 98
[2024-12-19] MEDS: SODIUM CHLORIDE 0.9% 1,000 ML IV ONE (18:11)
[2024-12-19] MEDS: SUCRALFATE 1 GM TAB PO SCH (18:12)
[2024-12-19] MEDS: LACTULOSE 20Gm/30ML SOLN PO ONE (18:12)
[2024-12-19 19:12] VITALS: PULSE 86; RESP 14; O2SAT 97
[2024-12-19] MEDS: METOPROLOL TARTRATE 50 MG TAB PO SCH (21:51)
[2024-12-19] MEDS: ATORVASTATIN 20 MG TAB PO SCH (21:51)
[2024-12-19] MEDS: GABAPENTIN 300 MG CAP PO SCH (21:52)
[2024-12-20 05:27] LABS: Hematocrit 36.2 % (41.0-53.0); Hemoglobin 11.9 g/dL (13.5-17.5); Mean Corpuscular Hemoglobin 29.4 pg (28.0-32.0); Mean Corpuscular Volume 89.7 fL (80.0-100.0); Nucleated Red Blood Cells % 0.1 %
[2024-12-20 05:40] LABS: Alanine Aminotransferase 37 U/L (7-40); Albumin 4.0 g/dL (3.2-4.8); Alkaline Phosphatase 96 U/L (46-116); Anion Gap 11 (5-15); BUN/Creatinine Ratio 25.3 (10.0-20.0); Blood Urea Nitrogen 20 mg/dL (9-23); Calcium 8.7 mg/dL (8.7-10.4); Carbon Dioxide 27 mmol/L (20-31); Chloride 100 mmol/L (98-107); Potassium 4.3 mmol/L (3.5-5.1); Sodium 138 mmol/L (136-145); Total Protein 6.6 g/dL (5.7-8.2)
[2024-12-20 05:41] LABS: Bilirubin, Total 0.6 mg/dL (0.2-1.0)
[2024-12-20 06:00] LABS: Glucose 71 mg/dL (74-106)
[2024-12-20] MEDS: CLOPIDOGREL BISULFATE 75 MG TAB PO SCH (09:39)
[2024-12-20] MEDS: ASPirin-EC 325mg tab PO SCH (09:39)
[2024-12-20] MEDS: PANTOPRAZOLE 40 MG/10 ML VIAL INJ IV SCH (09:40)
[2024-12-20] MEDS: hydroCHLOROthiazide 25 MG TAB PO SCH (09:40)
[2024-12-20] MEDS: CHOLECALCIFEROL (VITD3) 1,000UNIT=25mCg TAB PO SCH (09:42)
[2024-12-20 11:20] VITALS: BP 108/77; PULSE 67; RESP 17; TEMP 97.8; O2SAT 94
[2024-12-20] MEDS ORDERED: QUET25TA37 PO (11:37)
[2024-12-20] MEDS ORDERED: QUET50TA PO (11:37)
[2024-12-20 12:33] VITALS: BP 108/77; PULSE 67; RESP 17; TEMP 97.8; O2SAT 94
[2024-12-20] MEDS: HYDROcodone-ACET 5/325MG TAB PO PRN (13:16)
--- NOTE | 2024-12-20 13:42 | DVHPN2 ---
Reviewed: H&P Changes from previous H/P or p: No Changes General: Per HPI Eyes: No Pain, No Vision change, No Conjunctivae inflammation, No Eyelid inflammation, No Other, No Redness ENT: No Ear pain, No Ear discharge, No Nose pain, No Nose discharge, No Nose congestion, No Mouth pain, No Mouth swelling, No Throat pain, No Throat swelling, No Other Cardiovascular: No Chest Pain, No Palpitations, No Orthopnea, No Paroxysmal Noc. Dyspnea, No Edema, No Lt Headedness, No Other Respiratory: No Cough, No Dry, No Shortness of breath, No SOB with excertion, No Wheezing, No Hemoptysis, No Pleuritic Pain, No Sputum, No Other Gastrointestinal: Nausea, Vomiting, Abdominal Pain; No Diarrhea, No Constipation, No Melena, No Hematochezia, No Other Genitourinary: No Dysuria, No Frequency, No Incontinence, No Hematuria, No Retention, No Other Musculoskeletal: No other, No neck pain, No shoulder pain, No arm pain, No back pain, No hand pain, No leg pain, No foot pain Skin: No Rash, No Lesions, No Jaundice, No Bruising, No Other Objective Vitals Vital Signs Date Time Temp Pulse Resp B/P (MAP) Pulse Ox O2 Delivery O2 Flow Rate FiO2 12/20/24 12:33 97.8 67 17 108/77 (87) 94 97.8 12/20/24 11:20 Room Air* 0 21 Intake/Output Intake and Output 12/20/24 07:00 Intake Total 150 ml Output Total 300 ml Balance -150 ml Intake IV Total 150 ml Output Urine Total 300 ml Exam GEN: Healthy appearing, well-developed, NAD. HEENT: NC/AT; MMM. CV: RRR, no m/r/g. LUNGS: CTAB, no w/r/c. ABD: Soft, NT/ND, NBS, no masses or organomegaly. EXT: skin Warm, well perfused. no rashes. No clubbing, cyanosis, or edema. NEURO: Ambulating with no limitations. No focal deficits. Medications Current Medications Medications Dose Ordered Sig/Magdalene Route Start Time Stop Time Status Last Admin Dose Admin Acetaminophen/ Hydrocodone Bitart 1 tab Q4HP PRN PO 12/19/24 15:45 12/20/24 13:16 1 TAB Ondansetron HCl 4 mg Q4HP PRN IV 12/19/24 15:45 Docusate Sodium 100 mg BIDPRN PRN PO 12/19/24 15:45 Acetaminophen 650 mg Q6HP PRN PO 12/19/24 15:45 Pantoprazole Sodium 40 mg DAILY IV 12/20/24 10:00 12/20/24 09:40 40 MG Aspirin 325 mg DAILY PO 12/20/24 10:00 12/20/24 09:39 325 MG Clopidogrel Bisulfate 75 mg DAILY PO 12/20/24 10:00 12/20/24 09:39 75 MG Gabapentin 300 mg TID PO 12/19/24 22:00 12/20/24 13:16 300 MG Metoprolol Tartrate 50 mg BID PO 12/19/24 22:00 12/20/24 09:42 50 MG Quetiapine Fumarate 100 mg HS PO 12/19/24 22:00 12/19/24 21:52 100 MG Sucralfate 1 gm ACHS PO 12/19/24 17:00 12/20/24 13:15 1 GM Atorvastatin Calcium 40 mg HS PO 12/19/24 22:00 12/19/24 21:51 40 MG Cholecalciferol 2,000 unit DAILY PO 12/20/24 10:00 12/20/24 09:42 2,000 UNIT Fluoxetine HCl 40 mg DAILY PO 12/20/24 10:00 12/20/24 09:39 40 MG Hydrochlorothiazide 12.5 mg DAILY PO 12/20/24 10:00 12/20/24 09:40 12.5 MG Lactulose 30 ml BIDPRN PRN PO 12/19/24 16:15 Metoclopramide HCl 10 mg Q8HPRN PRN IV 12/19/24 16:15 Metronidazole 100 ml @ 100 mls/hr Q8H IV 12/20/24 10:00 12/20/24 09:39 100 MLS/HR Ceftriaxone Sodium 50 ml @ 100 mls/hr DAILY@09 IV 12/20/24 09:00 12/20/24 09:38 100 MLS/HR Laboratory Results Laboratory Tests 12/20/24 04:30 Chemistry Test 12/20/24 04:30 Albumin 4.0 g/dL (3.2-4.8) Calcium Level 8.7 mg/dL (8.7-10.4) Total Protein 6.6 g/dL (5.7-8.2) LFT Test 12/20/24 04:30 Alanine Aminotransferase (ALT) 37 U/L (7-40) Alkaline Phosphatase 96 U/L (46-116) Aspartate Amino Transferase (AST) 52 U/L (13-40) H Total Bilirubin 0.6 mg/dL (0.2-1.0) Labs and/or images reviewed: Labs reviewed by me, Image(s) reviewed by me Assessment/Plan Assessment/Plan 59-year-old male with past medical history of hypertension, hyperlipidemia, cirrhosis, bipolar, and schizophrenia, who came to the hospital for abdominal pain. Patient was seen here in August 2024 for abdominal pain. Had an EGD completed that showed gastritis, erosive esophagitis, with esophageal ulcers. He states he was placed on Protonix and Carafate, and doing better. He ran out of his medication about 2 weeks and has not been able to get it refilled. He states he began having abdominal pain a couple days ago. Last night it became severe and this morning he began having nausea and vomiting that lasted about 4 hours before he decided to come in. While the patient was in ER it was discovered that he has bed bugs. Diagnosis: Gastritis, Intractable nausea and vomiting, Constipation, Hypertension, Hyperlipidemia, Bipolar, Schizophrenia, plan: IV Protonix, IV antiemetics, IV hydration, IV antibiotics, Carafate, Lactulose for constipation, Med surge Full code Plan discussed with: Patient Date of Service: Dec 20, 2024 Billing Provider: PINO BORREGO MD Common Visit Codes: [id number] INP/OBS CARE(HIGH) PINO BORREGO MD Dec 20, 2024 13:42
[2024-12-20 17:00] VITALS: BP 103/73; PULSE 74; RESP 17; TEMP 97.9; O2SAT 100
[2024-12-20 20:00] VITALS: PULSE 69; RESP 16; O2SAT 95
[2024-12-20 21:00] VITALS: BP 120/63; PULSE 69; RESP 19; TEMP 97.3; O2SAT 95
[2024-12-21 01:00] VITALS: BP 114/69; PULSE 71; RESP 19; TEMP 97.5; O2SAT 93
[2024-12-21 05:00] VITALS: BP 100/68; PULSE 68; RESP 18; TEMP 97.2; O2SAT 96
[2024-12-21 08:06] VITALS: PULSE 69; RESP 16; O2SAT 95
[2024-12-21 09:00] VITALS: BP 111/70; PULSE 75; RESP 18; TEMP 97.6; O2SAT 96
--- NOTE | 2024-12-21 11:22 | DVHPN2 ---
Reviewed: Care Plan, H&P Changes from previous H/P or p: No Changes General: Per HPI Eyes: No Pain, No Vision change, No Conjunctivae inflammation, No Eyelid inflammation, No Other, No Redness ENT: No Ear pain, No Ear discharge, No Nose pain, No Nose discharge, No Nose congestion, No Mouth pain, No Mouth swelling, No Throat pain, No Throat swelling, No Other Cardiovascular: No Chest Pain, No Palpitations, No Orthopnea, No Paroxysmal Noc. Dyspnea, No Edema, No Lt Headedness, No Other Respiratory: No Cough, No Dry, No Shortness of breath, No SOB with excertion, No Wheezing, No Hemoptysis, No Pleuritic Pain, No Sputum, No Other Gastrointestinal: Nausea, Vomiting, Abdominal Pain; No Diarrhea, No Constipation, No Melena, No Hematochezia, No Other Genitourinary: No Dysuria, No Frequency, No Incontinence, No Hematuria, No Retention, No Other Musculoskeletal: No other, No neck pain, No shoulder pain, No arm pain, No back pain, No hand pain, No leg pain, No foot pain Skin: No Rash, No Lesions, No Jaundice, No Bruising, No Other Objective Vitals Vital Signs Date Time Temp Pulse Resp B/P (MAP) Pulse Ox O2 Delivery O2 Flow Rate FiO2 12/21/24 09:15 95 108/67 12/21/24 09:00 97.6 18 96 97.6 12/21/24 08:06 Room Air* 0 21 Intake/Output Intake and Output 12/21/24 07:00 Intake Total 800 ml Balance 800 ml Intake Oral 700 ml IV Total 100 ml # Voids 11 Medications Current Medications Medications Dose Ordered Sig/Magdalene Route Start Time Stop Time Status Last Admin Dose Admin Acetaminophen/ Hydrocodone Bitart 1 tab Q4HP PRN PO 12/19/24 15:45 12/20/24 13:16 1 TAB Ondansetron HCl 4 mg Q4HP PRN IV 12/19/24 15:45 Docusate Sodium 100 mg BIDPRN PRN PO 12/19/24 15:45 Acetaminophen 650 mg Q6HP PRN PO 12/19/24 15:45 Pantoprazole Sodium 40 mg DAILY IV 12/20/24 10:00 12/20/24 09:40 40 MG Aspirin 325 mg DAILY PO 12/20/24 10:00 12/21/24 11:00 325 MG Clopidogrel Bisulfate 75 mg DAILY PO 12/20/24 10:00 12/21/24 09:14 75 MG Gabapentin 300 mg TID PO 12/19/24 22:00 12/21/24 05:49 300 MG Metoprolol Tartrate 50 mg BID PO 12/19/24 22:00 12/21/24 09:15 50 MG Quetiapine Fumarate 100 mg HS PO 12/19/24 22:00 12/20/24 21:54 100 MG Sucralfate 1 gm ACHS PO 12/19/24 17:00 12/21/24 11:00 1 GM Atorvastatin Calcium 40 mg HS PO 12/19/24 22:00 12/20/24 21:54 40 MG Cholecalciferol 2,000 unit DAILY PO 12/20/24 10:00 12/21/24 09:14 2,000 UNIT Fluoxetine HCl 40 mg DAILY PO 12/20/24 10:00 12/21/24 09:14 40 MG Hydrochlorothiazide 12.5 mg DAILY PO 12/20/24 10:00 12/20/24 09:40 12.5 MG Lactulose 30 ml BIDPRN PRN PO 12/19/24 16:15 Metoclopramide HCl 10 mg Q8HPRN PRN IV 12/19/24 16:15 Metronidazole 100 ml @ 100 mls/hr Q8H IV 12/20/24 10:00 12/21/24 09:14 100 MLS/HR Ceftriaxone Sodium 50 ml @ 100 mls/hr DAILY@09 IV 12/20/24 09:00 12/21/24 09:11 100 MLS/HR Laboratory Results Laboratory Tests 12/20/24 04:30 Labs and/or images reviewed: Labs reviewed by me, Image(s) reviewed by me Assessment/Plan Assessment/Plan Covering for Dr. Delacruz Acute gastritis Protonix, Zofran Intractable nausea and vomiting, Constipation, : Lactulose Hypertension, Hyperlipidemia, Acute dehydration: IV fluids Bipolar, Schizophrenia, Plan discussed with: Patient Date of Service: Dec 21, 2024 Billing Provider: JOSSE DIAZ MD Common Visit Codes: [id number] INP/OBS CARE(HIGH) JOSSE DIAZ MD Dec 21, 2024 11:22
[2024-12-21] MEDS ORDERED: PANT40T PO (11:31)
[2024-12-21] MEDS ORDERED: SUCR1TAB31 PO (11:31)
--- NOTE | 2024-12-21 11:35 | DVHDS2 ---
Discharge Summary Date of Admission Dec 19, 2024 at 15:45 Date of Discharge: Dec 21, 2024 Admitting Diagnosis Nausea vomiting Wounds: None Labs/Diagnostic Data: Laboratory Results Test 12/20/24 04:30 12/19/24 06:46 White Blood Count 2.9 10^3/uL (4.4-10.8) Red Blood Count 4.03 10^6/uL (4.5-5.90) Hemoglobin 11.9 g/dL (13.5-17.5) Hematocrit 36.2 % (41.0-53.0) Mean Corpuscular Volume 89.7 fL (80.0-100.0) Mean Corpuscular Hemoglobin 29.4 pg (28.0-32.0) Mean Corpuscular Hemoglobin Concent 32.8 g/dL (32.0-36.0) Red Cell Distribution Width 16.9 % (11.8-14.3) Platelet Count 190 10^3/uL (140-450) Mean Platelet Volume 8.1 fL (6.9-10.8) Neutrophils (%) (Auto) 47.8 % (37.0-80.0) Lymphocytes (%) (Auto) 29.7 % (10.0-50.0) Monocytes (%) (Auto) 15.5 % (0.0-12.0) Eosinophils (%) (Auto) 6.4 % (0.0-7.0) Basophils (%) (Auto) 0.6 % (0.0-2.0) Neutrophils # (Auto) 1.4 10 ^3/uL (1.6-8.6) Lymphocytes # (Auto) 0.9 10 ^3/uL (0.4-5.4) Monocytes # (Auto) 0.4 10 ^3/uL (0-1.3) Eosinophils # (Auto) 0.2 10 ^3/uL (0-0.8) Basophils # (Auto) 0 10 ^3/uL (0-0.2) Nucleated Red Blood Cells 0.1 % Sodium Level 138 mmol/L (136-145) Potassium Level 4.3 mmol/L (3.5-5.1) Chloride Level 100 mmol/L (98-107) Carbon Dioxide Level 27 mmol/L (20-31) Anion Gap 11 (5-15) Blood Urea Nitrogen 20 mg/dL (9-23) Creatinine 0.79 mg/dL (0.700-1.30) Glomerular Filtration Rate Calc 102 mL/min (>90) BUN/Creatinine Ratio 25.3 (10.0-20.0) Serum Glucose 71 mg/dL (74-106) Calcium Level 8.7 mg/dL (8.7-10.4) Total Bilirubin 0.6 mg/dL (0.2-1.0) Aspartate Amino Transferase (AST) 52 U/L (13-40) Alanine Aminotransferase (ALT) 37 U/L (7-40) Alkaline Phosphatase 96 U/L (46-116) Total Protein 6.6 g/dL (5.7-8.2) Albumin 4.0 g/dL (3.2-4.8) Troponin I High Sensitivity 3 ng/L (</=54) Other Laboratory Tests 12/20/24 04:30 Brief Hx & Hospital Course: 89-year-old male with a history of hypertension hypercholesterolemia bipolar schizophrenia chronic gastritis came in for nausea vomiting. All labs were normal treated with the Protonix and Zofran and Carafate feels well and being discharged home. Prescription for Carafate and pantoprazole transmitted to pharmacy Consults/Reason for consult None Operations or Procedures None Condition at Discharge: Fair Final Diagnosis/Problems List Acute gastritis Protonix, Zofran Intractable nausea and vomiting, Constipation, : Lactulose Hypertension, Hyperlipidemia, Acute dehydration: IV fluids Bipolar, Schizophrenia, Discharge Disposition: Home Discharge Instruct/Medications Diet: Cardiac 2g Na,low cholest Activity: Light activity Follow Up/Referral: Follow up with your primary Dr Continue all your previous home meds Medications: Carafate Pantoprazole Transmitted to pharmacy Scheduled Aspirin (Aspirin Regular Strength), 1 TAB PO DAILY, (Reported) Atorvastatin Calcium (Atorvastatin Calcium), 1 TAB PO HS, (Reported) Cholecalciferol (Vitamin D-3 Super Strengt), 1 TAB PO DAILY, (Reported) Clopidogrel Bisulfate (Clopidogrel), 1 TAB PO DAILY, (Reported) Fluoxetine Hcl (Fluoxetine Hcl), 1 CAP PO DAILY, (Reported) Gabapentin (Gabapentin), 1 CAP PO TID, (Reported) Hydrochlorothiazide (Hydrochlorothiazide), 1 TAB PO DAILY, (Reported) Metoprolol Tartrate (Lopressor Tablet), 1 TAB PO BID, (Reported) Pantoprazole Sodium Sesquihydr (Pantoprazole Sodium), 40 MG PO BID Pantoprazole Sodium Sesquihydr (Pantoprazole Sodium), 40 MG PO BID Quetiapine Fumerate (Quetiapine Fumarate), 1 TAB PO HS, (Reported) Quetiapine Fumerate (Seroquel), 25 MG PO DAILY, (Reported) Quetiapine Fumerate (Seroquel), 100 MG PO HS, (Reported) Sucralfate (Sucralfate), 1 TAB PO QID, (Reported) Sucralfate (Carafate), 1 GM PO QID Scheduled PRN Hydrocodone-Acetaminophen (Hydrocodone/Acetaminophen 10-325 mg), 1 TAB PO TIDPRN PRN, (Reported) Discontinued Medications Aspirin (Aspirin Regular Strength), 1 TAB PO DAILY, (Reported) Atorvastatin Calcium (Atorvastatin Calcium), 1 TAB PO DAILY, (Reported) Clopidogrel Bisulfate (Clopidogrel), 1 TAB PO DAILY, (Reported) Famotidine (Pepcid Tablet), 1 TAB PO BID PRN Fluoxetine Hcl (Fluoxetine Hcl), 1 CAP PO DAILY, (Reported) Gabapentin (Gabapentin), 1 CAP PO TID, (Reported) Hydrochlorothiazide (Hydrochlorothiazide), 1 TAB PO DAILY, (Reported) Hydrocodone-Acetaminophen (Hydrocodone Bitartrate/AC 10-325 mg), 1 TAB PO, (Reported) Metoprolol Tartrate (Metoprolol Tartrate), 50 MG PO BID, (Reported) Sucralfate (Carafate), 1 GM PO QID 35 (Time taken for discharge summary 35 minutes) Discharge Statement: "Patient was advised to return to the ER or call 911 if any headaches, dizziness, shortness of breath, chest pain, abdominal pain, bleeding, fevers, or worsening of medical condition. Patient was counseled about treatment plan, medications, possible side effects, patientverbalized understanding. All questions were answered to the best of my ability. This discharge took greater then 30 minutes in planning, reviewing documentation, counseling the patient, and discussing with other team members." ASSESSMENT ASSESSMENT Hospital Course Improved Assessment Acute gastritis Protonix, Zofran Intractable nausea and vomiting, Constipation, : Lactulose Hypertension, Hyperlipidemia, Acute dehydration: IV fluids Bipolar, Schizophrenia, Date of Service: Dec 21, 2024 Billing Provider: JOSSE DIAZ MD Common Visit Codes: 00954-ITJ/OBS DISCH DAY >30min JOSSE DIAZ MD Dec 21, 2024 11:35
[2024-12-21 13:00] VITALS: BP 115/61; PULSE 71; RESP 18; TEMP 98; O2SAT 95
== END 2024-12-21 13:00 | disposition home or self-care (01) | DRG 392 ==
LOC: EDUNIT# 06:19 → EDBD 06:19 → ER 06:19 → OVERFLOW 15:45 → CENTRAL 12-20 10:43
PROVIDERS: ADMIT Family Medicine; ATTEND Family Medicine
DX: K29.00 Acute gastritis without bleeding (principal); K21.9 Gastro-esophageal reflux disease without esophagitis; I10 Essential (primary) hypertension; F20.9 Schizophrenia, unspecified; F17.210 Nicotine dependence, cigarettes, uncomplicated; F31.9 Bipolar disorder, unspecified; K59.00 Constipation, unspecified; E86.0 Dehydration; E78.00 Pure hypercholesterolemia, unspecified; K74.60 Unspecified cirrhosis of liver; Z79.82 Long term (current) use of aspirin; Z79.899 Other long term (current) drug therapy
CPT/HCPCS: 36415; 71045; 74176; 80048; 80053; 84484; 85025; 96361; 96374; G0378; J2470; J3490

== ENCOUNTER 2025-03-07 11:10 | Emergency (ER) | payer OTHER, MEDICAID ==
[~2025-03-07] VITALS: Ht 170.2 cm; Wt 102.5 kg
[~2025-03-07 11:10] MED LIST changes: -FAMO20TA10 PO; -HYDR-4798 PO; -METO-158 PO; +QUET25TA37 PO; +QUET50TA PO
[2025-03-07 12:59] VITALS: BP 110/62; PULSE 86; RESP 18; TEMP 98.5; O2SAT 96
--- NOTE | 2025-03-07 13:58 | DVH ---
EXAM: XY R KNEE 3V XRAY HISTORY: Pain to the patella. COMPARISON: XY R KNEE 3V XRAY on DOS: 11/16/24. TECHNIQUE: 3 views of the right knee were performed. FINDINGS: No acute fracture is identified about the right knee. No significant joint space narrowing. [id number] suprapatellar joint effusion. IMPRESSION: 1. No acute fracture or dislocation. 2. [id number] suprapatellar joint effusion.
[2025-03-07] MEDS: HYDROcodone-ACET 7.5/325MG TAB PO ONE (14:25)
[2025-03-07] MEDS: IBUPROFEN 600 MG TAB PO ONE (14:25)
[2025-03-07] MEDS ORDERED: IBUP-1455 PO (14:27)
--- NOTE | 2025-03-07 14:28 | ED.PDOC ---
Musculoskeletal HPI Comments 59 yr M presents for right knee swelling and pain. The patient has a history of hypertension, prior aneurysm repair in 1995 (clip placed), subsequent stent and coil placement two years before this visit, and C3-C7 cervical fusion with plates and screws. The patient reports that the current symptoms are similar to a prior episode involving the left knee, which required hospitalization, joint drainage, and surgical cleaning. The right knee has been swollen and hot to touch for three days before this visit, with worsening pain over the patella for the last couple of days. The patient describes the pain as severe at the time of the visit. There is no history of trauma or fall preceding the onset of knee pain, though the patient did recently have a minor ankle injury when getting on a bus with an electric cart, which did not worsen the knee symptoms. The patient reports no fevers but mentions feeling like they might be "catching a cold" lately. The patient is currently taking medication for hypertension. There is no history of diabetes or IV drug use. The patient denies any recent new sexual partners. Past surgical history includes aneurysm repair (clip, stent, and coil) and C3-C7 cervical fusion. Chief Complaint: Lower Extremity Time Seen by MD: 12:34 Reviewed Notes: Nurses Notes, Medications, Allergies Allergies: Coded Allergies: NO KNOWN ALLERGIES (Unverified , 02/19/24) Home Meds Active Scripts Sucralfate (CARAFATE) 1 Gm Tab, 1 GM PO QID, #120 TAB Prov:JOSSE DIAZ MD 12/21/24 Pantoprazole Sodium Sesquihydr (Pantoprazole Sodium) 40 Mg Tab, 40 MG PO BID, #60 TAB Prov:JOSSE DIAZ MD 12/21/24 Pantoprazole Sodium Sesquihydr (Pantoprazole Sodium) 40 Mg Tab, 40 MG PO BID, #60 TAB Prov:JOSSE DIAZ MD 08/27/24 Reported Medications Quetiapine Fumerate (Seroquel) 50 Mg Tab, 100 MG PO HS for 30 Days, MG 12/20/24 Quetiapine Fumerate (Seroquel) 25 Mg Tab, 25 MG PO DAILY, TAB 12/20/24 Atorvastatin Calcium (ATORVASTATIN CALCIUM) 40 Mg Tab, 1 TAB PO HS 09/12/24 Sucralfate (Sucralfate) 1 Gm Tab, 1 TAB PO QID 09/12/24 Metoprolol Tartrate (LOPRESSOR TABLET) 50 Mg Tb, 1 TAB PO BID 08/22/24 Cholecalciferol (Vitamin D-3 Super Strengt) 2,000 Unit Tab, 1 TAB PO DAILY 08/22/24 Hydrocodone-Acetaminophen (Hydrocodone/Acetaminophen 10-325 mg) 1 Tab Tab, 1 TAB PO TIDPRN PRN 08/22/24 Aspirin (Aspirin Regular Strength) 325 Mg Tab, 1 TAB PO DAILY 08/22/24 Hydrochlorothiazide (Hydrochlorothiazide) 12.5 Mg Tab, 1 TAB PO DAILY 08/22/24 Clopidogrel Bisulfate (CLOPIDOGREL) 75 Mg Tab, 1 TAB PO DAILY 08/22/24 Quetiapine Fumerate (QUETIAPINE FUMARATE) 100 Mg Tab, 1 TAB PO HS 08/22/24 Gabapentin (Gabapentin) 300 Mg Cap, 1 CAP PO TID 08/22/24 Fluoxetine Hcl (Fluoxetine Hcl) 40 Mg Cap, 1 CAP PO DAILY 08/22/24 Information Source: Patient Mode of Arrival: Ambulatory Past Medical History PAST MEDICAL HISTORY: High Lipids, HTN Surgical History: Denies all surgeries Family History Family History: Reviewed,noncontributory to illness Social History Smoker: Non-Smoker, Quit Greater Than 1 Year Alcohol: Heavy Drugs: Denies Drug Use Lives In: Home All Other Systems: Reviewed and Negative (per hpi) Physical Exam General Appearance: No Apparent Distress, Normal HEENT: Normal ENT Inspection, Pharynx Normal, TMs Normal Neck: Full Range of Motion, Non-Tender, Normal, Normal Inspection Respiratory: Chest Non-Tender, Lungs Clear, No Accessory Muscle Use, No Respiratory Distress, Normal Breath Sounds Cardiovascular: No Edema, No JVD, No Murmur, No Gallop, Normal Peripheral Pulse s, Regular Rate/Rhythm Breast Exam: Deferred Gastrointestinal: No Organomegaly, Non Tender, No Pulsatile Mass, Normal Bowel Sounds, Soft Genitalia: Deferred Pelvic: Deferred Rectal: Deferred Extremities: No calf tenderness, Normal capillary refill, Normal inspection, Normal range of motion, Non-tender, No pedal edema Musculoskeletal : Location: Right Extremity Location: Knee (Deformity to the right knee. No abrasions lacerations hematomas open wounds. Patient complains of subjective pain to palpation to the patella. Area appears to be warm and mild erythema is appreciated. Complains of pain with flexion-extension. Strains 4/5. 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 Was a procedure done?: No Differential Diagnosis EXT Differential Diagnosis: Fracture, Sprain, Dislocation X-Ray, Labs, Meds, VS Vital Signs Date Time Temp Pulse Resp B/P (MAP) Pulse Ox O2 Delivery O2 Flow Rate FiO2 03/07/25 12:59 86 18 96 Room Air 03/07/25 12:59 98.5 86 18 110/62 (78) 96 98.5 03/07/25 11:18 97.6 103 18 137/83 95 97.6 X-Ray, Labs, Meds, VS Comment This is a patient with a history of hypertension, prior vascular interventions, and cervical fusion presenting with acute right knee pain No fever reported but possible infectious prodrome ("catching a cold"). No recent trauma to the knee, IV drug use, or new sexual partners. Obtain X-ray of right knee No calf or hip tenderness to suggest referred pain. Intact patellar mechanism and no instability on exam. Regarding the knee pain, there is no evidence of referred pain (no hip or leg tenderness on exam). The joint itself is non-irritable with range of motion exam and there is no overlying redness, warmth to suggest infection. The patellar and quadriceps tendon are non-tender and extension is intact. There is no instability with exam. In the ER the patient received Clifford and ibuprofen x1. Patient is stable for discharge at this time. External notes reviewed. Test results and diagnostic imaging interpreted. All diagnostic findings, discharge care, education and instructions provided Follow-up with PCP in 2 to 3 days Patient verbalized understanding and agreed to treatment plan Vital signs stable, afebrile, no acute distress noted Patient ambulatory with strong steady gait Advised to return precautions for any new or worsening symptoms, return to ER immediately for re-evaluation Patient is aware that the purpose of this visit was for an acute medical emergency requiring emergent stabilization. Chronic conditions, including malignancies have not been ruled out. Patient is instructed to follow up with PCP as directed and discharge instructions for continued care and workup. If unable to arrange follow-up, patient is to return to the emergency department for reassessment. Patient (parent or legal guardian if applicable) was given verbal and written discharge instructions and acknowledges understanding. Time of 1ST Reevaluation: 14:23 Reevaluation 1ST: Improved Patient Education/Counseling: Diagnosis, Treatment Family Education/Counseling: Diagnosis, Treatment Departure 1 Departure Time of Disposition: 14:27 Impression: Primary Impression: Knee pain Qualified Codes: M25.561 - Pain in right knee Disposition: 01 HOME / SELF CARE / HOMELESS Condition: Stable Additional Instructions: Discharge Note: Continue on your medications. Drink plenty of fluids. Follow up with your primary Dr. Take your prescriptions as ordered. If your condition becomes worse call and follow up with your primary Dr. for instructions or return to the ER if needed. Thank you for visiting [facility]. e-Prescriptions Ibuprofen Micronized (Ibuprofen) 800 Mg Tab 800 MG PO Q8HP PRN for 10 Days, #30 TAB 0 Refills Prov: MICHELLE LILLY NP 03/07/25 Discharged With: Self Critical Care Note Critical Care Time?: No Stability Stability form required: No Heart Score Heart Score: Heart Score Response (Comments) Value History N/A 0 EKG N/A 0 Age N/A 0 Risk Factors N/A 0 Troponin N/A 0 Total 0 MICHELLE LILLY NP Mar 07, 2025 14:28
== END 2025-03-07 14:34 | disposition home or self-care (01) ==
LOC: ER 11:10
DX: M25.561 Pain in right knee (principal); I10 Essential (primary) hypertension; E78.5 Hyperlipidemia, unspecified; Z79.899 Other long term (current) drug therapy
CPT/HCPCS: 73562